=== PATIENT | female | born 1985 | race Caucasian/White ===

== ENCOUNTER 2016-07-11 19:18 | Emergency (ER) | payer MEDICAID ==
[2016-07-11 19:27] VITALS: RESP 16
[2016-07-11] MEDS ORDERED: KETAMINE 500 MG/10 ML VIAL IM ONE (19:53)
--- NOTE | 2016-07-11 20:30 | EDPHY ---
H & P Stated Complaint: infection L wrist Time Seen by Provider: 07/11/16 19:23 HPI/ROS: CHIEF COMPLAINT: Left wrist abscess HISTORY OF PRESENT ILLNESS: The patient presents the emergency department with an abscess to her left wrist. The patient reportedly has a history of IV drug use. Patient also has a history of being deaf. She is able to communicate via writing. The patient denies additional abscesses or skin lesions. The patient denies fever. She has severe pain in the area of the abscess which is quite swollen. The patient denies any numbness in her hand. Patient does have a prior history of multiple dental infections. Patient denies antibiotic allergies. REVIEW OF SYSTEMS: A comprehensive 10 point review of systems is otherwise negative aside from elements mentioned in the history of present illness. Source: Patient Exam Limitations: No limitations - Personal History Tetanus Vaccine Date: < 10 years - Medical/Surgical History Hx Asthma: No Hx Chronic Respiratory Disease: No Hx Diabetes: No Hx Cardiac Disease: No Hx Renal Disease: No Hx Cirrhosis: No Hx Alcoholism: No Hx HIV/AIDS: No Hx Splenectomy or Spleen Trauma: No Other PMH: DEAF - Social History Smoking Status: Current every day smoker - Physical Exam Exam: General Appearance: Disheveled female, no acute distress Eyes: Pupils equal and round no pallor or injection ENT, Mouth: Chronically deaf Respiratory: There are no retractions, lungs are clear to auscultation Cardiovascular: Regular rate and rhythm Gastrointestinal: Abdomen is soft and nontender, no masses, bowel sounds normal Skin: Large abscess noted on the dorsum of the left hand over the wrist crease Musculoskeletal: Described above Constitutional: Initial Vital Signs Temperature (C) 36.3 C 07/11/16 19:21 Heart Rate 115 H 07/11/16 19:21 Respiratory Rate 16 07/11/16 19:21 Blood Pressure 120/67 07/11/16 19:21 O2 Sat (%) 93 07/11/16 19:21 Allergies/Adverse Reactions: chicken derived Allergy (Mild, Verified 05/22/15 19:51) oranges Allergy (Uncoded 05/22/15 19:51) Home Medications: Medication Instructions Recorded Amoxicillin Trihydrate [Amoxil] 500 mg PO TID 7 Days 05/22/15 Hydrocodone/APAP 5/325 [Birney 1 tab PO Q4 #10 tab 06/30/15 5/325] Penicillin V Potassium [Pen Vk] 500 mg PO Q6H 7 Days 06/30/15 Hydrocodone/APAP 5/325 [Birney 1 - 2 tab PO Q4H PRN #7 tab 07/27/15 5/325] Penicillin V Potassium [Pen Vk] 500 mg PO Q6H 10 Days 07/27/15 Penicillin V Potassium 500 mg PO TID #30 tablet 02/25/16 oxyCODONE/APAP 5/325 [Percocet 1 - 2 tab PO Q4-6PRN PRN #15 tab 02/25/16 5/325] Hydrocodone/APAP 5/325 [Birney 1 - 2 each PO Q6 PRN #20 tab 07/11/16 5/325] Sulfamethox/Tmp 800/160 mg 1 tab PO BID #20 tab 07/11/16 [Bactrim DS] Medical Decision Making Procedures: Procedure: Abscess drainage. The patient's abscess was located on the left wrist. Risks, benefits, alternatives discussed with the patient and consent obtained. The abscess was incised with a #11 blade and purulent drainage was expressed. The abscess cavity was copiously irrigated The procedure was performed by myself. ED Course/Re-evaluation: The patient presents to the ED with a shooter's abscess on her wrist. It was incised and drained in the ED by myself. It was copiously irrigated. There is no evidence of significant surrounding cellulitis. The patient will be started on a short course of Bactrim. She is advised to return to the emergency department for increasing pain, redness, swelling, fever or other concerns. Differential Diagnosis: Differential diagnosis considered includes abscess, cellulitis, necrotizing fasciitis - Data Points Medications Given: Discontinued Medications Ketamine HCl (Ketamine) 200 mg IM EDNOW ONE Stop: 07/11/16 19:54 Last Admin: 07/11/16 20:20 Dose: Not Given Departure - Departure Disposition: Home, Routine, Self-Care Clinical Impression: Abscess of arm, left Condition: Good Instructions: Abscess Follow-up (ED) Additional Instructions: 1. Take antibiotics as directed for next 7 days. 2. Return to the ED for recurrent pain, swelling, fever, increasing pain, increasing redness other concerns. 3. Please follow up with your regular physician as needed
[2016-07-11] MEDS ORDERED: HYDROCODONE/APAP 5/325 TAB PO ONE (20:32)
[2016-07-11] MEDS ORDERED: HYDROCODONE/APAP 5/325 TAB ONE (20:33)
[2016-07-11] MEDS ORDERED: SULFAMETHOX/TMP 800/160 MG 1 TAB PO ONE (20:33)
[2016-07-11] MEDS ORDERED: HYDROCOD/APAP 5/325 PREPACK#6 BTL TAKEHOME ONE (21:14)
[2016-07-11 21:25] VITALS: BP 93/67; PULSE 95; TEMP 98.2; O2SAT 98
== END 2016-07-11 21:25 | disposition home or self-care (01) ==
PROC: 0H9EXZZ Drainage of Left Lower Arm Skin, External Approach (ICD-10-PCS; principal; 2016-07-11)
DX: L02.414 Cutaneous abscess of left upper limb (principal); F17.200 Nicotine dependence, unspecified, uncomplicated

== ENCOUNTER 2016-10-06 09:30 | Emergency (ER) | payer MEDICAID ==
[2016-10-06 09:39] VITALS: TEMP 98.1
[2016-10-06] MEDS ORDERED: KETOROLAC 30 MG/1 ML SDV IVP ONE (11:58)
[2016-10-06 12:05] VITALS: O2SAT 96
[2016-10-06 12:09] LABS: % IMMATURE GRANULYOCYTES 0.8 % (0.0-1.1); ABSOLUTE IMMATURE GRANULOCYTES 0.14 10^3/uL (0.00-0.10); ADD DIFF? NO; ADD MORPH? NO; ADD SCAN? NO; ATYPICAL LYMPHOCYTE FLAG 0 (0-99); FRAGMENT RBC FLAG 0 (0-99); HEMATOCRIT 34.1 % (38.0-47.0); HEMOGLOBIN 11.7 g/dL (12.6-16.3); LEFT SHIFT FLG 10 (0-99); LIPEMIA HEMOLYSIS FLAG 90 (0-99); MEAN CELL HEMOGLOBIN 29.4 pg (27.9-34.1); MEAN CELL HEMOGLOBIN CONCENTR. 34.3 g/dL (32.4-36.7); MEAN CELL VOLUME 85.7 fL (81.5-99.8); MEAN PLATELET VOLUME 9.6 fL (8.7-11.7); PLATELET CLUMPS FLAG 0 (0-99); PLATELET COUNT 304 10^3/uL (150-400); RED BLOOD CELL COUNT 3.98 10^6/uL (4.18-5.33); RED CELL DISTRIBUTION WIDTH 12.7 % (11.5-15.2)
[2016-10-06 12:23] LABS: ANION GAP 8 mEq/L (8-16); CALCIUM 6.5 mg/dL (8.5-10.4); CARBON DIOXIDE 20 mEq/l (22-31); CHLORIDE 112 mEq/L (97-110); CREATININE 0.4 mg/dL (0.6-1.0); GLOMERULAR FILTRATION RATE > 60; GLUCOSE 71 mg/dL (70-100); POTASSIUM 2.8 mEq/L (3.5-5.2); SODIUM 140 mEq/L (134-144)
[2016-10-06] MEDS ORDERED: POTASSIUM CL 20 MEQ/15 ML UDCUP PO ONE (12:33)
[2016-10-06] MEDS ORDERED: MAGNESIUM SULF 1 GM/DEXTROSE 100 ML IV ONE (13:45)
--- NOTE | 2016-10-06 14:39 | EDPHY ---
H & P Stated Complaint: pain r leeg/inner thigh Time Seen by Provider: 10/06/16 09:47 HPI/ROS: Please note patient is deaf, academic adviser is used to communicate with patient Chief complaint: Right leg pain History of present illness: This is a 31-year-old female who presents to the emergency department with complaint of right leg pain. Patient reports the onset of right leg pain today. She reports pain to the inner thigh and outer aspect of the thigh. She states the pain is severe. It hurts to even touch. She states yesterday she had pain throughout her left leg although it is resolved. She is also reporting pain in her left hand after she took off a ring. She denies any specific precipitating factors. She denies alleviating factors. She denies other associated signs or symptoms including no fevers or trauma. Review of systems: A 10 point review of systems was obtained and other than described above was negative - Personal History LMP (Females 10-55): Over 28 Days Ago Current Tetanus/Diphtheria Vaccine: Yes Tetanus Vaccine Date: < 10 years - Medical/Surgical History Hx Asthma: No Hx Chronic Respiratory Disease: No Hx Diabetes: No Hx Cardiac Disease: No Hx Renal Disease: No Hx Cirrhosis: No Hx Alcoholism: No Hx HIV/AIDS: No Hx Splenectomy or Spleen Trauma: No Other PMH: DEAF - Social History Smoking Status: Current every day smoker - Physical Exam Exam: General Appearance: Alert, appears uncomfortable. Eyes: Pupils equal and round no pallor or injection. ENT, Mouth: Mucous membranes moist. Respiratory: There are no retractions, lungs are clear to auscultation. Cardiovascular: Tachycardic with regular rhythm. Gastrointestinal: Abdomen is soft and nontender, no masses, bowel sounds normal. Neurological: Alert. Strength and sensation intact and symmetrical. Skin: Warm and dry, no rashes. No skin lesions noted. Musculoskeletal: Head is normocephalic, atraumatic. Spine is nontender to palpation. Chest wall intact palpation. Discomfort diffusely on palpation of the left hand. Discomfort along the inner and outer aspect of the right thigh. No deformities noted. Patient is moving all extremities without difficulty. She is ambulating on her own. Psychiatric: Patient does appear agitated Constitutional: Initial Vital Signs Temperature (C) 36.7 C 10/06/16 09:35 Heart Rate 126 H 10/06/16 09:35 Respiratory Rate 20 10/06/16 09:35 Blood Pressure 99/79 L 10/06/16 09:35 O2 Sat (%) 95 10/06/16 09:35 O2 Delivery Mode Room Air Allergies/Adverse Reactions: chicken derived Allergy (Mild, Verified 10/06/16 09:34) oranges Allergy (Uncoded 05/22/15 19:51) Home Medications: Medication Instructions Recorded NK [No Known Home Meds] 10/06/16 Medical Decision Making - Diagnostics Imaging Results: Imaging Impressions Extremity Venous Study 10/06/16 11:34 Impression: No evidence of deep vein thrombosis in the right leg. Findings and recommendations discussed with CRISTINA Hemphill at 1241 hour, 2016. Final report concurs with initial preliminary interpretation. Obstetrics Ultrasound 10/06/16 13:41 Impression: 1. Normal transabdominal ultrasound appearance of the uterus and right ovary. 2. Could not complete the study to evaluate the left ovary today. 3. Based on the low positive quantitative hCG level, it is possible that the state is very early. If that is of clinical relevance, follow-up ultrasound/quantitative hCG is then suggested. Findings and recommendations discussed with CRISTINA Hemphill, at 1530 hours, on October 06, 2016. Final report concurs with initial preliminary interpretation. ED Course/Re-evaluation: Patient is discussed with my secondary supervising physician Dr. Shahriar Sanchez. Patient presents to the emergency department complaining of leg pain and secondarily hand pain. She is nontoxic. She is neurovascularly intact. Ultrasound of the right leg is negative for DVT, blood studies are concerning for decreased potassium and magnesium. Due to miscommunication with nursing staff I was told that patient had a negative test and Toradol was ordered. However it turned out that she did not have a test performed. After performing it it turned out that she has a positive test. Patient is informed of the positive test. I have moved on to evaluate complications as a source of discomfort an an ultrasound is ordered, it was not completed as patient refused transvaginal although what was performed was unremarkable. I ordered replenishment with magnesium IV but she refused. She did take oral potassium. I was working on correcting patient's electrolyte disturbances. Evaluating extremity pain and new diagnosis of . Further I had discussed the case with case management to began arranging follow-up care. Patient all of a sudden declined further treatment and asked to be discharged. A museum exhibit designer had been used for a period of time in the emergency department, we also communicated with patient via writing, I believe she clearly understood what was going on in terms of evaluation and treatment. Do believe she is competent to decide to leave on her own. She was informed she can return at any time. She was given referral information for outpatient follow-up. Patient left AMA. Differential Diagnosis: Included but not limited to musculoskeletal pain such as sprain or strain or fracture, thromboembolic disease, arthropathies, electrolyte disturbances - Data Points Laboratory Results: Laboratory Results 10/06/16 11:57 10/06/16 11:57 10/06/16 10/06/16 10/06/16 Unknown 13:00 13:00 WBC RBC Hgb Hct MCV MCH MCHC RDW Plt Count MPV Neut % (Auto) Lymph % (Auto) Orange % (Auto) Eos % (Auto) Baso % (Auto) Nucleat RBC Rel Count Absolute Neuts (auto) Absolute Lymphs (auto) Absolute Monos (auto) Absolute Eos (auto) Absolute Basos (auto) Absolute Nucleated RBC Immature Gran % Immature Gran # Sodium Potassium Chloride Carbon Dioxide Anion Gap BUN Creatinine Estimated GFR Glucose Calcium Magnesium Beta HCG, Qual POSITIVE Beta HCG, Quant 110.83 mIU/mL H mIU/mL (0-4.83) Patient ABO/Rh A POSITIVE 10/06/16 10/06/16 10/06/16 11:57 11:57 11:57 WBC 18.48 10^3/uL H 10^3/uL (3.80-9.50) RBC 3.98 10^6/uL L 10^6/uL (4.18-5.33) Hgb 11.7 g/dL L g/dL (12.6-16.3) Hct 34.1 % L % (38.0-47.0) MCV 85.7 fL fL (81.5-99.8) MCH 29.4 pg pg (27.9-34.1) MCHC 34.3 g/dL g/dL (32.4-36.7) RDW 12.7 % % (11.5-15.2) Plt Count 304 10^3/uL 10^3/uL (150-400) MPV 9.6 fL fL (8.7-11.7) Neut % (Auto) 76.3 % H % (39.3-74.2) Lymph % (Auto) 10.9 % L % (15.0-45.0) Orange % (Auto) 11.7 % % (4.5-13.0) Eos % (Auto) 0.0 % L % (0.6-7.6) Baso % (Auto) 0.3 % % (0.3-1.7) Nucleat RBC Rel Count 0.0 % % (0.0-0.2) Absolute Neuts (auto) 14.11 10^3/uL H 10^3/uL (1.70-6.50) Absolute Lymphs (auto) 2.02 10^3/uL 10^3/uL (1.00-3.00) Absolute Monos (auto) 2.16 10^3/uL H 10^3/uL (0.30-0.80) Absolute Eos (auto) 0.00 10^3/uL L 10^3/uL (0.03-0.40) Absolute Basos (auto) 0.05 10^3/uL 10^3/uL (0.02-0.10) Absolute Nucleated RBC 0.00 10^3/uL 10^3/uL (0-0.01) Immature Gran % 0.8 % % (0.0-1.1) Immature Gran # 0.14 10^3/uL H 10^3/uL (0.00-0.10) Sodium 140 mEq/L mEq/L (134-144) Potassium 2.8 mEq/L L mEq/L (3.5-5.2) Chloride 112 mEq/L H mEq/L (97-110) Carbon Dioxide 20 mEq/l L mEq/l (22-31) Anion Gap 8 mEq/L mEq/L (8-16) BUN 9 mg/dL mg/dL (7-23) Creatinine 0.4 mg/dL L mg/dL (0.6-1.0) Estimated GFR > 60 Glucose 71 mg/dL mg/dL (70-100) Calcium 6.5 mg/dL L mg/dL (8.5-10.4) Magnesium 1.4 mg/dL L mg/dL (1.6-2.3) Beta HCG, Qual Beta HCG, Quant Patient ABO/Rh Medications Given: Discontinued Medications Magnesium Sulfate/Dextrose (Magnesium Sulf 1 Gm (Premix)) 100 mls @ 100 mls/hr IV EDNOW ONE Stop: 10/06/16 14:44 Last Admin: 10/06/16 14:39 Dose: Not Given Ketorolac Tromethamine (Toradol) 30 mg IVP EDNOW ONE Stop: 10/06/16 11:59 Last Admin: 10/06/16 12:03 Dose: 30 mg Potassium Chloride (Potassium Chloride Oral Liquid) 20 meq PO EDNOW ONE Stop: 10/06/16 12:34 Last Admin: 10/06/16 12:40 Dose: 20 meq Departure - Departure Disposition: Against Medical Advice Clinical Impression: Leg pain, Condition: Good Instructions: (ED), Leg Pain (ED) Additional Instructions: You have been offered further evaluation and care in the emergency room including imaging studies, further medications and treatment and even possible admission to the hospital, you have declined, this is against medical advice, could have a life-threatening condition, if any time you want further evaluation please return to the emergency room. If your symptoms worsen return to the emergency room. Referrals: NONE *PRIMARY CARE P,. [Primary Care Provider] - As per Instructions [facility],. [Clinic] - As per Instructions
[2016-10-06 14:43] VITALS: BP 119/80; PULSE 110; RESP 18
[2016-10-07] MEDS ORDERED: THROMBIN (BOVINE) 20,000 UNIT VIAL TP ONE (21:25)
== END 2016-10-06 14:44 | disposition left against medical advice (07) ==
DX: O99.89 Other specified diseases and conditions complicating pregnancy, childbirth and the puerperium (principal); M79.604 Pain in right leg; F17.200 Nicotine dependence, unspecified, uncomplicated; Z3A.00 Weeks of gestation of pregnancy not specified
CPT/HCPCS: 96374; J1885; J3475

== ENCOUNTER 2016-10-07 05:59 | Inpatient (IN) | payer MEDICAID ==
--- NOTE | 2016-10-07 06:21 | EDPHY ---
H & P Source: Patient Exam Limitations: Language barrier - Personal History Tetanus Vaccine Date: < 10 years - Medical/Surgical History Hx Asthma: No Hx Chronic Respiratory Disease: No Hx Diabetes: No Hx Cardiac Disease: No Hx Renal Disease: No Hx Cirrhosis: No Hx Alcoholism: No Hx HIV/AIDS: No Hx Splenectomy or Spleen Trauma: No Other PMH: DEAF - Social History Smoking Status: Current every day smoker Time Seen by Provider: 10/07/16 06:01 HPI/ROS: History is limited as we are currently awaiting the communications designer to arrive. HPI The patient presents with continued right leg pain. She was seen in the emergency room yesterday and has been having pain for the last 2 days. When she got home from the ER, she went to bed, and awoke about an hour ago with very severe pain, yelling and screaming and pointing toward her right leg. The patient was in the emergency room yesterday for right leg pain. She had a DVT study which was unremarkable. Her HCG returned at 110. She had an abdominal OB ultrasound that revealed no obvious IUP. Labs were checked and her potassium was low at 2.8 , magnesium was also low. During her visit she refused any additional treatment and left against medical advice. REVIEW OF SYSTEMS Constitutional: No fever, no chills. Eyes: No discharge. ENT: No sore throat. Cardiovascular: No chest pain, no palpitations. Respiratory: No cough, no shortness of breath. Gastrointestinal: No abdominal pain, no vomiting. Genitourinary: No hematuria. Musculoskeletal: No back pain. Skin: No rashes. Neurological: No headache. PMHx: Currently Soc Hx: IV drug user PHYSICAL General Appearance: Alert, crying, pointing to her right inner thigh Eyes: Pupils equal and round no pallor or injection ENT, Mouth: Mucous membranes dry Respiratory: There are no retractions, lungs are clear to auscultation Cardiovascular: Tachycardic rate and regular rhythm Gastrointestinal: Abdomen is soft and non-tender, no masses, bowel sounds normal Neurological: A&O, moves all extremities Skin: Warm and dry, no rashes Musculoskeletal: Neck is supple non tender Extremities: symmetrical, tenderness to palpation of R medial thigh with no overlying skin changes, limited range of R hip because of pain Psychiatric: Patient is oriented X 3, there is no agitation (Riguzzi,Darling) Constitutional: Initial Vital Signs Temperature (C) 36.4 C 10/07/16 06:00 Heart Rate 120 H 10/07/16 06:00 Respiratory Rate 22 H 10/07/16 06:00 Blood Pressure 102/58 L 10/07/16 06:00 O2 Sat (%) 96 10/07/16 06:00 O2 Delivery Mode Room Air Allergies/Adverse Reactions: chicken derived Allergy (Mild, Verified 10/07/16 06:18) oranges Allergy (Uncoded 10/07/16 06:18) Home Medications: Medication Instructions Recorded NK [No Known Home Meds] 10/06/16 Medical Decision Making - Diagnostics Imaging Results: Imaging Impressions Lower Extremity MRI 10/07/16 07:35 Impression: Extensive myositis and fasciitis medial, posterior, and lateral to the right hip and extending caudally in the proximal thigh posteriorly and laterally, as above. Results discussed with Dr. Randal Bermudez. Results discussed with Dr. Sanjeev Wolf. Lumbar Spine MRI 10/07/16 07:36 Impression: Normal. No source for right leg pain identified. No evidence for epidural abscess or diskitis. Results to the ED at 3:46 PM. Chest x-ray personally interpreted as normal, 708. (Randal Bermudez) Differential Diagnosis: This is a 31-year-old female with history of IV drug use, ED visit yesterday for leg pain with normal DVT study though found to be hypokalemic, hypomagnesemic and with early . She left AMA. She now returns with continued leg pain for the last hour. On exam, she has no signs of trauma, she has full range of motion, she has no signs of infection. Differential diagnosis includes muscle cramps from electrolyte disturbance, neuropathic pain , opiate withdrawal. I plan to establish IV access, check basic labs including repeat electrolytes. We have called for the film flat inspector as well. (Darling Adair) Critical Care Time: Critical care time spent by me, Dr. Bermudez, exclusively with the care of this patient was 30 minutes, exclusive of PA or TOP INVENTORY CONTROL EXECUTIVE time and exclusive of separate procedures. The organ system at risk was musculoskeletal or infectious and I ordered multiple diagnostic studies, IV antibiotics, consultation with surgeon and hospitalist and Infectious Disease physician, IV fluids; to stabilize the patient and prevent worsening of the patient's condition. (Randal Bermudez) Other Provider: Care assumed 700; WBC noted 28k, awaiting communications designer. Initial hR 120 also noted. History and physical obtained with the communications designer who is present in person at 7:20; performed with the patient's nurse and the draw frame runner in the room. She describes IV drug use, last 2 days ago. Right hip and leg pain for at least the last 2-3 days, today cannot walk. Mild at rest, severe with any movement or weight-bearing. She points to her right medial thigh as the area of discomfort. It is tender to palpation. She denies any back pain or weakness or numbness in extremities. No recent injury fall or trauma to the area. No urinary respiratory or vaginal symptoms. Social history: IV drug use 2 days ago Past medical history: , otherwise no surgeries or other overnight hospital stays On examination: the patient has difficulty moving in the bed because of pain with any motion of her right hip or femur. She declined additional pain medication because of . Abdomen soft and nontender without any rebound or guarding. No hernia appreciated. Her lips look dry and she clinically appears dehydrated. She has some mild swelling on the right medial thigh in the area of pain but no visible redness and no crepitus or eschar and no lymphangitis. Normal range of motion of the knee and ankle. Compartments of the thigh are soft to palpation. She does have severe pain with any rotation of the right hip or any movement of the right femur. Plan for MRI to evaluate for possibility of septic joint in the right hip or deep space my situs or fasciitis or even epidural abscess causing radicular symptoms. She is high risk with history of IV drug abuse and noted leukocytosis. Plan for surgical consultation, discussed with Allison Delatorre 745, aware and will consult on patient. Discussed in detail with infectious disease computer systems consultant Dr. Rosenberg at 749am, give IV Vancomycin 1g empirically now, testing with MRI as discussed, will consult. [facility] Wolf admit stepdown, 808. MRI per Gray at 3:40 p.m. shows fasciitis in the hip and thigh, discussed again with Dr. Delatorre at 3:41 p.m. who will consult for surgery. (Randal Bermudez) - Data Points Laboratory Results: Laboratory Results 10/07/16 06:10 10/07/16 06:10 10/07/16 06:30 Beta HCG, Quant 94.48 mIU/mL H mIU/mL (0-4.83) Medications Given: Discontinued Medications Sodium Chloride (Ns) 1,000 mls @ 0 mls/hr IV ONCE ONE PRN Reason: Wide Open Stop: 10/07/16 06:25 Last Admin: 10/07/16 06:20 Dose: 1,000 mls Sodium Chloride (Ns) 1,000 mls @ 0 mls/hr IV ONCE ONE PRN Reason: Wide Open Stop: 10/07/16 07:40 Last Admin: 10/07/16 08:05 Dose: 1,000 mls Sodium Chloride (Ns) 1,000 mls @ 0 mls/hr IV ONCE ONE PRN Reason: Wide Open Stop: 10/07/16 07:40 Last Admin: 10/07/16 08:20 Dose: 1,000 mls Vancomycin/Sodium Chloride (Vancomycin 1 Gm (Premix)) 250 mls @ 250 mls/hr IV EDNOW ONE PRN Reason: Protocol Stop: 10/07/16 08:49 Last Admin: 10/07/16 08:46 Dose: 250 mls Sodium Chloride (Ns) 1,000 mls @ 3,000 mls/hr IV ONCE ONE Stop: 10/07/16 13:36 Last Admin: 10/07/16 13:39 Dose: 1,000 mls Sodium Chloride (Ns) 1,000 mls @ 3,000 mls/hr IV ONCE ONE Stop: 10/07/16 16:45 Last Admin: 10/07/16 16:42 Dose: 1,000 mls Lorazepam (Ativan Injection) 1 mg IVP ONCE ONE Stop: 10/07/16 13:18 Last Admin: 10/07/16 13:37 Dose: 1 mg Morphine Sulfate (Morphine) 6 mg IVP EDNOW ONE Stop: 10/07/16 06:45 Last Admin: 10/07/16 07:21 Dose: 6 mg Morphine Sulfate (Morphine) 5 mg IV ONCE ONE Stop: 10/07/16 13:01 Last Admin: 10/07/16 12:54 Dose: 5 mg Departure - Departure Disposition: [facility] Clinical Impression: Right thigh pain Leukocytosis Qualifiers: Leukocytosis type: unspecified Qualified Code(s): D72.829 - Elevated white blood cell count, unspecified Condition: Fair
[2016-10-07] MEDS ORDERED: NS 1,000 ML IV ONE ×5 (06:24→16:26)
[2016-10-07 06:26] LABS: ADD DIFF? YES; ADD MORPH? NO; ADD SCAN? NO; ATYPICAL LYMPHOCYTE FLAG 0 (0-99); FRAGMENT RBC FLAG 0 (0-99); HEMATOCRIT 36.1 % (38.0-47.0); HEMOGLOBIN 12.4 g/dL (12.6-16.3); LEFT SHIFT FLG 50 (0-99); LIPEMIA HEMOLYSIS FLAG 90 (0-99); MEAN CELL HEMOGLOBIN 29.7 pg (27.9-34.1); MEAN CELL HEMOGLOBIN CONCENTR. 34.3 g/dL (32.4-36.7); MEAN CELL VOLUME 86.4 fL (81.5-99.8); MEAN PLATELET VOLUME 9.7 fL (8.7-11.7); PLATELET CLUMPS FLAG 10 (0-99); PLATELET COUNT 391 10^3/uL (150-400); RED BLOOD CELL COUNT 4.18 10^6/uL (4.18-5.33); RED CELL DISTRIBUTION WIDTH 12.6 % (11.5-15.2)
[2016-10-07 06:39] LABS: ALANINE AMINOTRANSFERASE 53 IU/L (9-52); ALBUMIN 3.2 g/dL (3.5-5.0); ALKALINE PHOSPHATASE 121 IU/L (38-126); ANION GAP 10 mEq/L (8-16); ASPARTATE AMINOTRANSFERASE 43 IU/L (14-46); BILIRUBIN,TOTAL 0.6 mg/dL (0.1-1.4); CARBON DIOXIDE 25 mEq/l (22-31); CHLORIDE 102 mEq/L (97-110); CREATININE 0.5 mg/dL (0.6-1.0); GLOMERULAR FILTRATION RATE > 60; GLUCOSE 94 mg/dL (70-100); MAGNESIUM 1.9 mg/dL (1.6-2.3); SODIUM 137 mEq/L (134-144); TOTAL PROTEIN 6.6 g/dL (6.3-8.2)
[2016-10-07 07:11] LABS: PLATELET ESTIMATE ADEQUATE (ADEQ); TOXIC GRANULATION PRESENT; TOXIC VACUOLIZATION PRESENT
[2016-10-07 07:44] LABS: HEMATOCRIT 36.1 % (38.0-47.0)
[2016-10-07] MEDS ORDERED: VANCOMYCIN HCL/NORMAL SALINE 250 ML IV ONE (07:50)
[2016-10-07 08:30] LABS: CK-MB INTERPRETATION NEGATIVE (NEGATIVE)
[2016-10-07 08:31] LABS: CREATINE KINASE-MB FRACTION 3.33 ng/mL (0-3.19)
--- NOTE | 2016-10-07 11:55 | PDGENHP ---
History and Physical History and Physical: HISTORY AND PHYSICAL CC: Right leg pain HISTORY: This patient is deaf and does only sign language so we have an high school learning support teacher here with her who is providing all the communication with us. This patient has proximal right leg pain, primarily in the inner aspect of the thigh but fairly diffuse in that region. She was seen here yesterday presenting with 2 days of pain at that time. She had ultrasound of the leg and an incomplete pelvic ultrasound without transvaginal views done. These images showed no specific cause for this pain. She did not have fever. She left the hospital against medical advice from the emergency room at that time. She comes back in today with ongoing pain in the same area. She denies any trauma to the area. At this time the patient is fairly agitated and angry, and is declining to answer any other questions through the high school learning support teacher. I am unable to get any other acute history or review of systems history from her at this time and there is no one else at this point to provide it. ROS: A comprehensive 10 system review is attempted and revealed no other significant findings, however the information may be incomplete due to the patient's unwillingness to participate in this discussion thoroughly. PAST MEDICAL HISTORY: IV drug use with methamphetamine, most recently 3 days ago per her report Hand abscess related to above Multiple dental infections Deafness both ears section FAMILY MEDICAL HISTORY: She is unfamiliar with her family medical history and not in contact with her family SOCIAL HISTORY: IV drug abuser: She tells me she uses occasional methamphetamine last injected by her friend 3 days ago. She says she has her own needles that she uses and never shares. She would not answer for me if she has had HIV testing. She says that she smokes, does not use any alcohol, does use marijuana. She apparently lives in an apartment with a roommate. She has boyfriend. I am unable to get any more details about her social history at this point including whether she still has her child. She says she has no family in the area MEDICATIONS: The patients list has been reconciled by our clinical pharmacist in the EMR. I have reviewed the list and ordered appropriate medicines. PHYSICAL EXAMINATION: Vital Signs: Initially tachycardic and tachypneic, better after initial resuscitation in the ER. 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 She seems to be oriented and I do not at this point detect any confusion but her neurologic exam is difficult due to the language barrier as well as her unwillingness to participate Skin: warm, dry, good color, no rash or other lesions HEENT: normal Resps: tachypneic Lungs: clear breath sounds Heart: regular, no murmur Abdomen: soft, nondistended, nontender, +BS, no mass Upper Extremities: normal Lower Extremities: She will not really allow me to adequately examine her right leg. No Bleeding or bruising Neurologic: normal speech/language, normal calender operator helper, no focal weakness IV site: looks normal LABORATORY DATA: White blood cells 28,000, minimal anemia CRP elevated 255 Lactic acid 1.2 CPK mildly elevated 188 with normal troponin RADIOLOGY STUDIES: Chest x-ray single view is done in the ER today, my personal review and interpretation of the image: Normal chest x-ray MRI of the leg and pelvis has been ordered but is not done yet ASSESSMENT: 1- right leg pain highly suspicious for deep soft tissue infection but etiology uncertain 2- systemic immune response syndrome with possible early sepsis 3- elevated beta HCG suggesting but no currently visible on ultrasound so likely early 4- IV drug use with methadone most recently 3 days ago per her report At this point I am highly suspicious for an abscess in her leg, however we need further imaging to getting better look anatomically. PLANS: -we have now finally got the question is filled out and proceeding with getting MRI of her leg -she was given a dose of vancomycin in the ER after blood cultures were drawn. I will consider her antibiotic strategy after we see what her MRI looks like -if indeed she has an abscess she will need surgical consultation for incision and drainage or else an IR procedure, will be determined after MRI -NPO for now pending further decisions I have reviewed the patient's case in detail with Dr. Randal Mccollum, Enoch Stark, Sean Rahman I have reviewed the patient's past medical records as part of this assessment, including previous ER visit records
[2016-10-07] MEDS ORDERED: ONDANSETRON DISINTEGRATING 4 MG TAB PO PRN (13:17)
[2016-10-07] MEDS ORDERED: LORazepam 2 MG/ML INJ IVP ONE (13:17)
[2016-10-07] MEDS: CLINDAMYCIN 900 MG/DEXTROSE 50 ML IV SCH ×2 (16:01→23:51)
[2016-10-07] MEDS: PIPERACILLIN/TAZO 4.5 GM/DEX 100 ML IV SCH ×2 (16:01→23:17)
--- NOTE | 2016-10-07 16:34 | HOSPPROG ---
Hospitalist Progress Note Assessment/Plan: Since my last note earlier today, she has continued to be very tachycardic and tachypneic. She required doses of morphine and ativan to be given to get mri done; currently she remains quite agitated, stating repeatedly just let me sleep. She however is still somewhat sedated from those medicines. She appears somewhat disoriented but this is hard to evaluate at present. She has started having some vaginal bleeding. At 1 point she did mention some abdominal discomfort to the nurses. Again she had yesterday a beta HCG of 110, transabdominal ultrasound with no intrauterine nothing in the right adnexal which appeared normal left adnexa not visible. She did not allow vaginal ultrasound yesterday. I have repeated a beta HCG today and is down somewhat at 98. I have reviewed her case with Dr. Flores of obstetrics who will see the patient. I think she is possibly having a spontaneous , less likely a ectopic . There is no current sign of significant hemorrhage per se but we may need to reassess her abdomen with ultrasound. At this point either way I think that she most likely has a that is not likely to survive and she has enough other medical issues that we need to press on with that we cannot delay those other treatments. It would be ideal to have a transvaginal ultrasound but I am not sure if we will be able to get to doing this this moment. She has finally been able to get through her MRI scan and the findings include dramatic changes with necrotizing fasciitis and myositis and subcutaneous fat involvement. The skin is still intact over this area. I reviewed her case with Dr. Castellano, Dr. Stark, and Dr. Ezra Delatorre is also aware and we are getting prepared to get her to the operating room. She currently remains with good blood pressure but again tachycardic with pulse in the 130s and tachypneic and she has some fever. We have added clindamycin and Zosyn to her antibiotic regimen. I am ordering another lactate level at this point and giving her some more IV fluid resuscitation will watch her hemodynamics very closely. > 45 MINS BEDSIDE CRITCAL CARE TIME IN ADDITION TO PREVIOUS VISITS TODAY Objective: Vital Signs Temp Pulse Resp BP Pulse Ox 39.3 C H 132 H 28 H 122/58 H 98 10/07/16 15:45 10/07/16 15:45 10/07/16 15:45 10/07/16 15:45 10/07/16 15:45 10/06/16 10/07/16 10/08/16 06:59 06:59 06:59 Intake Total 3250 Balance 3250 ICD10 Worksheet Patient Problems: Problems Problem Status Onset Leukocytosis Acute Right thigh pain Acute
[2016-10-07 17:52] LABS: ANION GAP 6 mEq/L (8-16); CALCIUM 7.6 mg/dL (8.5-10.4); CARBON DIOXIDE 21 mEq/l (22-31); CHLORIDE 106 mEq/L (97-110); CREATININE 0.5 mg/dL (0.6-1.0); GLOMERULAR FILTRATION RATE > 60; GLUCOSE 104 mg/dL (70-100); POTASSIUM 3.5 mEq/L (3.5-5.2); SODIUM 133 mEq/L (134-144)
--- NOTE | 2016-10-07 17:57 | SOAPPROG ---
SOAP Progress Note Assessment/Plan: Consult requested, consult advice given to Dr Wolf regarding this patient via telephone. Assessment: Pt is a 31 y/o w/ now new DX of necrotizing fasciitis, found yesterday to have a +QN HCG during her work up. She just started to have vaginal bleeding today. Her main complaint has been right thigh pain, but her evaluation has been supposedly difficult due to her leaving AMA and not wanting to be very cooperative with exams. It appears that her QN HCG is falling over the last 24 hrs. This drop in QN HCG along with her light bleeding and no mass or free fluid on pelvic US suggests to me that this is likely an early failed IUP or chemical . I highly doubt any risk of ectopic with a stable HCT, stable BPs, falling QN HCG and no evidence of free fluid on her pelvic US. I recommended that if possible, it would be ideal to get a endovaginal pelvic US to assure her left ovary appears normal. If this does not occur, I would recommend continuing to follow her QN HCG's q48-72 hrs at a minimum or sooner if her clinical status changes. Plan: - Recommend serial QN HCG's q48-72 hours to assure continued downward trend, and if this continues for a week, then once weekly until negative. It's fine to check it q24 hrs if she remains an inpatient to assure a continued trend. - Recommend endopelvic US, if possible, to assure good visualization of her left ovary. - I'm happy to see the patient any time (or my service in my absence) if her clinical status changes with worsening abdominal pain or heavy bleeding > pad/ hour. At this time, it seems more apparent that her main clinical issue of concern is her necrotizing fasciitis. Please reconsult anytime if needed. Thanks. 10/07/16 18:07 Subjective: Per hospitalist, pt having right thigh pain, noted to have a +QN HG of 110 mIU/ mL during work up. Now, having vaginal bleeding that is not heavy. Objective: Vital Signs Temp Pulse Resp BP Pulse Ox 39.3 C H 132 H 28 H 122/58 H 98 10/07/16 15:45 10/07/16 15:45 10/07/16 15:45 10/07/16 15:45 10/07/16 15:45 10/06/16 10/07/16 10/08/16 05:59 05:59 05:59 Intake Total 4900 Output Total 200 Balance 4700 QN HCG's: 110 mIU/mL (10/06 @ 1300) --> 94 mIU/mL (10/07 0630) Pelvic US: Uterus and right ovary appear normal, EMS 8mm, no GS seen. Left ovary not visualized, no free fluid or masses seen. Pt refused endovaginal ultrasound. ICD10 Worksheet Patient Problems: Problems Problem Status Onset Leukocytosis Acute Right thigh pain Acute Threatened in early Acute - ICD10 Problem Qualifiers (1) Threatened in early
--- NOTE | 2016-10-07 18:21 | GCON ---
[f rep st] CONSULTATION INFECTIOUS DISEASE CONSULTATION. REFERRING PHYSICIAN: Sanjeev Wolf MD REASON FOR REFERRAL: Right upper leg soft tissue infection, question fasciitis. HISTORY OF PRESENT ILLNESS: Patient is a 31-year-old female who presented to the emergency room at [facility] this morning. She was complaining of severe right hip and thigh pain. Ini tial workup revealed a marked loose leukocytosis of 29,000. Patient also had MRI imaging of the low er extremities secondary to a positive test which showed extensive myositis and fasciitis in the medial, posterior and lateral upper right leg and right hip. General Surgery is consulted. Patient is prepping for surgery. PAST MEDICAL HISTORY: 1. IV methamphetamine use. 2. History of subcutaneous abscesses. 3. Dental infections. 4. Deafness. PAST SURGICAL HISTORY: Status post section. ANTIBIOTICS: 1. Vancomycin. 2. Clindamycin. ALLERGIES: Patient has no known drug allergies. SOCIAL HISTORY: Patient is an active IV drug user. She admits to methamphetamine use 3 days ago. Patient admits tobacco use, denies alcohol use. Admits to marijuana use. FAMILY HISTORY: Reviewed, noncontributory. REVIEW OF SYSTEMS: Other than that detailed above in history of present illness, a comprehensive 10 -system review is negative. PHYSICAL EXAMINATION: VITAL SIGNS: Temperature maximum is 39.3, temperature current is 39.3, heart rate is 132, respiratory rate is 28, blood pressure is 122/58. GENERAL: Patient is a thin young fe male, in moderate to severe distress secondary to pain. She is deaf. She is alert and oriented x3. HEENT: Normocephalic for age. Atraumatic. No scleral icterus. No oral lesion or drainage from the nares. Eyes: Lids and conjunctivae are within normal limits. Pupils are equal and round bilat erally. NECK: Supple, without meningismus. LUNGS: Clear to auscultation. Tachypneic, short shal low breaths. HEART: Tachycardic but regular. No significant peripheral edema. SKIN: Warm and dr y to the touch. Rash of erythema over the upper right leg. Patient is exquisitely tender in that a sugey. MUSCULOSKELETAL: No other muscle belly tenderness is noted. No joint line effusion or arthri tis seen. NEURO: Cranial nerves 2-12 seem to be intact, peripheral sensation seems to be intact in extremities. LABORATORY DATA: Patient has a CBC dated 10/07/2016, shows a white blood cell count of 28.8, hemogl obin 12.4, hematocrit 36.1, platelet count of 391. Differential shows left shifting. Serum chemist steroids irais on 10/07/2016 are all within normal limits. Creatinine 0.5, AST is 43, ALT is 53. Creatine ki nase is elevated at 182. C-reactive protein is elevated at 255. Beta HCG quant is high at 94.5. U rinalysis is pending. Microbiologic data, patient has blood cultures dated 10/07/2016, which are pending. ASSESSMENT: Severe cellulitis, probably myositis and fasciitis, in the upper right leg. This is se condary to intravenous drug use. We will cover with the current vancomycin and clindamycin, but als o add Zosyn to give beta-lactam coverage to what is possibly strep or staph, but this will also cove r the gram-negative, which can be in the area secondary to injection. Clearly the primary interest of the patient is to get ready for surgery and debridement in order to try to get in front of the ra pid progressing soft tissue infection. PLAN: 1. Vancomycin, 1 g IV q.12 hours. 2. Clindamycin 900 mg IV q.8 hours. 3. Zosyn 4.5 g IV q.6 hours. 4. General Surgery to take to OR. 5. We will follow clinical course. /[id number]/MODL
[2016-10-07] MEDS: VANCOMYCIN 1.25 GM in D5W 250 ML IV SCH (18:26)
--- NOTE | 2016-10-07 19:29 | SOAPPROG ---
SOAP Progress Note Assessment/Plan: Assessment: completely uncooperative 31 female with nec fasciitis/ wbc 29k/ temp 39+ very tender rt thigh needs debridement soon but unable to obtain consent and no apparent family or guardian this is a rapidly devastating situation that needs surgery quickly to prevent and limb loss/ even with surgery we may not save her Plan:to or as an emergency for debridement of nec fasciitis 10/07/16 19:24 Objective: Vital Signs Temp Pulse Resp BP Pulse Ox 39.3 C H 132 H 28 H 122/58 H 98 10/07/16 15:45 10/07/16 15:45 10/07/16 15:45 10/07/16 15:45 10/07/16 15:45 Laboratory Results 10/07/16 17:15 10/06/16 10/07/16 10/08/16 05:59 05:59 05:59 Intake Total 4900 Output Total 200 Balance 4700 ICD10 Worksheet Patient Problems: Problems Problem Status Onset Leukocytosis Acute Right thigh pain Acute Threatened in early Acute
[2016-10-07] MEDS ORDERED: BUPIVACAINE 0.5% 30 ML SDV ONE (20:09)
[2016-10-07] MEDS ORDERED: POLYMYXIN B SULFATE 500,000 UNIT/10 ML SYR IRR ONE (20:09)
[2016-10-07] MEDS ORDERED: PROPOFOL 200 MG/20 ML VIAL ONE (20:35)
[2016-10-07] MEDS ORDERED: PHENYLEPHRINE HCL 100 MCG/ML SYR ONE (21:20)
[2016-10-07] MEDS ORDERED: ROCURONIUM 50 MG/5 ML VIAL ONE (21:20)
[2016-10-07] MEDS ORDERED: fentaNYL 100 MCG/2 ML INJ ONE (21:22)
[2016-10-07] MEDS ORDERED: THROMBIN (BOVINE) 20,000 UNIT SPRAY TP ONE (21:24)
[2016-10-07] MEDS ORDERED: HYDROmorphONE/DILAUDID 2 MG/ML INJ ONE (21:33)
[2016-10-07] MEDS ORDERED: ONDANSETRON 4 MG/2 ML VIAL ONE (22:10)
--- NOTE | 2016-10-07 22:20 | POSTOPPROG ---
Post Op Note Date of Operation: 10/07/16 Surgeon: Ezra Delatorre Anesthesiologist: PIO Anesthesia: GET(General Endotracheal) Pre-op Diagnosis: RT THIGH NECROTIZING FASCIITIS Post-op Diagnosis: SAME Indication: SEPSIS Procedure: I&D AND DEBRIDEMENT OF MEDIAL AND LATERAL COMPARTMENTS WITH WOUND VAC Findings: THIN SEROUS FLUID THRUOUT ALL COMPARTMENTS BUT GOOS VIABLE MUSCLE, FASCIA A Inf/Abcess present in the surg proc area at time of surgery?: Yes Depth: Deep Incisional (Fascial) EBL: 50-100 Complications: 0 Drains: Wound Vac Specimen(s): TISSUE BIOPSY AND CULTURE
--- NOTE | 2016-10-07 22:26 | SOAPPROG ---
SOAP Progress Note Assessment/Plan: Assessment: completely uncooperative 31 female with nec fasciitis/ wbc 29k/ temp 39+ very tender rt thigh needs debridement soon but unable to obtain consent and no apparent family or guardian this is a rapidly devastating situation that needs surgery quickly to prevent and limb loss/ even with surgery we may not save her Plan:to or as an emergency for debridement of nec fasciitis 10/07/16 19:24 10/07/16 22:25 POSTOP STABLE/ SURGICAL FINDINGS VERY UNDERWHELMING COMPARED TO CLINICAL COURSE AND MRI Objective: Vital Signs Temp Pulse Resp BP Pulse Ox 39.3 C H 124 H 18 124/66 H 98 10/07/16 15:45 10/07/16 20:40 10/07/16 20:40 10/07/16 20:40 10/07/16 20:40 Laboratory Results 10/07/16 17:15 10/06/16 10/07/16 10/08/16 05:59 05:59 05:59 Intake Total 5900 Output Total 200 Balance 5700 ICD10 Worksheet Patient Problems: Problems Problem Status Onset Leukocytosis Acute Right thigh pain Acute Threatened in early Acute
[2016-10-07] MEDS: NS 1,000 ML IV SCH (22:31)
[2016-10-08] MEDS: PIPERACILLIN/TAZO 4.5 GM/DEX 100 ML IV SCH ×4 (04:49→22:28)
[2016-10-08 05:15] LABS: ADD DIFF? YES; ADD MORPH? NO; ATYPICAL LYMPHOCYTE FLAG 0 (0-99); FRAGMENT RBC FLAG 0 (0-99); HEMATOCRIT 28.1 % (38.0-47.0); HEMOGLOBIN 9.4 g/dL (12.6-16.3); LIPEMIA HEMOLYSIS FLAG 80 (0-99); MEAN CELL HEMOGLOBIN 29.7 pg (27.9-34.1); MEAN CELL HEMOGLOBIN CONCENTR. 33.5 g/dL (32.4-36.7); MEAN CELL VOLUME 88.6 fL (81.5-99.8); MEAN PLATELET VOLUME 9.8 fL (8.7-11.7); PLATELET CLUMPS FLAG 10 (0-99); PLATELET COUNT 354 10^3/uL (150-400); RED BLOOD CELL COUNT 3.17 10^6/uL (4.18-5.33)
[2016-10-08] MEDS: VANCOMYCIN 1.25 GM in D5W 250 ML IV SCH ×2 (05:25→19:15)
[2016-10-08 05:29] LABS: ALANINE AMINOTRANSFERASE 37 IU/L (9-52); ALBUMIN 1.9 g/dL (3.5-5.0); ALKALINE PHOSPHATASE 83 IU/L (38-126); ANION GAP 5 mEq/L (8-16); ASPARTATE AMINOTRANSFERASE 24 IU/L (14-46); BILIRUBIN,TOTAL 0.8 mg/dL (0.1-1.4); CALCIUM 7.2 mg/dL (8.5-10.4); CARBON DIOXIDE 24 mEq/l (22-31); CHLORIDE 107 mEq/L (97-110); CREATININE 0.5 mg/dL (0.6-1.0); GLOMERULAR FILTRATION RATE > 60; GLUCOSE 102 mg/dL (70-100); POTASSIUM 3.8 mEq/L (3.5-5.2); SODIUM 136 mEq/L (134-144); TOTAL PROTEIN 4.2 g/dL (6.3-8.2)
[2016-10-08 05:29] LABS: COLOR YELLOW; LEUKOCYTE ESTERASE,URINE NEGATIVE (NEGATIVE); NITRITE,URINE NEGATIVE (NEGATIVE)
[2016-10-08 05:30] LABS: ADD SCAN? NO; LEFT SHIFT FLG 180 (0-99)
[2016-10-08 05:59] LABS: LARGE PLATELETS PRESENT; PLATELET ESTIMATE ADEQUATE (ADEQ); TOXIC GRANULATION PRESENT
[2016-10-08] MEDS: NICOTINE 21 MG/24 HR PATCH TD SCH (08:36)
[2016-10-08] MEDS: NS 1,000 ML IV SCH (08:36)
[2016-10-08] MEDS: CLINDAMYCIN 900 MG/DEXTROSE 50 ML IV SCH ×2 (08:37→16:08)
[2016-10-08] MEDS ORDERED: NS 1,000 ML IV ONE (10:34)
--- NOTE | 2016-10-08 10:56 | HOSPPROG ---
Hospitalist Progress Note Assessment/Plan: DIAGNOSES: -NECROTIZING FASCITIS OF R UPPER LEG, S/P EXPLORATION AND DRAINAGE 10/07 -ACUTE SEPSIS WITH ONGOING HYPOTENSION/SIRS, some metabolic acidosis last night seems resolved -CREPITUS CHEST WALL -, EARLY WITH VAGINAL BLEEDING; with falling bHCG unlikely that she has a viable -METHAMPHETAMINE USE -DEAFNESS, CONGENITAL I did discuss with the patient through the interpreters is that she has a serious bacterial infection that could be life or limb threatening and it is crucial that we continue very careful wound care and continue IV antibiotics. She did acknowledge and seemed to understand this. Seen on multidisc rounds as well today Reviewed in detail with Dr Rahman and Dr Acosta PLANS: -further fluid resuscitation acutely now and follow progress, other measures as indicated -continue current abx -wound care / wound vacc -stat portable CXR to assess chest wall creptius, rule out pneumothorax -she will need extensive counseling regarding meth and other drug use if she will engage; so far is not willing to engage in much interaction here SUBJECTIVE: Visited again with interpreters present She still has good bit of pain in her leg. She is very hungry. 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, 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 tachycardia Exam: alert, oriented as best I can tell but her engagement is still limited making assessment difficult wound VAC in place on both the medial and lateral aspect of her right thigh appears to be functioning normally skin warm dry color ok, distal capillary refill seems good resps not labored lungs clear BSs heart regular abd soft nondistended nontender, bowel sounds present limbs warm, no edema iv site ok Laboratory data: White blood cell count remains very high Did have some metabolic acidosis last night that appears resolved at this time now fairly anemic hemoglobin 9, albumin is down 1.9 Culture data: All cultures so far remain negative Objective: Vital Signs Temp Pulse Resp BP Pulse Ox 37.2 C 111 H 20 87/48 L 100 10/08/16 05:00 10/08/16 09:00 10/08/16 09:00 10/08/16 09:00 10/08/16 09:00 Microbiology 10/07/16 21:33 Gram Stain - Final Leg - Eswab 10/07/16 21:33 Gram Stain - Final Leg - Tissue Laboratory Results 10/08/16 04:55 10/08/16 04:55 10/07/16 10/08/16 10/09/16 06:59 06:59 06:59 Intake Total 8309 Output Total 1150 Balance 7159 ICD10 Worksheet Patient Problems: Problems Problem Status Onset Leukocytosis Acute Right thigh pain Acute Threatened in early Acute
--- NOTE | 2016-10-08 11:46 | PCMIDPN ---
Assessment/Plan: Assessment/Plan: * Right thigh necrotizing fasciitis status post debridement and wound VAC placement: Operative findings noted with serous fluid present with viable fashion muscle noted. Gram stain shows no organism with culture pending. Blood cultures are also no growth. Continue empiric vancomycin, Zosyn and clindamycin pending further culture data. Will review with Dr. Delatorre timing of wound VAC change. 10/08/16 11:43 Subjective: Patient seen with sign language interpreters. Patient complains of right thigh pain. Objective: Vital Signs Temp Pulse Resp BP Pulse Ox 37.2 C 111 H 20 87/48 L 100 10/08/16 05:00 10/08/16 09:00 10/08/16 09:00 10/08/16 09:00 10/08/16 09:00 Microbiology 10/07/16 21:33 Gram Stain - Final Leg - Eswab 10/07/16 21:33 Gram Stain - Final Leg - Tissue Laboratory Results 10/08/16 04:55 10/08/16 04:55 10/07/16 10/08/16 10/09/16 05:59 05:59 05:59 Intake Total 8309 Output Total 1150 Balance 7159 ESR 27 MM/HR (0-20) H 10/07/16 06:10 C-Reactive Protein 255.0 mg/L (<10.0) H 10/07/16 06:10 Vancomycin # 1 Zosyn # 1 Clindamycin # 1 Blood cultures x2 no growth Operative cultures with white blood cells present but no organism seen - Physical Exam General Appearance: alert, non-toxic EENT: No conjunctival petechiae Respiratory: lungs clear, No respiratory distress Cardiac/Chest: tachycardia, No systolic murmur Extremities: inflammation (Right thigh with wound VAC in place; no surrounding erythema but remains tender throughout thigh into inguinal region) Abdomen: non-tender, No distended Skin: No embolic lesions ICD10 Worksheet Patient Problems: Problems Problem Status Onset Leukocytosis Acute Right thigh pain Acute Threatened in early Acute
--- NOTE | 2016-10-08 13:33 | GCON ---
[f rep st] CONSULTATION PULMONARY CRITICAL CARE CONSULTATION DATE OF CONSULTATION: 10/08/2016 REASON FOR CONSULTATION: Intensive care unit evaluation and management of infectious fasciitis. HISTORY: The patient is a 31-year-old IV drug user who was admitted yesterday with right hip and th igh pain. She was tachycardic, as well as tachypneic, with a white blood cell count of almost 30,00 0. MRI showed evidence of myositis and fasciitis related to the upper right leg and hip. She was s een by Dr. Delatorre and taken to the operating room for fasciotomy. He found some abnormal fluid, but no evidence of muscle involvement. Wound vacs were placed postoperatively. She was returned to the intensive care unit in stable condition. She has had some emotional difficulties postoperatively, has been acting out, but has been clinically stable. PAST MEDICAL HISTORY: Remarkable for homelessness, IV drug use, including methamphetamine, heroin, etc. She has a history of previous subcutaneous abscesses, dental infections. She is congenitally deaf and is communicated with by signing. She came into the hospital with an intrauterine but has spontaneously aborted. PAST SURGICAL HISTORY: section. SOCIAL HISTORY: The patient is a smoker, IV drug user. She denies alcohol. She does smoke marijua na. She is apparently homeless. FAMILY HISTORY: Noncontributory. REVIEW OF SYSTEMS: Difficult to obtain: On review of chart, negative, except as mentioned above. PHYSICAL EXAMINATION: GENERAL: Reveals a woman whose eyes are closed but will occasionally open th em and respond appropriately to commands. Otherwise, she is withdrawn. She is moaning occasionally . Communication is via a signing miner assistant, whom she looks at only sometimes. VITAL SIGNS: Bloo d pressure is 118/72, heart rate 115, with sinus tachycardia on the monitor. On room air, saturatio ns are 99%. Respiratory rate is 24. HEENT: Unremarkable for lymphadenopathy or thyromegaly. She has some dried blood related to her right lip area. CHEST: Clear bilaterally. With deep breaths, excursions seemed normal. There are no abnormal sounds or crepitus related to the upper left chest. HEART: Tachycardic. A systolic murmur is present. There are no gallops. ABDOMEN: Soft, nonten michael. Bowel sounds are present. The legs and perineal area were not examined at this time. A wound VAC is in place. There is no Blackmon catheter. EXTREMITIES: Unremarkable for edema, cords, or tend erness. Pulses are intact. NEUROLOGIC: Nonfocal. DATABASE: Radiologic studies are as noted above. Chest x-ray shows clear lung thornton. The right h emidiaphragm is higher than the left. LABORATORY DATA: White blood cell count 30,000, hematocrit of 28, down from 36 on admission. Plate lets are normal. There is a shift to the left with 11% bands. Lactates have been normal, the last yesterday evening at 1.1. Basic metabolic panel shows a sodium of 136, potassium 3.8, CO2 24, BUN 4 , with a creatinine of 0.5. Glucose is 100, calcium 7.2. Bilirubin and liver function studies are normal. Albumin is 1.9. Urinalysis on admission was unremarkable. ASSESSMENT: 1. Fasciitis. This was related to the right thigh. Some necrotizing changes were found at surgery , by findings were less impressive than suggested by the MRI. Muscles and fatty tissue do not appea r to be significantly affected. Appropriate antibiotics, including vancomycin, clindamycin, and Zos yn are being given. Wound VAC is in place. Infectious Disease and Surgery are both following. 2. History of intravenous drug abuse. At some risk for withdrawal from narcotics. She is receivin g IV morphine at this time on an as-needed basis. She is also on some Ativan. 3. Acute blood loss anemia. There is no evidence of significant ongoing active bleeding. Some ooz ing is present related to her surgical incisions as expected. Hematocrit will be followed. 4. History of tobacco abuse. She is on a nicotine patch. She has no pulmonary congestion, evidenc e of chronic obstructive pulmonary disease or asthma. Pulmonary status will be followed. 5. Metabolic: No issues identified at this time. Chemistries will be followed. 6. Deep vein thrombosis prophylaxis: SCDs. Subcutaneous Lovenox will be considered. I will discu ss this with surgery. 7. Psychosocial issues. These are numerous, including her IV drug abuse, homelessness, deafness, e tc. Issues will need to be addressed throughout her hospital course. PLAN AND RECOMMENDATIONS: The patient will be kept in the intensive care unit, on IV antibiotics. Wound VAC changes will be arranged per Surgery. Infectious Disease will continue to follow her. La boratory will be monitored. Appropriate pain medications, including narcotics, will be given. Ativ an will be given for anxiety. Further plans and recommendations will be made based on her progress over the next 12-24 hours. /[id number]/MODL
[2016-10-08] MEDS: VANCOMYCIN 1.5 GM in D5W 250 ML IV SCH (19:56)
[2016-10-08] MEDS: ACETAMINOPHEN 325 MG TAB PO PRN (20:53)
--- NOTE | 2016-10-08 21:40 | SOAPPROG ---
SOAP Progress Note Assessment/Plan: Assessment: completely uncooperative 31 female with nec fasciitis/ wbc 29k/ temp 39+ very tender rt thigh needs debridement soon but unable to obtain consent and no apparent family or guardian this is a rapidly devastating situation that needs surgery quickly to prevent and limb loss/ even with surgery we may not save her Plan:to or as an emergency for debridement of nec fasciitis 10/07/16 19:24 10/07/16 22:25 POSTOP STABLE/ SURGICAL FINDINGS VERY UNDERWHELMING COMPARED TO CLINICAL COURSE AND MRI 10/08/16 21:39 overall better vital signs in urine output / still difficult to evaluate / wound VAC change Tuesday unless needed sooner by clinical indicators Objective: Vital Signs Temp Pulse Resp BP Pulse Ox 37.1 C 115 H 24 H 90/43 L 94 10/08/16 20:00 10/08/16 21:00 10/08/16 21:00 10/08/16 21:00 10/08/16 21:00 Microbiology 10/07/16 21:33 Gram Stain - Final Leg - Eswab 10/07/16 21:33 Gram Stain - Final Leg - Tissue Laboratory Results 10/08/16 04:55 10/08/16 04:55 10/07/16 10/08/16 10/09/16 05:59 05:59 05:59 Intake Total 8309 3681 Output Total 1150 1350 Balance 7170 4432 ICD10 Worksheet Patient Problems: Problems Problem Status Onset Leukocytosis Acute Right thigh pain Acute Threatened in early Acute
[2016-10-09] MEDS: CLINDAMYCIN 900 MG/DEXTROSE 50 ML IV SCH ×4 (00:04→23:45)
[2016-10-09] MEDS: NS 1,000 ML IV SCH ×2 (03:59→23:45)
[2016-10-09] MEDS: PIPERACILLIN/TAZO 4.5 GM/DEX 100 ML IV SCH ×4 (04:02→22:41)
[2016-10-09] MEDS: VANCOMYCIN 1.5 GM in D5W 250 ML IV SCH ×2 (06:02→19:37)
[2016-10-09] MEDS: ACETAMINOPHEN 325 MG TAB PO PRN ×2 (06:31→19:36)
[2016-10-09] MEDS ORDERED: NALOXONE HCL 0.4 MG/ML INJ IVP PRN ×2 (09:22→09:34)
[2016-10-09] MEDS ORDERED: morphINE PCA 30 MG/30 ML PCA IV PRN (09:34)
[2016-10-09] MEDS: NICOTINE 21 MG/24 HR PATCH TD SCH (09:56)
--- NOTE | 2016-10-09 10:05 | HOSPPROG ---
Hospitalist Progress Note Assessment/Plan: DIAGNOSES: -NECROTIZING FASCITIS OF R UPPER LEG, S/P EXPLORATION AND DRAINAGE 10/07 -ACUTE SEPSIS WITH ONGOING HYPOTENSION/SIRS -, EARLY WITH VAGINAL BLEEDING; with falling bHCG unlikely that she has a viable -METHAMPHETAMINE USE -DEAFNESS, CONGENITAL She is having less pain and looking more relaxed. She is now better oriented and cooperating well with nursing staff for her care. It appears she is stabilizing with resolution of sepsis, but remains tachycardica. Seen on multidisc rounds as well today Reviewed in detail with Milton Manzo and PLANS: -continue current abx -wound care / wound vacc -anticipate first wound vacc change in 2 days, assess potential need for furhter cleanout at that time. -she will need extensive counseling regarding meth and other drug use if she will engage; so far is not willing to engage in much interaction here SUBJECTIVE: Visited again with interpreters present pain is less today but still using a lot of narcotic and having great deal of difficulty moving leg; is able to smile today however very hungry, eating well OBJECTIVE Vitals reviewed: remains fairly tachycardic and still hypotensive at times though overall BPs sligtly better, T-max 37.9degrees Speed Belt Sander Tender, 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 tachycardia Exam: alert, oriented as best I can tell but her engagement is still limited making assessment difficult wound VAC in place on both the medial and lateral aspect of her right thigh appears to be functioning normally skin warm dry color ok, distal capillary refill seems good resps not labored lungs clear BSs heart regular abd soft nondistended nontender, bowel sounds present limbs warm, no edema iv site ok Laboratory data: White blood cell count remains very high but better bHCG down to 12 Culture data: All cultures so far remain negative Objective: Vital Signs Temp Pulse Resp BP Pulse Ox 37.1 C 93 17 92/46 L 99 10/08/16 20:00 10/09/16 08:00 10/09/16 08:00 10/09/16 08:00 10/09/16 08:00 Microbiology 10/07/16 21:33 Gram Stain - Final Leg - Eswab 10/07/16 21:33 Gram Stain - Final Leg - Tissue Laboratory Results 10/08/16 04:55 10/08/16 04:55 10/08/16 10/09/16 10/10/16 06:59 06:59 06:59 Intake Total 8309 6731 Output Total 6940 3100 Balance 7139 6251 - Time Spent With Patient Time Spent with Patient: greater than 35 minutes Time Spent with Patient: Greater than 35 minutes spent on this patients care, greater than 50% of time spent counseling, educating, and coordinating care regarding the above mentioned plan. ICD10 Worksheet Patient Problems: Problems Problem Status Onset Leukocytosis Acute Right thigh pain Acute Threatened in early Acute
[2016-10-09 10:26] LABS: ADD DIFF? YES; ADD MORPH? NO; ATYPICAL LYMPHOCYTE FLAG 0 (0-99); FRAGMENT RBC FLAG 0 (0-99); HEMATOCRIT 24.8 % (38.0-47.0); HEMOGLOBIN 8.2 g/dL (12.6-16.3); LIPEMIA HEMOLYSIS FLAG 80 (0-99); MEAN CELL HEMOGLOBIN 29.3 pg (27.9-34.1); MEAN CELL HEMOGLOBIN CONCENTR. 33.1 g/dL (32.4-36.7); MEAN CELL VOLUME 88.6 fL (81.5-99.8); MEAN PLATELET VOLUME 9.1 fL (8.7-11.7); PLATELET CLUMPS FLAG 20 (0-99); PLATELET COUNT 355 10^3/uL (150-400); RED CELL DISTRIBUTION WIDTH 13.1 % (11.5-15.2)
[2016-10-09 10:27] LABS: LEFT SHIFT FLG 130 (0-99)
[2016-10-09 10:38] LABS: ANION GAP 5 mEq/L (8-16); CALCIUM 7.3 mg/dL (8.5-10.4); CARBON DIOXIDE 27 mEq/l (22-31); CHLORIDE 107 mEq/L (97-110); CREATININE 0.6 mg/dL (0.6-1.0); GLOMERULAR FILTRATION RATE > 60; GLUCOSE 99 mg/dL (70-100); POTASSIUM 2.9 mEq/L (3.5-5.2); SODIUM 139 mEq/L (134-144)
--- NOTE | 2016-10-09 11:12 | PCMIDPN ---
Assessment/Plan: Assessment/Plan: * Right thigh necrotizing fasciitis status post debridement and wound VAC placement: Operative findings noted with serous fluid present with viable fashion muscle noted. Operative and blood cultures both remain no growth to date. Clinical exam is improved. Plans for wound VAC change likely with sedation on Tuesday to reassess soft tissues. Follow labial exam over time - suspect this is likely secondary edema rather than being associated with skin and soft tissue infection. Continue empiric vancomycin, Zosyn, and clindamycin. 10/09/16 11:08 10/09/16 11:13 Subjective: Patient with less right thigh pain. Feels like labial pain also less. Patient seen with sign language interpreters. Objective: Vital Signs Temp Pulse Resp BP Pulse Ox 37.1 C 102 H 18 92/46 L 95 10/08/16 20:00 10/09/16 10:00 10/09/16 10:00 10/09/16 10:00 10/09/16 10:00 Microbiology 10/07/16 21:33 Gram Stain - Final Leg - Eswab 10/07/16 21:33 Gram Stain - Final Leg - Tissue Laboratory Results 10/09/16 10:14 10/09/16 10:14 10/08/16 10/09/16 10/10/16 05:59 05:59 05:59 Intake Total 8309 6731 Output Total 1150 3100 Balance 7159 3631 ESR 27 MM/HR (0-20) H 10/07/16 06:10 C-Reactive Protein 255.0 mg/L (<10.0) H 10/07/16 06:10 Vancomycin # 2 Zosyn # 2 Clindamycin # 2 Blood cultures x2 no growth Operative cultures no growth to date Laboratory Tests 10/08/16 17:10 Vancomycin Trough 7.1 - Physical Exam General Appearance: alert, no apparent distress EENT: No scleral icterus Cardiac/Chest: regular rate, rhythm, No systolic murmur Extremities: inflammation (Right thigh with wound VAC in place; less tender to palpation without erythema present; labial edema present with some hyperemia) Abdomen: non-tender, No distended ICD10 Worksheet Patient Problems: Problems Problem Status Onset Leukocytosis Acute Right thigh pain Acute Threatened in early Acute
[2016-10-09 11:23] LABS: PLATELET ESTIMATE ADEQUATE (ADEQ); POLYCHROMASIA 1+
[2016-10-09] MEDS: KETOROLAC 15 MG/1 ML SDV IVP SCH ×3 (11:32→23:46)
[2016-10-09] MEDS: HYDROCODONE/APAP 5/325 TAB PO PRN ×3 (11:33→21:05)
[2016-10-09] MEDS: ENOXAPARIN 40 MG/0.4 ML SYR SC SCH (11:38)
--- NOTE | 2016-10-09 13:10 | SOAPPROG ---
SOAP Progress Note Assessment/Plan: Assessment: 31yo F s/p R thigh fasciotomy for necrotizing fasciitis Pain control - transition from IV to PO, add toradol (max 3 days) Wound vac to suction - will change tuesday Cutures NGTD Thigh soft and relatively nontender Continue IV antibiotics Appreciative of sign language interpreters Lovenox Seen c Dr. Rose and Dr. Acosta S: less pain in thigh. also less pain in right labia. light gives her headaches O: laying in bed, comfortable, NAD, design architect is present Clear to auscultation bilaterally anteriorly, no increased work of breathing Regular rate and rhythm Bowel sounds present, soft nondistended nontender R labia edema R thigh min tender to palpation, softer Wound vac to suction. no surrounding erythema Objective: Vital Signs Temp Pulse Resp BP Pulse Ox 37.1 C 93 15 96/54 L 97 10/08/16 20:00 10/09/16 12:00 10/09/16 12:00 10/09/16 12:00 10/09/16 12:00 Microbiology 10/07/16 21:33 Gram Stain - Final Leg - Eswab 10/07/16 21:33 Gram Stain - Final Leg - Tissue Laboratory Results 10/09/16 10:14 10/09/16 10:14 10/08/16 10/09/16 10/10/16 05:59 05:59 05:59 Intake Total 8309 6731 Output Total 2759 4305 Balance 8227 9472 ICD10 Worksheet Patient Problems: Problems Problem Status Onset Leukocytosis Acute Right thigh pain Acute Threatened in early Acute
--- NOTE | 2016-10-09 13:53 | PDINTPN ---
Senior Data Integration Developer Progress Note Assessment/Plan: Assessment: Necrotizing fasciitis RLU 10/07. Status post debridement with wound VAC placement. History IV drug abuse, substance abuse Anemia: Chronic plus acute Hypokalemia: On replacement protocols Spontaneous : Beta HCG levels significantly dropping. Ectopic seems less likely. Per mine safety manager History of tobacco use: No evidence of pulmonary problems Nutrition: Eating DVT prophylaxis: On enoxaparin Plan: Continue care in the ICU. Continue antibiotics, ID following. Continue adequate pain control. Follow laboratory, CBC. Possible ambulation today. Back to the OR Tuesday by report for wound VAC change in further debridement if needed. Subjective: Has pain related to her incisions Objective: Vital Signs Temp Pulse Resp BP Pulse Ox 37.1 C 93 15 96/54 L 97 10/08/16 20:00 10/09/16 12:00 10/09/16 12:00 10/09/16 12:00 10/09/16 12:00 Microbiology 10/07/16 21:33 Gram Stain - Final Leg - Eswab 10/07/16 21:33 Gram Stain - Final Leg - Tissue Laboratory Results 10/09/16 10:14 10/09/16 10:14 10/08/16 10/09/16 10/10/16 05:59 05:59 05:59 Intake Total 8309 6731 Output Total 1150 3100 Balance 7159 3631 Physical Exam - Physical Exam General Appearance: alert, thin, other (Withdrawn at times) EENT: other Neck: normal inspection Respiratory: lungs clear Cardiac/Chest: regular rate, rhythm Abdomen: non-tender, soft, No normal bowel sounds (Present, somewhat diminished) Pelvic Exam: other (Blackmon catheter in place: Input greater than output last 2 days) Skin: warm/dry, pallor Extremities: other (Wound VAC in place. Examination per surgery) Neuro/Psych: no motor/sensory deficits, speech abnormalities (Deaf - signs), No normal mood/affect, No cognition abnormalities (Seems to be at baseline) ICD10 Worksheet Patient Problems: Problems Problem Status Onset Right thigh pain Acute Leukocytosis Acute Threatened in early Acute
[2016-10-09] MEDS ORDERED: PROTOCOL POTASSIUM 1 DOSE MISC PRN (20:33)
[2016-10-09] MEDS: ONDANSETRON 4 MG/2 ML VIAL IVP PRN (21:10)
[2016-10-09] MEDS: LORazepam 2 MG/ML INJ IVP PRN (21:10)
[2016-10-09] MEDS: POTASSIUM Cl (KCl) 50 ML IV SCH ×2 (21:42→22:42)
[2016-10-10] MEDS: LORazepam 2 MG/ML INJ IVP PRN ×2 (03:31→18:12)
[2016-10-10 03:43] LABS: % IMMATURE GRANULYOCYTES 1.5 % (0.0-1.1); ABSOLUTE IMMATURE GRANULOCYTES 0.26 10^3/uL (0.00-0.10); ADD DIFF? NO; ADD MORPH? NO; ADD SCAN? NO; ATYPICAL LYMPHOCYTE FLAG 0 (0-99); FRAGMENT RBC FLAG 0 (0-99); HEMATOCRIT 23.8 % (38.0-47.0); HEMOGLOBIN 7.7 g/dL (12.6-16.3); LEFT SHIFT FLG 50 (0-99); LIPEMIA HEMOLYSIS FLAG 80 (0-99); MEAN CELL HEMOGLOBIN 29.2 pg (27.9-34.1); MEAN CELL HEMOGLOBIN CONCENTR. 32.4 g/dL (32.4-36.7); MEAN CELL VOLUME 90.2 fL (81.5-99.8); MEAN PLATELET VOLUME 9.3 fL (8.7-11.7); PLATELET CLUMPS FLAG 10 (0-99); PLATELET COUNT 370 10^3/uL (150-400); RED BLOOD CELL COUNT 2.64 10^6/uL (4.18-5.33); RED CELL DISTRIBUTION WIDTH 13.2 % (11.5-15.2)
[2016-10-10] MEDS: PIPERACILLIN/TAZO 4.5 GM/DEX 100 ML IV SCH ×4 (04:06→23:13)
[2016-10-10 04:16] LABS: ANION GAP 4 mEq/L (8-16); CARBON DIOXIDE 25 mEq/l (22-31); CHLORIDE 109 mEq/L (97-110); CREATININE 0.9 mg/dL (0.6-1.0); GLOMERULAR FILTRATION RATE > 60; GLUCOSE 76 mg/dL (70-100); POTASSIUM 3.3 mEq/L (3.5-5.2); SODIUM 138 mEq/L (134-144)
[2016-10-10 04:17] LABS: CALCIUM 7.4 mg/dL (8.5-10.4)
[2016-10-10] MEDS: POTASSIUM Cl (KCl) 50 ML IV SCH ×3 (04:41→05:59)
[2016-10-10] MEDS: KETOROLAC 15 MG/1 ML SDV IVP SCH ×3 (05:03→17:16)
[2016-10-10] MEDS: VANCOMYCIN 1.5 GM in D5W 250 ML IV SCH ×2 (06:32→18:14)
[2016-10-10] MEDS: CLINDAMYCIN 900 MG/DEXTROSE 50 ML IV SCH ×2 (08:37→15:15)
[2016-10-10] MEDS: ENOXAPARIN 40 MG/0.4 ML SYR SC SCH (09:23)
[2016-10-10] MEDS: NICOTINE 21 MG/24 HR PATCH TD SCH (09:23)
--- NOTE | 2016-10-10 10:18 | HOSPPROG ---
Hospitalist Progress Note Assessment/Plan: DIAGNOSES: -NECROTIZING FASCITIS OF R UPPER LEG, S/P EXPLORATION AND DRAINAGE 10/07 -ACUTE SEPSIS WITH ONGOING HYPOTENSION/SIRS -, EARLY WITH VAGINAL BLEEDING; with falling bHCG unlikely that she has a viable , I suspect she has aborted spontaneously -METHAMPHETAMINE USE -DEAFNESS, CONGENITAL -HYPOKALEMIA -ANEMIA LIKELY DUE TO HER ACUTE INFECTION AND SOME EXPECTED SURGICAL BLOOD LOSS overall she appears stable. Cultures remain negative so will continue empiric bacterial coverage with antibiotics I examined the patient together today with doctors Josiah and Seen on multidisc rounds as well today Reviewed in detail with Dr Rahman, Dr. Acosta, Katlyn Goldstein PLANS: -continue current abx -wound care / wound vacc -anticipate first wound vacc change tomorrow, assess potential need for further cleanout at that time. due to her levels of pain and her emotional issues this will likely need to be done with sedation we have discussed this with surgery team -she will need extensive counseling regarding meth and other drug use if she will engage; so far is not willing to engage in much interaction here SUBJECTIVE: has been sleeping all morning but is easily aroused, and participates in our interview and examination eating well no sob states pain is better today than yesterday, no chills old OBJECTIVE Vitals reviewed: pulse finally slowed to low 90s, BPs remains low (? if her baseline is somewhat low); fevers resolved Business Intelligence Consultant, 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 Exam: alert oriented, not as willing to engage in interactions today wound VAC in place on both the medial and lateral aspect of her right thigh appears to be functioning normally, no visible cellulitis, drainage of fluid, or necrosis and no palpable fluctuance skin warm dry color ok, distal capillary refill seems good resps not labored lungs clear BSs heart regular abd soft nondistended nontender, bowel sounds present limbs warm, no edema small amount of vaginal bleeding is again noted on examination; there is some anemia of the labia but there is no evidence of cellulitis of the genital structures iv site ok Laboratory data: White blood cell count remains very high but better Culture data: All cultures so far remain negative Objective: Vital Signs Temp Pulse Resp BP Pulse Ox 36.7 C 90 16 95/61 L 94 10/10/16 08:00 10/10/16 10:10/10/16 10:10/10/16 10:10/10/16 10:00 Microbiology 10/07/16 21:33 Gram Stain - Final Leg - Eswab 10/07/16 21:33 Gram Stain - Final Leg - Tissue Laboratory Results 10/10/16 03:35 10/10/16 03:35 10/09/16 10/10/16 10/11/16 06:59 06:59 06:59 Intake Total 8679 4681 Output Total 3107 1999 Balance 7130 998 ICD10 Worksheet Patient Problems: Problems Problem Status Onset Leukocytosis Acute Right thigh pain Acute Threatened in early Acute
--- NOTE | 2016-10-10 12:25 | SOAPPROG ---
SOAP Progress Note Assessment/Plan: Assessment: 31yo F s/p R thigh fasciotomy for necrotizing fasciitis Pain control -PO, toradol (day 2/3) Wound vac to suction - will change tuesday in OR with sedation in case needs further debridement. NPO after midnight Cutures NGTD Thigh soft and relatively nontender Continue IV antibiotics Appreciative of sign language interpreters Lovenox Discussed c Dr. Acosta and Dr. Wolf S: pain controlled in thigh - able to move better than yesterday with less pain. also less pain in right labia. she would like to sleep in and not be bothered in the morning. O: laying in bed, comfortable, NAD, web design intern is present no increased work of breathing R labia edema - stable. min vaginal bleeding on sheets R thigh nontender to palpation, soft Wound vac to suction. no surrounding erythema Objective: Vital Signs Temp Pulse Resp BP Pulse Ox 36.7 C 90 16 95/61 L 94 10/10/16 08:00 10/10/16 10:00 10/10/16 10:00 10/10/16 10:00 10/10/16 10:00 Microbiology 10/07/16 21:33 Gram Stain - Final Leg - Eswab 10/07/16 21:33 Gram Stain - Final Leg - Tissue Laboratory Results 10/10/16 03:35 10/10/16 03:35 10/09/16 10/10/16 10/11/16 05:59 05:59 05:59 Intake Total 0331 6863 Output Total 1859 1999 Balance 1668 837 ICD10 Worksheet Patient Problems: Problems Problem Status Onset Leukocytosis Acute Right thigh pain Acute Threatened in early Acute
--- NOTE | 2016-10-10 14:10 | PCMIDPN ---
Assessment/Plan: Assessment/Plan: * Right thigh necrotizing fasciitis status post debridement and wound VAC placement: Operative findings noted with serous fluid present with viable fashion muscle noted. Operative and blood cultures both remain no growth to date. Somewhat unusual that cultures are all negative in this setting. Continued clinical improvement post debridement. Continue vancomycin, Zosyn and clindamycin with possible narrowing of antibiotic therapy tomorrow after wound VAC change and repeat assessment of wound bed. 10/10/16 14:08 Subjective: Patient seen with ICU team and sign language interpreters on rounds. Objective: Vital Signs Temp Pulse Resp BP Pulse Ox 36.6 C 93 23 H 98/66 L 95 10/10/16 12:00 10/10/16 12:00 10/10/16 12:00 10/10/16 12:00 10/10/16 12:00 Microbiology 10/07/16 21:33 Gram Stain - Final Leg - Eswab 10/07/16 21:33 Gram Stain - Final Leg - Tissue Laboratory Results 10/10/16 03:35 10/10/16 03:35 10/09/16 10/10/16 10/11/16 05:59 05:59 05:59 Intake Total 6731 2797 Output Total 3100 2000 Balance 3631 797 ESR 27 MM/HR (0-20) H 10/07/16 06:10 C-Reactive Protein 255.0 mg/L (<10.0) H 10/07/16 06:10 Vancomycin # 3 Clindamycin # 3 Zosyn # 3 Blood cultures x2 no growth Operative cultures no growth - Physical Exam General Appearance: alert, no apparent distress, non-toxic EENT: No scleral icterus Extremities: inflammation (Wound VAC without surrounding erythema or induration ; tenderness significantly decreased) Abdomen: non-tender, No distended Skin: other (Right labia remains edematous but no erythema or necrosis present) ICD10 Worksheet Patient Problems: Problems Problem Status Onset Leukocytosis Acute Right thigh pain Acute Threatened in early Acute
--- NOTE | 2016-10-10 14:38 | PDINTPN ---
Business Consultant Progress Note Assessment/Plan: Assessment: Necrotizing fasciitis RLU 10/07. Status post debridement with wound VAC placement. For re-evaluation tomorrow in the operating room. History IV drug abuse, substance abuse Anemia: Chronic plus acute Hypokalemia: On replacement protocols Spontaneous : Beta HCG levels significantly dropping. Ectopic seems less likely. Per press washer History of tobacco use: No evidence of pulmonary problems Nutrition: Eating DVT prophylaxis: On enoxaparin Plan: Continue care in the ICU. Continue antibiotics, ID following. Continue adequate pain control. Follow laboratory, CBC. Stand, ambulate of possible today. Back to the OR tomorrow for wound VAC change in further debridement if needed. Subjective: Overall feels somewhat better. Not as withdrawn. Still has pain related to her fasciitis but less than yesterday. Eating. Denies shortness of breath Objective: Vital Signs Temp Pulse Resp BP Pulse Ox 36.6 C 93 23 H 98/66 L 95 10/10/16 12:00 10/10/16 12:00 10/10/16 12:00 10/10/16 12:00 10/10/16 12:00 Microbiology 10/07/16 21:33 Gram Stain - Final Leg - Eswab 10/07/16 21:33 Gram Stain - Final Leg - Tissue Laboratory Results 10/10/16 03:35 10/10/16 03:35 10/09/16 10/10/16 10/11/16 05:59 05:59 05:59 Intake Total 6731 2797 Output Total 3100 2000 Balance 3631 797 Laboratory Tests 10/10/16 03:35 Calcium 7.4 L Phosphorus 3.4 Magnesium 2.0 Creatine Kinase < 20 Physical Exam - Physical Exam General Appearance: alert, mild distress, thin EENT: other (On room air) Neck: normal inspection Respiratory: lungs clear, normal breath sounds Cardiac/Chest: regular rate, rhythm Abdomen: normal bowel sounds, non-tender, soft Pelvic Exam: other (Wound VAC in place. Examined patient with Dr. Acosta. Please see his notes regarding labia etc. Thigh reportedly softer.) Skin: warm/dry, pallor Extremities: No pedal edema Neuro/Psych: no motor/sensory deficits, No cognition abnormalities (deaf/signs) ICD10 Worksheet Patient Problems: Problems Problem Status Onset Right thigh pain Acute Leukocytosis Acute Threatened in early Acute
[2016-10-10] MEDS: HYDROCODONE/APAP 5/325 TAB PO PRN ×2 (15:22→21:16)
[2016-10-10] MEDS: ONDANSETRON 4 MG/2 ML VIAL IVP PRN (15:27)
[2016-10-10 17:48] LABS: POTASSIUM 3.4 mEq/L (3.5-5.2)
[2016-10-10] MEDS: ZOLPIDEM TARTRATE 5 MG TAB PO PRN (21:16)
[2016-10-10] MEDS: NS 1,000 ML IV SCH (21:45)
[2016-10-11] MEDS: CLINDAMYCIN 900 MG/DEXTROSE 50 ML IV SCH ×3 (00:13→18:12)
[2016-10-11] MEDS: POTASSIUM Cl (KCl) 50 ML IV SCH ×3 (00:22→03:48)
[2016-10-11] MEDS: KETOROLAC 15 MG/1 ML SDV IVP SCH ×5 (00:22→22:59)
[2016-10-11 05:24] LABS: ADD DIFF? YES; ADD MORPH? NO; ADD SCAN? NO; ATYPICAL LYMPHOCYTE FLAG 40 (0-99); FRAGMENT RBC FLAG 0 (0-99); HEMATOCRIT 27.5 % (38.0-47.0); HEMOGLOBIN 8.9 g/dL (12.6-16.3); LEFT SHIFT FLG 60 (0-99); LIPEMIA HEMOLYSIS FLAG 80 (0-99); MEAN CELL HEMOGLOBIN 29.4 pg (27.9-34.1); MEAN CELL HEMOGLOBIN CONCENTR. 32.4 g/dL (32.4-36.7); MEAN CELL VOLUME 90.8 fL (81.5-99.8); MEAN PLATELET VOLUME 9.2 fL (8.7-11.7); PLATELET CLUMPS FLAG 10 (0-99); PLATELET COUNT 465 10^3/uL (150-400); RED BLOOD CELL COUNT 3.03 10^6/uL (4.18-5.33); RED CELL DISTRIBUTION WIDTH 13.3 % (11.5-15.2)
[2016-10-11 05:42] LABS: POTASSIUM 4.1 mEq/L (3.5-5.2)
[2016-10-11 05:49] LABS: PLATELET ESTIMATE ADEQUATE (ADEQ)
[2016-10-11 05:53] LABS: % SATURATION 9 % (20-55); TOTAL IRON BINDING CAPACITY 185 ug/dL (260-490)
[2016-10-11] MEDS: PIPERACILLIN/TAZO 4.5 GM/DEX 100 ML IV SCH ×4 (06:19→22:59)
[2016-10-11] MEDS: VANCOMYCIN 1.5 GM in D5W 250 ML IV SCH ×2 (08:05→18:39)
[2016-10-11] MEDS: NICOTINE 21 MG/24 HR PATCH TD SCH (08:28)
[2016-10-11] MEDS: ENOXAPARIN 40 MG/0.4 ML SYR SC SCH (08:28)
[2016-10-11] MEDS: NS 1,000 ML IV SCH ×2 (10:04→21:57)
--- NOTE | 2016-10-11 12:37 | HOSPPROG ---
Hospitalist Progress Note Assessment/Plan: DIAGNOSES: -NECROTIZING FASCITIS OF R UPPER LEG, S/P EXPLORATION AND DRAINAGE 10/07 -ACUTE SEPSIS WITH ONGOING HYPOTENSION/SIRS -, EARLY WITH VAGINAL BLEEDING; with falling bHCG unlikely that she has a viable , I suspect she has aborted spontaneously -METHAMPHETAMINE USE -DEAFNESS, CONGENITAL -HYPOKALEMIA -ANEMIA LIKELY DUE TO HER ACUTE INFECTION AND SOME EXPECTED SURGICAL BLOOD LOSS Overall she appears stable without any signs of visible necrosis or abscess formation Her I believe is spontaneously aborting, no sign of complication Seen on multidisc rounds as well today Reviewed in detail with Dr Martines PLANS: -continue current abx -she will go back to the OR today for reexploration of her wounds and change of her wound vacc -she will need extensive counseling regarding meth and other drug use if she will engage; so far is not willing to engage in much interaction here SUBJECTIVE: has been sleeping all morning but is easily aroused, and participates (still very reluctantly in our interview and examination) eating well no sob states pain is mostly resolved OBJECTIVE Vitals reviewed: pulse finally slowed to low 90s, BPs remains low (? 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 Exam: alert oriented, not very willing to engage in interactions today wound VAC in place appears to be functioning normally/no visible cellulitis, drainage of fluid, or necrosis and no palpable fluctuance skin warm dry color ok, distal capillary refill seems good resps not labored lungs clear BSs heart regular won't allow further exam now iv site ok Laboratory data: White blood cell count higher today Bhcg is now down to 5 Culture data: All cultures so far remain negative Objective: Vital Signs Temp Pulse Resp BP Pulse Ox 37.0 C 88 30 H 101/65 92 10/11/16 08:00 10/11/16 10:00 10/11/16 10:00 10/11/16 10:00 10/11/16 10:00 Microbiology 10/07/16 21:33 Gram Stain - Final Leg - Eswab 10/07/16 21:33 Gram Stain - Final Leg - Tissue Laboratory Results 10/11/16 05:00 10/11/16 05:00 10/10/16 10/11/16 10/12/16 06:59 06:59 06:59 Intake Total 5713 4192 Output Total 19990 Balance 797 2557 - Time Spent With Patient Time Spent with Patient: greater than 35 minutes Time Spent with Patient: Greater than 35 minutes spent on this patients care, greater than 50% of time spent counseling, educating, and coordinating care regarding the above mentioned plan. ICD10 Worksheet Patient Problems: Problems Problem Status Onset Leukocytosis Acute Right thigh pain Acute Threatened in early Acute
--- NOTE | 2016-10-11 14:54 | PCMIDPN ---
Assessment/Plan: Assessment: R thigh necrotizing fasciitis -- no growth from operative cultures yet. However 1 of 2 sets of blood cultures turned positive today for MRSA. Certainly reasonable as a pathogen in this circumstance with IVDU as a risk factor. A bit odd to have it grow so late in incubation and not to see it (yet ) from the wound itself, but at this point we must regard it as at least a part of the etiology for this patient. So we will continue the IV Vancomycin ( putatively sensitive) and clindamycin (may be sensitive) - and also will continue the Zosyn as there may still be a polymicrobial aspect to this case. She is a challenging patient to communicate with - this is beyond the ASL interpretation barriers - her behaviors to standard follow up visits and questions remains petulant and uncooperative. Plan: 1. Continue all the antibiotics in the current regimen. 2. Continue to follow the initial blood cultures, the MRSA sensitivity panel and the operative cultures. 3. Follow wound appearance as best we can with patient's cooperation. Subjective: Patient is awaiting surgery this afternoon - standard return to OR in the situation of fasciitis findings. She is beyond angry that she is NPO for general anaesthesia risks and is uncooperative with questions or examination. Flails her arms angrily and throws (small, harmless) things such as moistening sponges in frustration. Communication is allowed by the presence of two ASL translators - standard team format. She refuses any questions or examination and will only be satisfied with being allowed oral consumption of liquids or immediate OR procedure. Objective: Vancomycin #4 Clindamycin #4 Zosyn #4 Vital Signs Temp Pulse Resp BP Pulse Ox 37.0 C 96 20 110/65 99 10/11/16 08:00 10/11/16 14:00 10/11/16 14:00 10/11/16 14:00 10/11/16 14:00 Microbiology 10/07/16 21:33 Gram Stain - Final Leg - Eswab 10/07/16 21:33 Gram Stain - Final Leg - Tissue Laboratory Results 10/11/16 05:00 10/11/16 05:00 10/10/16 10/11/16 10/12/16 05:59 05:59 05:59 Intake Total 0769 4197 Output Total 1999 1660 Balance 797 2537 ESR 27 MM/HR (0-20) H 10/07/16 06:10 C-Reactive Protein 255.0 mg/L (<10.0) H 10/07/16 06:10 - Physical Exam General Appearance: WD/WN, alert, no apparent distress, non-toxic, other (angry , frustrated) Neuro/Psych: alert, oriented x 3, No normal mood/affect ICD10 Worksheet Patient Problems: Problems Problem Status Onset Leukocytosis Acute Right thigh pain Acute Threatened in early Acute
[2016-10-11] MEDS ORDERED: BUPIVACAINE/EPI 0.5% 30 ML SDV ONE (14:55)
[2016-10-11] MEDS ORDERED: BUPIVACAINE 0.5% 30 ML SDV ONE (15:03)
[2016-10-11] MEDS ORDERED: fentaNYL 100 MCG/2 ML INJ ONE (15:20)
[2016-10-11] MEDS ORDERED: PROPOFOL/EMULSION 500 MG/50 ML BOTTLE IV ONE (15:21)
[2016-10-11] MEDS ORDERED: ONDANSETRON 4 MG/2 ML VIAL ONE (15:21)
[2016-10-11] MEDS ORDERED: DEXAMETHASONE 4 MG/ML VIAL ONE (15:21)
[2016-10-11] MEDS ORDERED: LIDOCAINE 2% JELLY 5 ML TUBE ONE (15:22)
[2016-10-11] MEDS ORDERED: LIDOCAINE 2% 100 MG/5 ML SYR ONE (15:22)
--- NOTE | 2016-10-11 16:37 | POSTOPPROG ---
Post Op Note Date of Operation: 10/11/16 Surgeon: Barrett Matthew Matrix Bath Attendant: Lisa Soto Anesthesiologist: Dangelo Shaw Anesthesia: GET(General Endotracheal) Pre-op Diagnosis: necrotizing fasciitis Post-op Diagnosis: same, open medial and lateral R leg wounds Procedure: partial wound closure and wound vac placement x 2 Findings: healthy muscle and fat tissue, no necrosis or gross infection, +edema Inf/Abcess present in the surg proc area at time of surgery?: Yes Depth: Deep Incisional (Fascial) EBL: Minimal Complications: none Drains: Wound Vac
--- NOTE | 2016-10-11 18:03 | GOP ---
[f rep st] OPERATIVE REPORT DATE OF OPERATION: 10/11/2016 SURGEON: Barrett Matthew MD LEADING FIREFIGHTER: Lisa Soto, LIBRA ANESTHESIA: General endotracheal per Dr. Shaw. PREOPERATIVE DIAGNOSIS: Necrotizing fasciitis of the right lower leg. POSTOPERATIVE DIAGNOSIS: Necrotizing fasciitis of the right lower leg. PROCEDURE PERFORMED: Washout with partial closure and wound VAC placement x2. Initial wound measuring 15 cm. Second wound measuring 25 cm. FINDINGS: The muscle looked healthy. I identified no purulent tissue or necrosis. Wound edges were partially reapproximated, both superiorly and inferiorly, for both wounds VAC was placed to both. DESCRIPTION OF PROCEDURE: The patient was greeted in the ICU with the assistance of an bearing inspector. Consent was signed. She was then brought back to the operative suite and placed on the OR table in the supine position. After all anesthesia machines were on and functioning, [employer] time-out was performed. Antibiotics were given on-call to the operating room. After successful induction, the wound VAC was removed, and the patient's right leg was prepped and draped in typical sterile fashion. I turned my attention first toward the lateral site, which measured approximately 15 cm in greatest dimension and extended down to the muscle. The muscle appeared viable. There was minimal fat debrided. I irrigated the area with approximately 1500 cc of sterile saline with bacitracin. After this was done, I dried the area and achieved hemostasis. I then closed the superior and inferior edges somewhat, leaving approximately 8 cm open in the midline, through which I packed 1 small black sponge. After this was done, I turned my attention toward the medial thigh. Again, saw no necrotic muscle; minimal necrotic fat which was debrided sharply. After this was done, I irrigated with the remainder of a 3 L bag of the bacitracin saline solution. After this was done, hemostasis was achieved with gentle pressure, and again I reapproximated the superior and inferior skin edges with interrupted nylon sutures. In the same fashion, a black sponge was trimmed appropriately and placed in the wound bed. The wounds were then tracked together with all the skin appropriately protected and attached to a wound VAC at 125 mm suction, which was well tolerated without any apparent leaks. The patient was then extubated in the operative suite and taken to the PACU in satisfactory condition. COUNTS: All counts were reported as correct x2. /[id number]/MODL MTDD
[2016-10-11] MEDS ORDERED: BENZONATATE 100 MG CAP PO PRN (22:39)
[2016-10-12] MEDS: CLINDAMYCIN 900 MG/DEXTROSE 50 ML IV SCH ×4 (00:25→23:46)
[2016-10-12] MEDS: HYDROCODONE/APAP 5/325 TAB PO PRN ×4 (00:29→22:20)
[2016-10-12] MEDS: LORazepam 2 MG/ML INJ IVP PRN ×6 (01:26→22:20)
[2016-10-12] MEDS ORDERED: oxyCODONE IR 5 MG TAB PO ONE (01:34)
[2016-10-12 06:11] LABS: ADD DIFF? YES; ADD MORPH? NO; ADD SCAN? NO; ATYPICAL LYMPHOCYTE FLAG 30 (0-99); FRAGMENT RBC FLAG 0 (0-99); HEMATOCRIT 26.2 % (38.0-47.0); HEMOGLOBIN 8.5 g/dL (12.6-16.3); LEFT SHIFT FLG 50 (0-99); LIPEMIA HEMOLYSIS FLAG 80 (0-99); MEAN CELL HEMOGLOBIN 29.1 pg (27.9-34.1); MEAN CELL HEMOGLOBIN CONCENTR. 32.4 g/dL (32.4-36.7); MEAN CELL VOLUME 89.7 fL (81.5-99.8); MEAN PLATELET VOLUME 9.1 fL (8.7-11.7); PLATELET CLUMPS FLAG 10 (0-99); PLATELET COUNT 431 10^3/uL (150-400); RED BLOOD CELL COUNT 2.92 10^6/uL (4.18-5.33); RED CELL DISTRIBUTION WIDTH 13.3 % (11.5-15.2)
[2016-10-12] MEDS: PIPERACILLIN/TAZO 4.5 GM/DEX 100 ML IV SCH (06:11)
[2016-10-12] MEDS: KETOROLAC 15 MG/1 ML SDV IVP SCH (06:11)
[2016-10-12] MEDS: VANCOMYCIN 1.5 GM in D5W 250 ML IV SCH (06:11)
[2016-10-12 06:38] LABS: ANION GAP 4 mEq/L (8-16); CALCIUM 7.1 mg/dL (8.5-10.4); CARBON DIOXIDE 23 mEq/l (22-31); CHLORIDE 110 mEq/L (97-110); CREATININE 1.6 mg/dL (0.6-1.0); GLOMERULAR FILTRATION RATE 38; GLUCOSE 117 mg/dL (70-100); SODIUM 137 mEq/L (134-144)
[2016-10-12 06:39] LABS: HYPOCHROMIA 1+; PLATELET ESTIMATE ADEQUATE (ADEQ)
[2016-10-12 06:40] LABS: POLYCHROMASIA 1+
[2016-10-12] MEDS: NICOTINE 21 MG/24 HR PATCH TD SCH (09:48)
[2016-10-12] MEDS: ENOXAPARIN 40 MG/0.4 ML SYR SC SCH (09:48)
--- NOTE | 2016-10-12 09:54 | PCMIDPN ---
Assessment/Plan: Assessment/Plan: 1. RLE necrotizing fascitis: - s/p I & D x 2. spoke with surgery today regarding findings. -Blood cx now with one bottle postiive for MRSa. Will place in contact isolation -Leg cx now showing Staph lugdenesiss. -Creatinine up today to 1.6. Will dose reduce zosyn. Change vanco to daily tentatively. She already received dose this Am. no further vanco for today. Discussed and coordinated care with pharmacy and Rn. Will check random level in Am. -recheck labs in Am. -I have ordered f/u blood cx for today. -For wound vac change tomorrow. -Continue vanco, zosyn, clinda for now while waiting for cx to further mature. Then will consider some tailoring of antibiotics -LIkely d/c of clinda tomorrow as it will be D#6 -care coordinated with Rn, surgery, pharmacy team. Meds clinda 10/07/16 vanco zosyn. Subjective: Remains in SDU. agitated when woken up. Speaking to patient with help of sign language translators. She c/o of pain. doens't want to be bothered at present. RN present, and surgery as well. Objective: Vital Signs Temp Pulse Resp BP Pulse Ox 36.8 C 92 18 103/81 H 100 10/12/16 08:00 10/12/16 08:00 10/12/16 08:00 10/12/16 08:00 10/12/16 08:00 Microbiology 10/07/16 21:33 Gram Stain - Final Leg - Eswab 10/07/16 21:33 Gram Stain - Final Leg - Tissue Laboratory Results 10/12/16 06:00 10/12/16 06:00 10/11/16 10/12/16 10/13/16 05:59 05:59 05:59 Intake Total 4197 4381 Output Total 1660 1675 Balance 2537 2706 ESR 27 MM/HR (0-20) H 10/07/16 06:10 C-Reactive Protein 255.0 mg/L (<10.0) H 10/07/16 06:10 - Physical Exam General Appearance: other (agitated) Respiratory: lungs clear Cardiac/Chest: regular rate, rhythm Extremities: other (refused exam) Abdomen: non-tender, soft Skin: other (refused exam) ICD10 Worksheet Patient Problems: Problems Problem Status Onset Leukocytosis Acute Right thigh pain Acute Threatened in early Acute
--- NOTE | 2016-10-12 10:03 | SOAPPROG ---
SOAP Progress Note Assessment/Plan: Assessment/Plan: 31 Y deaf, mute F hx IV drug use, s/p I&D of R medial and lateral thigh necrotizing fasciitis, s/p partial wound closure and wound vac replacement. Seen and examined with Dr. Donahue, nursing, behavior health nurse and interpreters. Plan for wound vac change tomorrow, OR vs. bedside. Patient initially saying she wants to do a bedside change but she will not communicate long enough to understand what that entails. Will try to return later in the day to discuss plans. S: Patient not cooperative this morning. Wants to be left alone and finds us to be disrespectful. Very agitated. Closes eyes and refuses to communicate. O: alert, sleepy, irritated. Refusing remainder of exam. Urine in [place] clear and light yellow, vac canister contents serosanguinous. Wounds viewed directly in surgery yesterday--wounds grossly clean and tissue viable. muscle, tendon, subcutaneous fat all exposed. +edema. No necrosis. Wounds irrigated and partially closed proximally and distally and wound vac replaced. 10/12/16 09:56 Objective: Vital Signs Temp Pulse Resp BP Pulse Ox 36.8 C 92 18 103/81 H 100 10/12/16 08:00 10/12/16 08:00 10/12/16 08:00 10/12/16 08:00 10/12/16 08:00 Microbiology 10/07/16 21:33 Gram Stain - Final Leg - Eswab 10/07/16 21:33 Gram Stain - Final Leg - Tissue Laboratory Results 10/12/16 06:00 10/12/16 06:00 10/11/16 10/12/16 10/13/16 05:59 05:59 05:59 Intake Total 9828 9355 Output Total 2630 8795 Balance 6316 0580 ICD10 Worksheet Patient Problems: Problems Problem Status Onset Leukocytosis Acute Right thigh pain Acute Threatened in early Acute
--- NOTE | 2016-10-12 11:01 | HOSPPROG ---
Hospitalist Progress Note Assessment/Plan: DIAGNOSES: -NECROTIZING FASCITIS OF R UPPER LEG, S/P EXPLORATION AND DRAINAGE 10/07, REEXPLORATION 10/11; MRSA IN BLOOD CULTURE -ACUTE SEPSIS WITH ONGOING HYPOTENSION/SIRS -ACUTE RENAL FAILURE (suspect infection and meds <toradol, vanco, zosyn> as causes. BPs have been good) -, EARLY WITH VAGINAL BLEEDING; with falling bHCG unlikely that she has a viable , I suspect she has aborted spontaneously -IV METHAMPHETAMINE USE -DEAFNESS, CONGENITAL; MUTE -HYPOKALEMIA -ANEMIA LIKELY DUE TO HER ACUTE INFECTION AND SOME EXPECTED SURGICAL BLOOD LOSS Again wounds look very good today and her thigh is less edematous Her I believe is spontaneously aborting, no sign of complication Seen on multidisc rounds as well today Reviewed in detail with Dr Martines PLANS: -continue current abx; stop all NSAID use; recheck vanco level; IV fluid bolus; follow renal fxn closely and reset antbiotic doses -wound recheck tomorrow -she will need extensive counseling regarding meth and other drug use if she will engage; so far is not willing to engage in much interaction here SUBJECTIVE: says pain is still an issue since OR yest no other symptoms OBJECTIVE Vitals reviewed: pulse normal, BPs better; 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, 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 Exam: alert oriented, not very willing to engage in interactions or examination today wound VAC in place appears to be functioning normally/no visible cellulitis, drainage of fluid, or necrosis and no palpable fluctuance skin warm dry color ok, distal capillary refill seems good resps not labored lungs clear BSs heart regular wound vacc in place, wounds look good iv site ok Laboratory data: White blood cell count still very high Creat has now jumped to 1.6 Bhcg is now down to 5 Culture data: Blood cultures now w MRSA Objective: Vital Signs Temp Pulse Resp BP Pulse Ox 36.8 C 92 18 103/81 H 100 10/12/16 08:00 10/12/16 08:00 10/12/16 08:00 10/12/16 08:00 10/12/16 08:00 Microbiology 10/07/16 21:33 Gram Stain - Final Leg - Eswab 10/07/16 21:33 Gram Stain - Final Leg - Tissue Laboratory Results 10/12/16 06:00 10/12/16 06:00 10/11/16 10/12/16 10/13/16 06:59 06:59 06:59 Intake Total 4193 4381 Output Total 9164 9205 Balance 2530 5961 - Time Spent With Patient Time Spent with Patient: greater than 35 minutes Time Spent with Patient: Greater than 35 minutes spent on this patients care, greater than 50% of time spent counseling, educating, and coordinating care regarding the above mentioned plan. ICD10 Worksheet Patient Problems: Problems Problem Status Onset Leukocytosis Acute Right thigh pain Acute Threatened in early Acute
[2016-10-12] MEDS ORDERED: NS 1,000 ML IV ONE (11:05)
[2016-10-12] MEDS ORDERED: PIPERACILLIN/TAZO 3.375 GM/DEX 50 ML IV SCH (12:00)
[2016-10-12] MEDS: PIPERACILLIN/TAZO 3.375 GM/DEX 50 ML IV SCH ×2 (14:15→22:17)
[2016-10-12] MEDS: ZOLPIDEM TARTRATE 5 MG TAB PO PRN (22:20)
[2016-10-13] MEDS: HYDROCODONE/APAP 5/325 TAB PO PRN ×2 (03:16→19:24)
[2016-10-13] MEDS: PIPERACILLIN/TAZO 3.375 GM/DEX 50 ML IV SCH (06:11)
[2016-10-13 06:25] LABS: ADD DIFF? YES; ADD MORPH? NO; ADD SCAN? NO; ATYPICAL LYMPHOCYTE FLAG 30 (0-99); FRAGMENT RBC FLAG 0 (0-99); HEMATOCRIT 22.8 % (38.0-47.0); HEMOGLOBIN 7.2 g/dL (12.6-16.3); LEFT SHIFT FLG 50 (0-99); LIPEMIA HEMOLYSIS FLAG 80 (0-99); MEAN CELL HEMOGLOBIN CONCENTR. 31.6 g/dL (32.4-36.7); MEAN CELL VOLUME 91.9 fL (81.5-99.8); MEAN PLATELET VOLUME 9.2 fL (8.7-11.7); PLATELET CLUMPS FLAG 0 (0-99); PLATELET COUNT 424 10^3/uL (150-400); RED BLOOD CELL COUNT 2.48 10^6/uL (4.18-5.33); RED CELL DISTRIBUTION WIDTH 13.6 % (11.5-15.2)
[2016-10-13 06:54] LABS: ALANINE AMINOTRANSFERASE 28 IU/L (9-52); ALBUMIN 1.9 g/dL (3.5-5.0); ALKALINE PHOSPHATASE 62 IU/L (38-126); ANION GAP 6 mEq/L (8-16); ASPARTATE AMINOTRANSFERASE 13 IU/L (14-46); BILIRUBIN,TOTAL 0.2 mg/dL (0.1-1.4); CALCIUM 7.6 mg/dL (8.5-10.4); CARBON DIOXIDE 23 mEq/l (22-31); CHLORIDE 112 mEq/L (97-110); CREATININE 1.7 mg/dL (0.6-1.0); GLOMERULAR FILTRATION RATE 36; GLUCOSE 63 mg/dL (70-100); POTASSIUM 3.6 mEq/L (3.5-5.2); SODIUM 141 mEq/L (134-144); TOTAL PROTEIN 4.3 g/dL (6.3-8.2)
[2016-10-13 06:59] LABS: VANCOMYCIN RANDOM LEVEL 33.4 mcg/mL (0.0-40.0)
[2016-10-13 07:31] LABS: PLATELET ESTIMATE INCREASED (ADEQ); POLYCHROMASIA 1+
[2016-10-13] MEDS ORDERED: POTASSIUM CL 10 MEQ TAB PO ONE (08:52)
[2016-10-13] MEDS: CLINDAMYCIN 900 MG/DEXTROSE 50 ML IV SCH (09:03)
[2016-10-13] MEDS: ENOXAPARIN 40 MG/0.4 ML SYR SC SCH (09:05)
[2016-10-13] MEDS: NICOTINE 21 MG/24 HR PATCH TD SCH (09:10)
[2016-10-13] MEDS ORDERED: LIDOCAINE HCL 4% TOPICAL SOLN 50ML MM ONE (09:12)
[2016-10-13] MEDS ORDERED: HYDROmorphONE/DILAUDID 1 MG/ML SYR IVP ONE (09:12)
[2016-10-13] MEDS ORDERED: VANCOMYCIN 1.5 GM in D5W 250 ML IV SCH (10:00)
[2016-10-13] MEDS: LORazepam 2 MG/ML INJ IVP PRN ×3 (10:32→19:25)
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
--- NOTE | 2016-10-13 15:56 | PCMIDPN ---
Assessment/Plan: Assessment/Plan: * Right thigh necrotizing fasciitis status post debridement and wound VAC placement: Operative cultures now with growth of Staphylococcus lugdunensis. Blood culture x1 also with late growth of MRSA. Both of these pathogens likely contributing to presentation. No other organisms have grown today therefore will streamline antibiotic therapy targeting these 2 organisms. See below discussion regarding acute renal failure. Will discontinue Zosyn and clindamycin. Patient will undergo wound VAC change in operating room tomorrow with sedation as she could not tolerate at bedside today. * Acute renal failure: Likely multifactorial with medications primary consideration including vancomycin, Zosyn, and Toradol. Creatinine stable today. Vancomycin now has been held given random level of 33 this a.m.. Repeat random level in a.m.. Follow creatinine over time. If creatinine continues to increase, will need to modify therapy to daptomycin. Clinical findings including blood culture findings and acute renal insufficiency and treatment plan were discussed with the patient via sign language translation today. 10/13/16 15:53 10/13/16 15:56 Subjective: Seen in conjunction with hospitalist and surgical services with sign language translation provided. Patient could not tolerate wound VAC change at bedside. Objective: Vital Signs Temp Pulse Resp BP Pulse Ox 36.9 C 92 16 129/88 H 98 10/13/16 08:00 10/13/16 08:00 10/13/16 08:00 10/13/16 08:00 10/13/16 08:00 Microbiology 10/07/16 21:33 Gram Stain - Final Leg - Eswab 10/07/16 21:33 Gram Stain - Final Leg - Tissue Laboratory Results 10/13/16 06:05 10/13/16 06:05 10/12/16 10/13/16 10/14/16 05:59 05:59 05:59 Intake Total 4381 1425 Output Total 1675 2275 Balance 2706 -850 ESR 27 MM/HR (0-20) H 10/07/16 06:10 C-Reactive Protein 255.0 mg/L (<10.0) H 10/07/16 06:10 Vancomycin # 6 Clindamycin # 6 Zosyn # 6 Blood culture 1/2 sets MRSA Operative culture 1/2 specimens with Staphylococcus lugdunensis Laboratory Tests 10/13/16 06:05 Random Vancomycin 33.4 - Physical Exam General Appearance: alert, non-toxic EENT: No scleral icterus Neck: other (IJ triple-lumen catheter without erythema) Extremities: inflammation (Right thigh wound VAC in place with no surrounding erythema; tenderness overall has decreased; induration significantly decreased; right-sided labial edema still present without interval change) ICD10 Worksheet Patient Problems: Problems Problem Status Onset Leukocytosis Acute MRSA (methicillin resistant Staphylococcus aureus) Acute ~10/07/16 Right thigh pain Acute Threatened in early Acute
--- NOTE | 2016-10-13 16:34 | HOSPPROG ---
Hospitalist Progress Note Assessment/Plan: * Necrotizing fascitis of right upper leg s/p I&D -wound vac -can't tolerate bedside wound vac change -to OR for vac change 2 x week * MRSA severe sepsis -IV Vanco * ARF - due to sepsis/toradol/abx * - spontaneous miscarriage -follow bhcg weekly until negative -needs eventual transvaginal US to confirm complete evacuation -needs control offered * IVDA -needs eventual HIV testing * Deaf/mute - 2 interpreters required for communication Subjective: Pain with dressing change, premedicated with IV dilaudid which made her feel good. Objective: Vital Signs Temp Pulse Resp BP Pulse Ox 36.9 C 92 16 129/88 H 98 10/13/16 08:00 10/13/16 08:00 10/13/16 08:00 10/13/16 08:00 10/13/16 08:00 Microbiology 10/07/16 21:33 Gram Stain - Final Leg - Eswab 10/07/16 21:33 Gram Stain - Final Leg - Tissue Laboratory Results 10/13/16 06:05 10/13/16 06:05 10/12/16 10/13/16 10/14/16 05:59 05:59 05:59 Intake Total 4381 1425 Output Total 3779 9814 Balance 2706 -279 - Time Spent With Patient Time Spent with Patient: greater than 35 minutes (very prolonged coordination of care with surgery and ID and wound care, prolonged visit in room communicating with 2 interpreters required for sign language in illiterate patient) Time Spent with Patient: Greater than 35 minutes spent on this patients care, greater than 50% of time spent counseling, educating, and coordinating care regarding the above mentioned plan. - Physical Exam Constitutional: no apparent distress, appears nourished, uncomfortable, other ( severe pain during initial attempts to remove wound vac dressing and procedure aborted) Cardiovascular: No edema Respiratory: no respiratory distress Skin: other (wound viewed, large medial and lateral right thigh, wound vac in place, labial edema) Neurologic: other (awake, alert, signing to material clerk appropriately) Psychiatric: interacting appropriately, flat affect, agitated (easily) ICD10 Worksheet Patient Problems: Problems Problem Status Onset Leukocytosis Acute MRSA (methicillin resistant Staphylococcus aureus) Acute ~10/07/16 Right thigh pain Acute Threatened in early Acute
--- NOTE | 2016-10-13 20:31 | HOSPPROG ---
Hospitalist Progress Note Assessment/Plan: Called to bedside by RN, because patient stated she wanted to kill self. I spoke with patient with deaf/mute interpreters. Anthony is very frustrated and doesn't feel that people understanding what she is going through. She gets very upset when her boyfriend is gone for long periods of time. She is scared that he will leave her though this has never happened in the past. She currently states that she is "fine" and does not want to hurt herself, just wants her boyfriend to stay with her tonight. A&P: 1. Suicidal ideation: denies wanting to hurt self now or a plan. She says she is just very frustrated. Don't feel M1 is warranted at this time. Would readdress her mental state again in the morning. Objective: Vital Signs Temp Pulse Resp BP Pulse Ox 36.6 C 111 H 20 130/80 H 97 10/13/16 16:00 10/13/16 16:00 10/13/16 16:00 10/13/16 16:00 10/13/16 16:00 Microbiology 10/07/16 21:33 Gram Stain - Final Leg - Eswab 10/07/16 21:33 Gram Stain - Final Leg - Tissue Laboratory Results 10/13/16 06:05 10/13/16 06:05 10/12/16 10/13/16 10/14/16 05:59 05:59 05:59 Intake Total 4381 1425 850 Output Total 4156 6985 1650 Balance 2624 -850 -800 - Physical Exam Constitutional: other (agitated, moaning) ICD10 Worksheet Patient Problems: Problems Problem Status Onset Leukocytosis Acute MRSA (methicillin resistant Staphylococcus aureus) Acute ~10/07/16 Right thigh pain Acute Threatened in early Acute
[2016-10-13] MEDS: ZOLPIDEM TARTRATE 5 MG TAB PO PRN (23:22)
[2016-10-14] MEDS: HYDROCODONE/APAP 5/325 TAB PO PRN ×4 (00:22→19:39)
[2016-10-14] MEDS: LORazepam 2 MG/ML INJ IVP PRN ×4 (00:22→20:20)
[2016-10-14 05:30] LABS: ANION GAP 7 mEq/L (8-16); CALCIUM 7.7 mg/dL (8.5-10.4); CARBON DIOXIDE 24 mEq/l (22-31); CHLORIDE 110 mEq/L (97-110); CREATININE 1.5 mg/dL (0.6-1.0); GLOMERULAR FILTRATION RATE 41; GLUCOSE 81 mg/dL (70-100); SODIUM 141 mEq/L (134-144)
[2016-10-14 05:37] LABS: ABSOLUTE NRBC COUNT 0.02 10^3/uL (0-0.01); ADD DIFF? YES; ADD MORPH? NO; ADD SCAN? NO; ATYPICAL LYMPHOCYTE FLAG 0 (0-99); FRAGMENT RBC FLAG 0 (0-99); HEMATOCRIT 21.8 % (38.0-47.0); HEMOGLOBIN 7.2 g/dL (12.6-16.3); LEFT SHIFT FLG 60 (0-99); LIPEMIA HEMOLYSIS FLAG 80 (0-99); MEAN CELL HEMOGLOBIN 29.8 pg (27.9-34.1); MEAN CELL VOLUME 90.1 fL (81.5-99.8); MEAN PLATELET VOLUME 9.2 fL (8.7-11.7); NRBC-AUTO% 0.1 % (0.0-0.2); PLATELET CLUMPS FLAG 0 (0-99); PLATELET COUNT 447 10^3/uL (150-400); RED BLOOD CELL COUNT 2.42 10^6/uL (4.18-5.33); RED CELL DISTRIBUTION WIDTH 13.8 % (11.5-15.2)
[2016-10-14] MEDS ORDERED: BUPIVACAINE 0.5% 30 ML SDV ONE (06:39)
[2016-10-14 07:26] LABS: PLATELET ESTIMATE ADEQUATE (ADEQ)
[2016-10-14 07:28] LABS: HYPOCHROMIA 1+; POLYCHROMASIA 1+
[2016-10-14] MEDS ORDERED: MIDAZOLAM 2 MG/2 ML VIAL ONE (11:30)
[2016-10-14] MEDS ORDERED: fentaNYL 100 MCG/2 ML INJ ONE ×2 (11:38→12:42)
[2016-10-14] MEDS ORDERED: PROPOFOL 200 MG/20 ML VIAL ONE (11:40)
[2016-10-14] MEDS ORDERED: LIDOCAINE 2% JELLY 5 ML TUBE ONE (11:42)
[2016-10-14] MEDS ORDERED: ONDANSETRON 4 MG/2 ML VIAL ONE (11:42)
[2016-10-14] MEDS: NICOTINE 21 MG/24 HR PATCH TD SCH (12:24)
--- NOTE | 2016-10-14 13:05 | POSTOPPROG ---
Post Op Note Date of Operation: 10/14/16 Surgeon: Barrett Matthew Anesthesiologist: Tatyana Anesthesia: GET(General Endotracheal) Pre-op Diagnosis: Nec fasc RLE Post-op Diagnosis: same Procedure: Washout, VAC change Findings: no necrosis, viable tissue Inf/Abcess present in the surg proc area at time of surgery?: No EBL: Minimal Drains: Wound Vac
--- NOTE | 2016-10-14 14:54 | HOSPPROG ---
Hospitalist Progress Note Assessment/Plan: * Necrotizing fascitis of right upper leg s/p I&D -can't tolerate bedside wound vac change -to OR for vac change 2 x week * MRSA severe sepsis - Staph lugdunensis from wound -IV Vanco -consider change alternative agent due to ARF * ARF - due to sepsis/toradol/abx * - spontaneous miscarriage -follow bhcg weekly until negative -needs eventual transvaginal US to confirm complete evacuation -needs control offered * IVDA -needs eventual HIV testing * Deaf/mute - 2 interpreters required for communication Subjective: Seen in PACU post anesthesia, smiling, thumbs up Objective: Vital Signs Temp Pulse Resp BP Pulse Ox 36.4 C 84 18 131/80 H 94 10/14/16 14:30 10/14/16 14:30 10/14/16 14:30 10/14/16 14:30 10/14/16 14:30 Microbiology 10/07/16 21:33 Gram Stain - Final Leg - Eswab Anaerobic Culture - Final Staphylococcus Lugdunensis 10/07/16 21:33 Gram Stain - Final Leg - Tissue Anaerobic Culture - Final Laboratory Results 10/14/16 05:05 10/14/16 05:05 10/13/16 10/14/16 10/15/16 05:59 05:59 05:59 Intake Total 1425 1225 780 Output Total 2275 3100 1205 Balance -632 -1005 -665 - Physical Exam Constitutional: no apparent distress, appears nourished, not in pain Cardiovascular: regular rate and rhythym, no murmur, rub, or gallop Respiratory: no respiratory distress, no rales or rhonchi, clear to auscultation Gastrointestinal: normoactive bowel sounds, soft, non-tender abdomen, no palpable masses Skin: warm, No rash Psychiatric: interacting appropriately, No encephalopathic, No anxious, No flat affect, No agitated ICD10 Worksheet Patient Problems: Problems Problem Status Onset Leukocytosis Acute MRSA (methicillin resistant Staphylococcus aureus) Acute ~10/07/16 Right thigh pain Acute Threatened in early Acute
--- NOTE | 2016-10-14 14:56 | GOP ---
[f rep st] OPERATIVE REPORT DATE OF OPERATION: 10/14/2016 SURGEON: Barrett Matthew MD CIRCUIT BOARD ASSEMBLER: None. ANESTHESIA: General endotracheal ANESTHESIOLOGIST: Dr. Joe. PREOPERATIVE DIAGNOSIS: Necrotizing fasciitis of the right lower extremity. POSTOPERATIVE DIAGNOSIS: Necrotizing fasciitis of the right lower extremity. PROCEDURE PERFORMED: Washout of right lower extremity wounds with VAC placement. FINDINGS: Good viable muscle. No purulence or necrosis identified. VAC subsequently placed. SPECIMENS: None. ESTIMATED BLOOD LOSS: 5 cc. DESCRIPTION OF PROCEDURE: The patient was greeted in the preoperative suite. Risks, benefits, and alternatives discussed. Consent was signed. She was then brought back to the operative suite, plac ed on the OR table in the supine position. After all anesthesia machines, including SCDs, were on a nd functioning, World Health Organization time-out was performed. General endotracheal anesthesia w as then induced without incident. The patient's right leg was then prepped and draped in typical st erile fashion, after removing the VAC. The area was first interrogated and noted to have no necrosi s or purulence in either the medial or lateral wounds. I did not as though closing the wounds at th is point in time would be appropriate, as there was still a fair amount of drainage into the wound V AC canister. I then irrigated each wound with 2 L warm normal saline, noting clear effluent in the suction canister. After this was done, I turned my attention toward replacing the wound VAC into th e medial site. I placed 3 pieces of black sponge into the lateral site. There was 1 piece of black sponge. These were tracked appropriately and connected to wound VAC suction at 125 mmHg, which was well tolerated by the patient. She was then extubated in the operative suite and taken to the PACU in satisfactory condition. COUNTS: All counts were reported as correct x2. /[id number]/MODL
--- NOTE | 2016-10-14 16:58 | PCMIDPN ---
Assessment/Plan: Assessment: R thigh necrotizing fasciitis -- status post debridement. Latest OR visit shows good healthy tissue with no further necrosis. Patient has MRSA from a a blood culture. Also has Staph lugdunensis from operative cultures. Patient is feeling much better today clinically. Pain is much better controlled. She is continuing to have her vancomycin dose held secondary to high Vanco troughs. Undoubtedly with a Vanco trough of 17.8 she will be able to take a dose of vancomycin tomorrow. The decline of her creatinine the even in the face of supratherapeutic vanc levels with indicate that vancomycin alone was not the sole cause of the acute renal failure. She could likely continue to use vancomycin as monotherapy for this condition with close monitoring. Plan: 1. Continue to hold her vancomycin. 2. Re-dose vancomycin 1 g x1 in the a.m.. 3. Follow creatinine prior to vancomycin dosing to ensure there is no acute change for the worse. 10/14/16 18:25 10/14/16 18:25 Subjective: Patient is resting in her hospital bed. She states her pain level is improved. Does request more pain medication and sleep medication. Objective: Vancomycin (by levels) # 7 Vital Signs Temp Pulse Resp BP Pulse Ox 36.8 C 99 16 123/79 H 97 10/14/16 15:30 10/14/16 15:30 10/14/16 15:30 10/14/16 15:30 10/14/16 15:30 Microbiology 10/07/16 21:33 Gram Stain - Final Leg - Eswab Anaerobic Culture - Final Staphylococcus Lugdunensis 10/07/16 21:33 Gram Stain - Final Leg - Tissue Anaerobic Culture - Final Laboratory Results 10/14/16 05:05 10/14/16 05:05 10/13/16 10/14/16 10/15/16 05:59 05:59 05:59 Intake Total 1425 1225 780 Output Total 2275 3100 1205 Balance -850 -1875 -425 ESR 27 MM/HR (0-20) H 10/07/16 06:10 C-Reactive Protein 255.0 mg/L (<10.0) H 10/07/16 06:10 - Physical Exam General Appearance: WD/WN, alert, no apparent distress, thin, non-toxic Respiratory: lungs clear, normal breath sounds, No respiratory distress Cardiac/Chest: regular rate, rhythm, No tachycardia Skin: normal color, warm/dry, other (Right thigh and hip wound dressed with VAC dressing.), No rash Neuro/Psych: alert, normal mood/affect, oriented x 3 ICD10 Worksheet Patient Problems: Problems Problem Status Onset Leukocytosis Acute MRSA (methicillin resistant Staphylococcus aureus) Acute ~10/07/16 Right thigh pain Acute Threatened in early Acute
[2016-10-14] MEDS: ZOLPIDEM TARTRATE 5 MG TAB PO PRN (20:20)
[2016-10-15] MEDS: HYDROCODONE/APAP 5/325 TAB PO PRN ×6 (01:07→20:50)
[2016-10-15] MEDS: LORazepam 2 MG/ML INJ IVP PRN ×2 (01:08→05:05)
[2016-10-15 05:40] LABS: ADD DIFF? YES; ADD MORPH? NO; ADD SCAN? NO; ATYPICAL LYMPHOCYTE FLAG 10 (0-99); FRAGMENT RBC FLAG 0 (0-99); HEMOGLOBIN 7.3 g/dL (12.6-16.3); LEFT SHIFT FLG 30 (0-99); LIPEMIA HEMOLYSIS FLAG 80 (0-99); MEAN CELL HEMOGLOBIN 29.9 pg (27.9-34.1); MEAN CELL HEMOGLOBIN CONCENTR. 33.2 g/dL (32.4-36.7); MEAN CELL VOLUME 90.2 fL (81.5-99.8); MEAN PLATELET VOLUME 9.6 fL (8.7-11.7); PLATELET CLUMPS FLAG 0 (0-99); PLATELET COUNT 508 10^3/uL (150-400); RED BLOOD CELL COUNT 2.44 10^6/uL (4.18-5.33); RED CELL DISTRIBUTION WIDTH 13.9 % (11.5-15.2)
[2016-10-15 06:00] LABS: ANION GAP 6 mEq/L (8-16); CALCIUM 7.8 mg/dL (8.5-10.4); CARBON DIOXIDE 27 mEq/l (22-31); CHLORIDE 107 mEq/L (97-110); CREATININE 1.4 mg/dL (0.6-1.0); GLOMERULAR FILTRATION RATE 44; GLUCOSE 84 mg/dL (70-100); POTASSIUM 4.7 mEq/L (3.5-5.2); SODIUM 140 mEq/L (134-144)
[2016-10-15 06:38] LABS: PLATELET ESTIMATE INCREASED (ADEQ); POLYCHROMASIA 1+; TOXIC GRANULATION PRESENT
--- NOTE | 2016-10-15 07:50 | SOAPPROG ---
SOAP Progress Note Assessment/Plan: Assessment/Plan: - went back for VAC change yesterday. didnt see any purulent material or necrosis, VAC changed completely. No events overnight, WBC remains elevated at 20k, unclear as to why given how good the leg looks. Will plan to keep on over the weekend, next change Tuesday. 10/15/16 07:48 Subjective: Actually seems in good spirits today Objective: Vital Signs Temp Pulse Resp BP Pulse Ox 36.9 C 106 H 18 133/78 H 94 10/15/16 04:00 10/15/16 04:00 10/15/16 04:00 10/15/16 04:00 10/15/16 04:00 Microbiology 10/07/16 21:33 Gram Stain - Final Leg - Eswab Anaerobic Culture - Final Staphylococcus Lugdunensis 10/07/16 21:33 Gram Stain - Final Leg - Tissue Anaerobic Culture - Final Laboratory Results 10/15/16 05:06 10/15/16 05:06 10/14/16 10/15/16 10/16/16 05:59 05:59 05:59 Intake Total 1225 780 Output Total 5760 3553 Balance -5187 -9127 ICD10 Worksheet Patient Problems: Problems Problem Status Onset Leukocytosis Acute MRSA (methicillin resistant Staphylococcus aureus) Acute ~10/07/16 Right thigh pain Acute Threatened in early Acute
--- NOTE | 2016-10-15 08:53 | PCMIDPN ---
Assessment/Plan: #Right thigh necrotizing fasciitis status post debridement and wound VAC placement: Operative cultures show Staphylococcus lugdunensis. last trip to OR showed healthy tissue without residual necrosis. curious that the OR cultures and blood cultures are different but patient with high risk for MRSA. -- resume vancomycin today, 1.25 g IV q.day ; will likely need to be dosed up as renal function improves -- will cautiously monitor vancomycin levels, ordered level before tomorrow's dose #MRSA bacteremia -- vancomycin IV as above #IVDU: Screen for HIV, hepatitis-C, hepatitis-B # ARF likely related to ATN from co-administration of vancomycin and Zosyn. Cr is improving today at 1.4 # leukocytosis: Review of past cultures from 2012 show elevated white count at that time microbiology 10/07 blood culture 06/07 MRSA 10/12 blood culture 1 set no growth today 10/07 surgical cultures Staphylococcus lugdunensis 10/13 C diff negative exam assisted with 2 sign language interpreters Subjective: patient with obvious diarrhea at bedside Objective: Vital Signs Temp Pulse Resp BP Pulse Ox 36.9 C 106 H 18 133/78 H 94 10/15/16 04:00 10/15/16 04:00 10/15/16 04:00 10/15/16 04:00 10/15/16 04:00 Microbiology 10/07/16 21:33 Gram Stain - Final Leg - Eswab Anaerobic Culture - Final Staphylococcus Lugdunensis 10/07/16 21:33 Gram Stain - Final Leg - Tissue Anaerobic Culture - Final Laboratory Results 10/15/16 05:06 10/15/16 05:06 10/14/16 10/15/16 10/16/16 05:59 05:59 05:59 Intake Total 1225 780 Output Total 3100 3555 Balance -1875 -2775 ESR 27 MM/HR (0-20) H 10/07/16 06:10 C-Reactive Protein 255.0 mg/L (<10.0) H 10/07/16 06:10 - Physical Exam General Appearance: alert, other ( agitated due to desire for IV benzos) EENT: poor dentition, No thrush Respiratory: No accessory muscle use Cardiac/Chest: regular rate, rhythm, systolic murmur Extremities: other ( right leg with wound VAC in place no erythema, mild tenderness to palpation, mild swelling) Abdomen: normal bowel sounds, non-tender, soft, other ( obvious liquid stool in the bed) Neuro/Psych: alert, other ( deaf) - Line/s other Lines: other (R IJ TLC), No drainage, No erythema ICD10 Worksheet Patient Problems: Problems Problem Status Onset Leukocytosis Acute MRSA (methicillin resistant Staphylococcus aureus) Acute ~10/07/16 Right thigh pain Acute Threatened in early Acute
[2016-10-15] MEDS: NICOTINE 21 MG/24 HR PATCH TD SCH (08:55)
[2016-10-15] MEDS: LORazepam 0.5 MG TAB PO PRN ×4 (08:55→20:51)
[2016-10-15] MEDS: ENOXAPARIN 40 MG/0.4 ML SYR SC SCH (08:55)
[2016-10-15] MEDS: VANCOMYCIN 1.25 GM in D5W 250 ML IV SCH (10:05)
[2016-10-15] MEDS: LOPERAMIDE HCL 2 MG CAP PO PRN (14:30)
--- NOTE | 2016-10-15 16:14 | HOSPPROG ---
Hospitalist Progress Note Assessment/Plan: * Necrotizing fascitis of right upper leg s/p I&D -next wound vac change Tuesday -wound looks good - unclear significance of leukocytosis * MRSA severe sepsis + Staph lugdunensis from wound -IV Vanco -watch renal function closely * ARF - due to sepsis/toradol/abx * - spontaneous miscarriage - beta HCG now negative -needs eventual transvaginal US to confirm complete evacuation -needs control offered * IVDA -HIV negative * Hep C * Deaf/mute - 2 interpreters required for communication Subjective: No complaints. Pain well controlled Objective: Vital Signs Temp Pulse Resp BP Pulse Ox 36.8 C 114 H 16 124/93 H 89 L 10/15/16 12:00 10/15/16 12:00 10/15/16 12:00 10/15/16 12:00 10/15/16 12:00 Microbiology 10/07/16 21:33 Gram Stain - Final Leg - Eswab Anaerobic Culture - Final Staphylococcus Lugdunensis 10/07/16 21:33 Gram Stain - Final Leg - Tissue Anaerobic Culture - Final Laboratory Results 10/15/16 05:06 10/15/16 05:06 10/14/16 10/15/16 10/16/16 05:59 05:59 05:59 Intake Total 1225 780 240 Output Total 3100 4375 1200 [facility] -7315 -2775 -960 - Physical Exam Constitutional: no apparent distress, appears nourished, not in pain Cardiovascular: regular rate and rhythym, no murmur, rub, or gallop Respiratory: no respiratory distress, no rales or rhonchi, clear to auscultation Gastrointestinal: normoactive bowel sounds, soft, non-tender abdomen, no palpable masses Skin: no rashes or abrasions, no fluctuance (wound vac looks good), no induration, other Neurologic: AAOx3, sensation intact bilaterally Psychiatric: interacting appropriately, not encephalopathic, thought process linear, anxious (easily gets upset), other (appropriate with 2 sign language interpreters present) ICD10 Worksheet Patient Problems: Problems Problem Status Onset Leukocytosis Acute MRSA (methicillin resistant Staphylococcus aureus) Acute ~10/07/16 Right thigh pain Acute Threatened in early Acute
[2016-10-15] MEDS: ZOLPIDEM TARTRATE 5 MG TAB PO PRN (20:49)
[2016-10-16] MEDS: HYDROCODONE/APAP 5/325 TAB PO PRN ×4 (03:03→20:40)
[2016-10-16] MEDS: LORazepam 0.5 MG TAB PO PRN ×4 (03:10→22:29)
[2016-10-16] MEDS: LOPERAMIDE HCL 2 MG CAP PO PRN ×4 (05:57→20:12)
[2016-10-16 05:58] LABS: ANION GAP 6 mEq/L (8-16); CALCIUM 8.1 mg/dL (8.5-10.4); CARBON DIOXIDE 28 mEq/l (22-31); CHLORIDE 105 mEq/L (97-110); CREATININE 1.3 mg/dL (0.6-1.0); GLOMERULAR FILTRATION RATE 48; GLUCOSE 86 mg/dL (70-100); POTASSIUM 4.5 mEq/L (3.5-5.2); SODIUM 139 mEq/L (134-144)
[2016-10-16 06:00] LABS: ADD DIFF? YES; ADD MORPH? NO; ADD SCAN? NO; ATYPICAL LYMPHOCYTE FLAG 0 (0-99); FRAGMENT RBC FLAG 0 (0-99); HEMATOCRIT 21.3 % (38.0-47.0); LEFT SHIFT FLG 30 (0-99); LIPEMIA HEMOLYSIS FLAG 80 (0-99); MEAN CELL HEMOGLOBIN CONCENTR. 32.9 g/dL (32.4-36.7); MEAN CELL VOLUME 88.4 fL (81.5-99.8); MEAN PLATELET VOLUME 9.2 fL (8.7-11.7); PLATELET CLUMPS FLAG 0 (0-99); PLATELET COUNT 560 10^3/uL (150-400); RED BLOOD CELL COUNT 2.41 10^6/uL (4.18-5.33); RED CELL DISTRIBUTION WIDTH 13.8 % (11.5-15.2)
[2016-10-16 06:24] LABS: POLYCHROMASIA 1+; TOXIC GRANULATION PRESENT
[2016-10-16 06:26] LABS: PLATELET ESTIMATE INCREASED (ADEQ)
[2016-10-16] MEDS: NICOTINE 21 MG/24 HR PATCH TD SCH (09:27)
[2016-10-16] MEDS: ENOXAPARIN 40 MG/0.4 ML SYR SC SCH (09:27)
--- NOTE | 2016-10-16 11:01 | SOAPPROG ---
SOAP Progress Note Assessment/Plan: Assessment: completely uncooperative 31 female with nec fasciitis/ wbc 29k/ temp 39+ very tender rt thigh needs debridement soon but unable to obtain consent and no apparent family or guardian this is a rapidly devastating situation that needs surgery quickly to prevent and limb loss/ even with surgery we may not save her Plan:to or as an emergency for debridement of nec fasciitis 10/07/16 19:24 10/07/16 22:25 POSTOP STABLE/ SURGICAL FINDINGS VERY UNDERWHELMING COMPARED TO CLINICAL COURSE AND MRI 10/08/16 21:39 overall better vital signs in urine output / still difficult to evaluate / wound VAC change Tuesday unless needed sooner by clinical indicators 10/16/16 11:00 WOUNDS STABLE/ AFEBRILE/ NO NEW PROBLEMS/ VAC CHANGE TUESDAY Objective: Vital Signs Temp Pulse Resp BP Pulse Ox 36.9 C 108 H 18 140/88 H 96 10/16/16 08:00 10/16/16 08:00 10/16/16 08:00 10/16/16 08:00 10/16/16 08:00 Laboratory Results 10/16/16 05:20 10/16/16 05:20 10/15/16 10/16/16 10/17/16 05:59 05:59 05:59 Intake Total 780 640 Output Total 3553 2759 475 Balance -2775 -2110 -475 ICD10 Worksheet Patient Problems: Problems Problem Status Onset Leukocytosis Acute MRSA (methicillin resistant Staphylococcus aureus) Acute ~10/07/16 Right thigh pain Acute Threatened in early Acute
[2016-10-16] MEDS: VANCOMYCIN 1.25 GM in D5W 250 ML IV SCH (11:35)
--- NOTE | 2016-10-16 13:25 | HOSPPROG ---
Hospitalist Progress Note Assessment/Plan: 31-year-old with a history of IV drug use is admitted with necrotizing fasciitis status post I and D in followed today by Dr. Delatorre. She has a wound VAC in place this was complicated by MR bacteremia # necrotizing fasciitis in the right upper leg, status post I and D on October 07. Complicated by MRSA severe sepsis and Staph Lugdunessis from wound * IV Vanco * wound care * appreciate ID and surgery follow-up * wound VAC change on Tuesday will reassess at that time regarding antibiotics and ongoing wound care # acute renal failure due to sepsis and Toradol and antibiotics, improving, continue to follow # spontaneous miscarriage, beta HCG now negative. Will eventually need a transvaginal ultrasound to confirm complete evacuation # IV drug use * HIV negative * hep C positive # anemia: Low iron levels. Patient with minimal symptoms at this time will follow and add iron. # deaf mute from , at 2 interpreters required Subjective: patient new to me and chart reviewed. Pain is not too bad, no new complaints today. Objective: Vital Signs Temp Pulse Resp BP Pulse Ox 37 C 109 H 18 136/92 H 96 10/16/16 11:58 10/16/16 11:58 10/16/16 11:58 10/16/16 11:58 10/16/16 11:58 Laboratory Results 10/16/16 05:20 10/16/16 05:20 10/15/16 10/16/16 10/17/16 05:59 05:59 05:59 Intake Total 780 640 Output Total 1998 3891 959 Balance -7353 -1889 -357 - Physical Exam Constitutional: no apparent distress, chronically ill appearing, unkempt Eyes: PERRL, anicteric sclera, EOMI Ears, Nose, Mouth, Throat: moist mucous membranes Cardiovascular: regular rate and rhythym, no murmur, rub, or gallop, systolic murmur Respiratory: no respiratory distress, no rales or rhonchi, clear to auscultation Gastrointestinal: normoactive bowel sounds, soft, non-tender abdomen, no palpable masses, No ascites Genitourinary: de santiago in urethra Skin: warm, other ( Wound VAC right inner thigh) Musculoskeletal: no joint effusions, No muscular tenderness Neurologic: AAOx3 Psychiatric: interacting appropriately ICD10 Worksheet Patient Problems: Problems Problem Status Onset MRSA (methicillin resistant Staphylococcus aureus) Acute ~10/07/16 Right thigh pain Acute Leukocytosis Acute Threatened in early Acute
[2016-10-16 15:04] LABS: HEPATITIS Bs Ab QUANT 172 mIU/mL
[2016-10-16] MEDS: FERROUS SULFATE 140 MG TAB.ER PO SCH (15:07)
--- NOTE | 2016-10-16 15:42 | PCMIDPN ---
Assessment/Plan: Assessment/Plan: 1. RLE necrotizing fascitis: -Blood cx postiive for MRSa. f/u blood cx ngtd -Leg cx now showing Staph lugdenesis. -Creatinine at 1.3. -patient much more comfortable today -vanco trough today at 14.2 - monitor labs closely 2. HCV Ab positive. - check HCV RNA Meds vanco 1.25gm qd-10/15/16 (restartedO Subjective: Afebrile. Pleasant. Smiling. Feels good. Denies pain in her thigh. wound vac in place. denies sob, abd pain, diarrhea. Objective: Vital Signs Temp Pulse Resp BP Pulse Ox 37.1 C 108 H 18 142/93 H 92 10/16/16 15:17 10/16/16 15:17 10/16/16 15:17 10/16/16 15:17 10/16/16 15:17 Laboratory Results 10/16/16 05:20 10/16/16 05:20 10/15/16 10/16/16 10/17/16 05:59 05:59 05:59 Intake Total 780 640 Output Total 3555 6080 475 Balance -2775 -2110 -475 ESR 27 MM/HR (0-20) H 10/07/16 06:10 C-Reactive Protein 255.0 mg/L (<10.0) H 10/07/16 06:10 - Physical Exam General Appearance: alert, no apparent distress Respiratory: lungs clear Cardiac/Chest: regular rate, rhythm Extremities: other (wound vac to right thigh. ) Abdomen: normal bowel sounds, non-tender, soft, No distended ICD10 Worksheet Patient Problems: Problems Problem Status Onset Leukocytosis Acute MRSA (methicillin resistant Staphylococcus aureus) Acute ~10/07/16 Right thigh pain Acute Threatened in early Acute
[2016-10-16 16:58] LABS: PHENCYCLIDINE URINE BCH < 6 ng/ml (NEGATIVE); PHENCYCLIDINE URINE BCH NEGATIVE (NEGATIVE); TETRAHYDROCANNABINOL URINE < 5 ng/mL (NEGATIVE); TETRAHYDROCANNABINOL URINE NEGATIVE (NEGATIVE)
[2016-10-16 17:50] LABS: PHENCYCLIDINE URINE BCH < 6 ng/ml (NEGATIVE); PHENCYCLIDINE URINE BCH NEGATIVE (NEGATIVE); TETRAHYDROCANNABINOL URINE < 5 ng/mL (NEGATIVE); TETRAHYDROCANNABINOL URINE NEGATIVE (NEGATIVE)
[2016-10-16] MEDS: SIMETHICONE 80 MG TAB CHEW PO SCH (20:12)
[2016-10-16] MEDS: ZOLPIDEM TARTRATE 5 MG TAB PO PRN (22:29)
[2016-10-17] MEDS: ZOLPIDEM TARTRATE 5 MG TAB PO PRN (01:47)
[2016-10-17] MEDS: LORazepam 0.5 MG TAB PO PRN ×5 (04:11→20:57)
[2016-10-17 06:46] LABS: ADD DIFF? YES; ADD MORPH? YES; ADD SCAN? NO; ATYPICAL LYMPHOCYTE FLAG 10 (0-99); FRAGMENT RBC FLAG 0 (0-99); HEMATOCRIT 20.9 % (38.0-47.0); LEFT SHIFT FLG 10 (0-99); LIPEMIA HEMOLYSIS FLAG 80 (0-99); MEAN CELL HEMOGLOBIN 29.5 pg (27.9-34.1); MEAN CELL VOLUME 89.3 fL (81.5-99.8); MEAN PLATELET VOLUME 9.3 fL (8.7-11.7); PLATELET CLUMPS FLAG 10 (0-99); PLATELET COUNT 644 10^3/uL (150-400); RED BLOOD CELL COUNT 2.34 10^6/uL (4.18-5.33); RED CELL DISTRIBUTION WIDTH 13.6 % (11.5-15.2)
[2016-10-17 06:51] LABS: HEMOGLOBIN 6.9 g/dL (12.6-16.3)
[2016-10-17 07:38] LABS: POLYCHROMASIA 1+
[2016-10-17 07:39] LABS: PLATELET ESTIMATE INCREASED (ADEQ)
--- NOTE | 2016-10-17 08:49 | SOAPPROG ---
SOAP Progress Note Assessment/Plan: Assessment: completely uncooperative 31 female with nec fasciitis/ wbc 29k/ temp 39+ very tender rt thigh needs debridement soon but unable to obtain consent and no apparent family or guardian this is a rapidly devastating situation that needs surgery quickly to prevent and limb loss/ even with surgery we may not save her Plan:to or as an emergency for debridement of nec fasciitis 10/07/16 19:24 10/07/16 22:25 POSTOP STABLE/ SURGICAL FINDINGS VERY UNDERWHELMING COMPARED TO CLINICAL COURSE AND MRI 10/08/16 21:39 overall better vital signs in urine output / still difficult to evaluate / wound VAC change Tuesday unless needed sooner by clinical indicators 10/16/16 11:00 WOUNDS STABLE/ AFEBRILE/ NO NEW PROBLEMS/ VAC CHANGE Tuesday10/17/16 08:45 wounds stable/ vac change in am/ wbc still 21k/ hct 21/ Objective: Vital Signs Temp Pulse Resp BP Pulse Ox 36.4 C 116 H 16 120/73 96 10/17/16 03:58 10/17/16 03:58 10/16/16 23:36 10/17/16 03:58 10/16/16 23:36 Laboratory Results 10/17/16 06:40 10/16/16 05:20 10/16/16 10/17/16 10/18/16 05:59 05:59 05:59 Intake Total 640 265 Output Total 0043 0476 Balance -2110 -1214 ICD10 Worksheet Patient Problems: Problems Problem Status Onset Leukocytosis Acute MRSA (methicillin resistant Staphylococcus aureus) Acute ~10/07/16 Right thigh pain Acute Threatened in early Acute
[2016-10-17] MEDS: FERROUS SULFATE 140 MG TAB.ER PO SCH (09:35)
[2016-10-17] MEDS: SIMETHICONE 80 MG TAB CHEW PO SCH ×4 (09:36→20:55)
[2016-10-17] MEDS: ENOXAPARIN 40 MG/0.4 ML SYR SC SCH (10:45)
[2016-10-17] MEDS: NICOTINE 21 MG/24 HR PATCH TD SCH (10:46)
[2016-10-17] MEDS: VANCOMYCIN 1.25 GM in D5W 250 ML IV SCH (12:20)
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
--- NOTE | 2016-10-17 16:21 | PCMIDPN ---
Assessment/Plan: Assessment/Plan: 1. RLE necrotizing fascitis: -Blood cx postiive for MRSa. f/u blood cx ngtd -Leg cx now showing Staph lugdenesis. -Creatinine at 1.3. -patient much more comfortable today -vanco trough at 14.2 - monitor labs closely 2. HCV Ab positive. - check HCV RNA Meds vanco 1.25gm qd-10/15/16 (restartedO Subjective: low grade temp today. Patient very anxious as her boyfriend hasn't come yet to see her. She wants to go out and smoke. Denies pain involving her right thigh, sob, abd pain or diarrhea. communicated via sign language interpreters. Objective: Vital Signs Temp Pulse Resp BP Pulse Ox 36.6 C 109 H 16 129/86 H 91 L 10/17/16 12:00 10/17/16 12:00 10/17/16 12:00 10/17/16 12:00 10/17/16 12:00 Laboratory Results 10/17/16 06:40 10/16/16 05:20 10/16/16 10/17/16 10/18/16 05:59 05:59 05:59 Intake Total 640 265 Output Total 2750 1475 Balance -2110 -1210 ESR 27 MM/HR (0-20) H 10/07/16 06:10 C-Reactive Protein 255.0 mg/L (<10.0) H 10/07/16 06:10 - Physical Exam General Appearance: alert, no apparent distress Respiratory: lungs clear Cardiac/Chest: regular rate, rhythm Extremities: No swelling Abdomen: normal bowel sounds, non-tender, soft, No distended Skin: other (right thigh wound vac, nontender to -palpate around site. ) ICD10 Worksheet Patient Problems: Problems Problem Status Onset Leukocytosis Acute MRSA (methicillin resistant Staphylococcus aureus) Acute ~10/07/16 Right thigh pain Acute Threatened in early Acute
[2016-10-18] MEDS: LORazepam 0.5 MG TAB PO PRN ×4 (00:32→19:46)
[2016-10-18] MEDS ORDERED: BUPIVACAINE 0.5% 30 ML SDV ONE (07:10)
[2016-10-18] MEDS ORDERED: BACITRACIN 50,000 UNITS/10 ML SYR IRR ONE (07:10)
[2016-10-18] MEDS ORDERED: THROMBIN (BOVINE) 20,000 UNIT SPRAY TP ONE (07:10)
[2016-10-18] MEDS ORDERED: MIDAZOLAM 2 MG/2 ML VIAL ONE (07:11)
[2016-10-18] MEDS ORDERED: fentaNYL 100 MCG/2 ML INJ ONE ×2 (07:22→08:34)
[2016-10-18] MEDS ORDERED: PROPOFOL/EMULSION 500 MG/50 ML BOTTLE IV ONE (07:25)
[2016-10-18] MEDS ORDERED: POLYMYXIN B SULFATE 500,000 UNIT/10 ML SYR IRR ONE (08:00)
--- NOTE | 2016-10-18 08:28 | POSTOPPROG ---
Post Op Note Date of Operation: 10/18/16 Surgeon: Ezra Delatorre Construction Grip: Lisa Gage Anesthesiologist: Malika Anesthesia: GET(General Endotracheal) Pre-op Diagnosis: open R leg wounds, nec fasc Post-op Diagnosis: same Procedure: wound irrigation with delayed closure x 2 Findings: healthy muscle and subq tissue Inf/Abcess present in the surg proc area at time of surgery?: No EBL: Minimal Complications: none Drains: Mikie Cooper (x2)
[2016-10-18 09:35] LABS: % IMMATURE GRANULYOCYTES 1.7 % (0.0-1.1); ABSOLUTE IMMATURE GRANULOCYTES 0.29 10^3/uL (0.00-0.10); ADD DIFF? NO; ADD MORPH? YES; ADD SCAN? NO; ATYPICAL LYMPHOCYTE FLAG 10 (0-99); FRAGMENT RBC FLAG 0 (0-99); HEMATOCRIT 20.7 % (38.0-47.0); LEFT SHIFT FLG 10 (0-99); LIPEMIA HEMOLYSIS FLAG 80 (0-99); MEAN CELL HEMOGLOBIN 29.1 pg (27.9-34.1); MEAN CELL HEMOGLOBIN CONCENTR. 32.4 g/dL (32.4-36.7); MEAN PLATELET VOLUME 9.8 fL (8.7-11.7); PLATELET CLUMPS FLAG 20 (0-99); PLATELET COUNT 727 10^3/uL (150-400); RED CELL DISTRIBUTION WIDTH 13.5 % (11.5-15.2)
[2016-10-18 09:36] LABS: HEMOGLOBIN 6.7 g/dL (12.6-16.3)
[2016-10-18 09:56] LABS: PLATELET ESTIMATE INCREASED (ADEQ)
[2016-10-18 09:59] LABS: POLYCHROMASIA 1+; TOXIC GRANULATION PRESENT
--- NOTE | 2016-10-18 10:18 | GOP ---
[f rep st] OPERATIVE REPORT DATE OF OPERATION: 10/18/2016 SURGEON: Ezra Delatorre MD PREOPERATIVE DIAGNOSIS: History of necrotizing fasciitis with open inner and outer thigh wounds. POSTOPERATIVE DIAGNOSIS: History of necrotizing fasciitis with open inner and outer thigh wounds. PROCEDURE PERFORMED: Wound debridement and advancement flap closure. FINDINGS: Patient was found to have good granulation and good tissue in both of her medial and late ral wounds. There was no evidence of any persistent necrosis. The wounds were debrided and flushed with pulse lavage. Bilaterally, 15 mm LIGIA drains were brought out through separate stab incisions a nd placed in the cavity. The wounds were then closed with a single-layer with 2-0 nylon interrupted sutures. This was after advancing the flaps laterally and medially on both wounds. Inner thigh wo und was 15 cm and the outer thigh wound was 10 cm. She tolerated the procedure well. The wounds we re infiltrated with 0.5% Marcaine. Blood loss was negligible. Taken to the recovery room in good c ondition. There were no complications. The drains were secured at the exit site with nylon sutures . DESCRIPTION OF PROCEDURE: /[id number]/MODL
[2016-10-18] MEDS: SIMETHICONE 80 MG TAB CHEW PO SCH ×4 (10:50→19:47)
[2016-10-18] MEDS: FERROUS SULFATE 140 MG TAB.ER PO SCH (10:50)
[2016-10-18] MEDS: VANCOMYCIN 1.25 GM in D5W 250 ML IV SCH (10:51)
[2016-10-18] MEDS: ENOXAPARIN 40 MG/0.4 ML SYR SC SCH (10:52)
--- NOTE | 2016-10-18 11:08 | PCMIDPN ---
Assessment/Plan: Assessment: R thigh necrotizing fasciitis -- status post debridement. Latest OR visit shows good healthy tissue with no further necrosis. Patient has MRSA from a a blood culture. Also has Staph lugdunensis from operative cultures. Patient continues to improve clinically. Wanting to know when she can go home. Plan: 1. Continue 0.25 g IV Q 24. 2. Follow her clinical improvement. Will confer with surgery about appropriate discharge timing and placement. Subjective: Patient is resting comfortably in her hospital bed. She states she feels well. No new complaints. Tolerating vancomycin without issue. Objective: Vancomycin # 11 Vital Signs Temp Pulse Resp BP Pulse Ox 36.9 C 107 H 18 124/79 H 99 10/18/16 10:38 10/18/16 10:38 10/18/16 10:38 10/18/16 10:38 10/18/16 10:38 Microbiology 10/12/16 16:30 Blood Culture - Final Blood Laboratory Results 10/18/16 09:30 10/16/16 05:20 10/17/16 10/18/16 10/19/16 05:59 05:59 05:59 Intake Total 265 285 960 Output Total 1475 1000 10 Balance -1210 -715 950 ESR 27 MM/HR (0-20) H 10/07/16 06:10 C-Reactive Protein 255.0 mg/L (<10.0) H 10/07/16 06:10 - Physical Exam General Appearance: WD/WN, alert, no apparent distress, thin, other ( Congenitally deaf) Respiratory: lungs clear, normal breath sounds, No respiratory distress Cardiac/Chest: regular rate, rhythm, No tachycardia Extremities: non-tender, No normal inspection (Right hip and upper lower extremity with surgical dressings. No surrounding erythema or tenderness.) Skin: normal color, warm/dry, No rash Neuro/Psych: alert, normal mood/affect, oriented x 3 ICD10 Worksheet Patient Problems: Problems Problem Status Onset Leukocytosis Acute MRSA (methicillin resistant Staphylococcus aureus) Acute ~10/07/16 Right thigh pain Acute Threatened in early Acute
[2016-10-18] MEDS: NICOTINE 21 MG/24 HR PATCH TD SCH (11:11)
--- NOTE | 2016-10-18 14:09 | HOSPPROG ---
Hospitalist Progress Note Assessment/Plan: 31-year-old with a history of IV drug use is admitted with necrotizing fasciitis status post I and D in followed today by Dr. Delatorre. She has a wound VAC in place this was complicated by MRSA bacteremia. Status post I and D this morning in the OR. Wound VAC removed and she does have [address] She has minimal pain in her leg and continues to ask about going home. # necrotizing fasciitis in the right upper leg, Complicated by MRSA severe sepsis and Staph Lugdunessis from wound. Currently on IV Vanco followed by ID and General surgery. Discussed care with Dr. Delatorre today. * Continue IV Vanco, length of therapy per Infectious Disease. I did discuss possibility of rehab post hospitalization depending on how long she needs to be on the IV antibiotics * Ongoing wound care here in the hospital or at skilled rehab until her wounds are out and she is safe for discharge. * Case management to talk with patient about possible skilled rehab post hospitalization. # acute renal failure due to sepsis and Toradol and antibiotics, improving, continue to follow # spontaneous miscarriage, beta HCG now negative. Will eventually need a transvaginal ultrasound to confirm complete evacuation # IV drug use * HIV negative * hep C positive # anemia: Low iron levels. Patient with minimal symptoms at this time will follow and add iron. If continues to drop would consider transfusion prior to discharge given her poor nutritional status. # deaf mute from , at 2 interpreters required Subjective: Patient in a good mood. She denies any pain in her leg. Wants to go home but is being reasonable about the possibility of rehab for wound care and IV antibiotics. Objective: Vital Signs Temp Pulse Resp BP Pulse Ox 36.7 C 104 H 16 122/81 H 90 L 10/18/16 12:39 10/18/16 12:39 10/18/16 12:39 10/18/16 12:39 10/18/16 12:39 Microbiology 10/12/16 16:30 Blood Culture - Final Blood Laboratory Results 10/18/16 09:30 10/16/16 05:20 10/17/16 10/18/16 10/19/16 05:59 05:59 05:59 Intake Total 265 285 960 Output Total 1475 1000 40 Balance -1210 -715 920 - Physical Exam Constitutional: not in pain, chronically ill appearing, unkempt Eyes: PERRL, anicteric sclera, EOMI Ears, Nose, Mouth, Throat: moist mucous membranes Cardiovascular: regular rate and rhythym, no murmur, rub, or gallop Respiratory: no respiratory distress, no rales or rhonchi, clear to auscultation Gastrointestinal: normoactive bowel sounds, soft, non-tender abdomen Genitourinary: no bladder fullness Skin: warm, other (Bandages on her right thigh with [address]) Musculoskeletal: no joint effusions, No asymmetric calves Neurologic: AAOx3 Psychiatric: interacting appropriately, not anxious ICD10 Worksheet Patient Problems: Problems Problem Status Onset MRSA (methicillin resistant Staphylococcus aureus) Acute ~10/07/16 Right thigh pain Acute Leukocytosis Acute Threatened in early Acute
[2016-10-18 14:12] LABS: CHLAMYDIA AMPLIFICATION GENPRB NEGATIVE (NEGATIVE)
[2016-10-18] MEDS: HYDROCODONE/APAP 5/325 TAB PO PRN (19:46)
[2016-10-18] MEDS: ZOLPIDEM TARTRATE 5 MG TAB PO PRN (21:14)
[2016-10-19] MEDS: LORazepam 0.5 MG TAB PO PRN ×3 (00:36→19:42)
[2016-10-19] MEDS: HYDROCODONE/APAP 5/325 TAB PO PRN ×3 (00:36→19:42)
[2016-10-19 05:52] LABS: ANION GAP 8 mEq/L (8-16); CALCIUM 8.3 mg/dL (8.5-10.4); CARBON DIOXIDE 26 mEq/l (22-31); CHLORIDE 109 mEq/L (97-110); CREATININE 1.4 mg/dL (0.6-1.0); GLOMERULAR FILTRATION RATE 44; GLUCOSE 88 mg/dL (70-100); POTASSIUM 4.8 mEq/L (3.5-5.2); SODIUM 143 mEq/L (134-144)
[2016-10-19] MEDS: ENOXAPARIN 40 MG/0.4 ML SYR SC SCH (07:42)
[2016-10-19] MEDS: SIMETHICONE 80 MG TAB CHEW PO SCH ×4 (07:46→20:54)
[2016-10-19] MEDS: FERROUS SULFATE 140 MG TAB.ER PO SCH (07:52)
[2016-10-19] MEDS: NICOTINE 21 MG/24 HR PATCH TD SCH (09:39)
[2016-10-19] MEDS: VANCOMYCIN 1.25 GM in D5W 250 ML IV SCH (09:40)
--- NOTE | 2016-10-19 13:57 | PCMIDPN ---
Assessment/Plan: Assessment/Plan: 1. RLE necrotizing fascitis: -Blood cx postiive for MRSa. f/u blood cx ngtd -Leg cx now showing Staph lugdenesis. -Creatinine at 1.4. -patient much more comfortable today -vanco trough at 14.2 on 10/15/16. will order f/u trough for AM. - wounds now closed, with drains in place. - On D#13 of antibiotics - care coordinated with surgery. 2. MrsA bacteremia: - ON Vancomycin -D#7 from negative cultures on 10/12/16. D#13 overall Meds vanco 1.25gm qd-10/15/16 (restarted) Has been on Vanco since 10/07/16 s/p zosyn, clinda Subjective: Afebrile. Denies sob, abd pain or diarrhea. Denies pain involving her right thigh. Objective: Vital Signs Temp Pulse Resp BP Pulse Ox 36.9 C 91 18 127/88 H 96 10/19/16 11:27 10/19/16 11:27 10/19/16 11:27 10/19/16 11:27 10/19/16 11:27 Microbiology 10/12/16 16:30 Blood Culture - Final Blood Laboratory Results 10/19/16 05:05 10/19/16 05:05 10/18/16 10/19/16 10/20/16 05:59 05:59 05:59 Intake Total 285 2490 Output Total 1000 1575 Balance -715 915 ESR 27 MM/HR (0-20) H 10/07/16 06:10 C-Reactive Protein 255.0 mg/L (<10.0) H 10/07/16 06:10 - Physical Exam General Appearance: alert, no apparent distress Respiratory: lungs clear Cardiac/Chest: regular rate, rhythm Extremities: No swelling Abdomen: normal bowel sounds, non-tender, soft, No distended Skin: other (right thigh: wounds are sutured now, medially and laterally. intact. no erythema, or drainage. some induration medially. nontender. two drains noted. with serosanguinous drainage.) ICD10 Worksheet Patient Problems: Problems Problem Status Onset Leukocytosis Acute MRSA (methicillin resistant Staphylococcus aureus) Acute ~10/07/16 Right thigh pain Acute Threatened in early Acute
--- NOTE | 2016-10-19 15:20 | HOSPPROG ---
Hospitalist Progress Note Assessment/Plan: 31-year-old with a history of IV drug use is admitted with necrotizing fasciitis status post I and D in followed today by Dr. Delatorre. She has a wound VAC in place this was complicated by MRSA bacteremia. Status post I and D this morning in the OR. Wound VAC removed and she does have [address] She has minimal pain in her leg and continues to ask about going home. # necrotizing fasciitis in the right upper leg, Complicated by MRSA severe sepsis and Staph Lugdunessis from wound. Currently on IV Vanco followed by ID and General surgery. Day 13. Of antibiotics, day 7. Of vancomycin * Continue IV Vanco, length of therapy per Infectious Disease. I did discuss possibility of rehab post hospitalization depending on how long she needs to be on the IV antibiotics * Ongoing wound care here in the hospital or at skilled rehab until her wounds are out and she is safe for discharge. * Case management to talk with patient about possible skilled rehab post hospitalization. # acute renal failure due to sepsis and Toradol and antibiotics, improving, continue to follow # spontaneous miscarriage, beta HCG now negative. Will eventually need a transvaginal ultrasound to confirm complete evacuation patient has had no issues here in the hospital. # IV drug use * HIV negative * hep C positive # anemia: Low iron levels. Patient with minimal symptoms at this time will follow and add iron. If continues to drop would consider transfusion prior to discharge given her poor nutritional status. # deaf mute from , at 2 interpreters required * Disposition: Patient cannot go home on IV antibiotics given her history of methamphetamine use, and she should not go home while drains are in place and she needs ongoing wound care. I did discuss possibility of rehab and she is thinking about it. It really depends on how long she is going to need IV antibiotics per ID. In the meantime will continue her inpatient care. Case management has been involved. Subjective: Patient has no complaints. No vaginal bleeding. Able to ambulate with minimal pain in her leg. She does become quite agitated at times. Objective: Vital Signs Temp Pulse Resp BP Pulse Ox 36.9 C 91 18 127/88 H 96 10/19/16 11:27 10/19/16 11:27 10/19/16 11:27 10/19/16 11:27 10/19/16 11:27 Laboratory Results 10/19/16 05:05 10/19/16 05:05 10/18/16 10/19/16 10/20/16 05:59 05:59 05:59 Intake Total 285 7340 Output Total 1000 1575 Balance -715 915 - Physical Exam Constitutional: uncomfortable, unkempt Ears, Nose, Mouth, Throat: moist mucous membranes Cardiovascular: regular rate and rhythym Respiratory: no respiratory distress, no rales or rhonchi Gastrointestinal: soft, non-tender abdomen Skin: other ( Right leg bandaged, 2 drains with bloody discharge) ICD10 Worksheet Patient Problems: Problems Problem Status Onset MRSA (methicillin resistant Staphylococcus aureus) Acute ~10/07/16 Right thigh pain Acute Leukocytosis Acute Threatened in early Acute
[2016-10-19] MEDS: ACETAMINOPHEN 325 MG TAB PO PRN (17:54)
[2016-10-19] MEDS: ZOLPIDEM TARTRATE 5 MG TAB PO PRN (21:26)
[2016-10-20] MEDS: HYDROCODONE/APAP 5/325 TAB PO PRN ×4 (01:33→19:26)
[2016-10-20] MEDS: LORazepam 0.5 MG TAB PO PRN ×4 (01:34→19:26)
[2016-10-20 06:25] LABS: % IMMATURE GRANULYOCYTES 1.5 % (0.0-1.1); ABSOLUTE IMMATURE GRANULOCYTES 0.19 10^3/uL (0.00-0.10); ADD DIFF? NO; ADD MORPH? YES; ADD SCAN? NO; ATYPICAL LYMPHOCYTE FLAG 0 (0-99); FRAGMENT RBC FLAG 0 (0-99); HEMATOCRIT 21.5 % (38.0-47.0); LEFT SHIFT FLG 10 (0-99); LIPEMIA HEMOLYSIS FLAG 80 (0-99); MEAN CELL HEMOGLOBIN 28.6 pg (27.9-34.1); MEAN CELL HEMOGLOBIN CONCENTR. 31.6 g/dL (32.4-36.7); MEAN CELL VOLUME 90.3 fL (81.5-99.8); MEAN PLATELET VOLUME 9.3 fL (8.7-11.7); PLATELET CLUMPS FLAG 0 (0-99); RED BLOOD CELL COUNT 2.38 10^6/uL (4.18-5.33); RED CELL DISTRIBUTION WIDTH 13.2 % (11.5-15.2)
[2016-10-20 06:34] LABS: HEMOGLOBIN 6.8 g/dL (12.6-16.3)
[2016-10-20 06:35] LABS: PLATELET COUNT 1075 10^3/uL (150-400)
[2016-10-20] MEDS: SIMETHICONE 80 MG TAB CHEW PO SCH ×4 (08:26→19:34)
[2016-10-20] MEDS: FERROUS SULFATE 140 MG TAB.ER PO SCH (08:27)
[2016-10-20] MEDS: NICOTINE 21 MG/24 HR PATCH TD SCH (08:28)
[2016-10-20 08:59] LABS: PLATELET ESTIMATE INCREASED (ADEQ); POLYCHROMASIA 1+
[2016-10-20 09:00] LABS: HYPOCHROMIA 1+
[2016-10-20] MEDS: ENOXAPARIN 40 MG/0.4 ML SYR SC SCH (11:01)
[2016-10-20] MEDS: VANCOMYCIN 1.25 GM in D5W 250 ML IV SCH (16:49)
--- NOTE | 2016-10-20 17:05 | HOSPPROG ---
Hospitalist Progress Note Assessment/Plan: 31-year-old with a history of IV drug use is admitted with necrotizing fasciitis status post I and D in followed today by Dr. Delatorre. She has a wound VAC in place this was complicated by MRSA bacteremia. Status post I and D this morning in the OR. Wound VAC removed and she does have [address] She has minimal pain in her leg and continues to ask about going home. # necrotizing fasciitis in the right upper leg, Complicated by MRSA severe sepsis and Staph Lugdunessis from wound. MRI (personally reviewed and interpreted) Currently on IV Vanco followed by ID and General surgery. Day 14. Of antibiotics, day 8. Of vancomycin * Continue IV Vanco, length of therapy per Infectious Disease. I did discuss possibility of rehab post hospitalization depending on how long she needs to be on the IV antibiotics * Ongoing wound care here in the hospital * working on more comfortable bandaging # acute renal failure due to sepsis and Toradol and antibiotics- creatinine stable 1.4 oxygen saturations 95% on RA - cont to monitor # spontaneous miscarriage, beta HCG now negative. Will eventually need a transvaginal ultrasound to confirm complete evacuation patient has had no issues here in the hospital. # IV drug use * HIV negative * hep C positive # anemia: Low iron levels. Patient with minimal symptoms at this time will follow and add iron. If continues to drop would consider transfusion prior to discharge given her poor nutritional status. # deaf mute from , at 2 interpreters required * Disposition: Patient cannot go home on IV antibiotics given her history of methamphetamine use, and she should not go home while drains are in place and she needs ongoing wound care.- I have discussed the case with CM - working on rehab placement- they will file an APS report to improve access to dispo support - pt clearly vulnerable Subjective: alot of pain Objective: Vital Signs Temp Pulse Resp BP Pulse Ox 36.7 C 89 16 136/89 H 94 10/20/16 16:00 10/20/16 16:00 10/20/16 16:00 10/20/16 16:00 10/20/16 16:00 Laboratory Results 10/20/16 06:00 10/19/16 05:05 10/19/16 10/20/16 10/21/16 05:59 05:59 05:59 Intake Total 2490 Output Total 1575 70 Balance 915 -70 - Physical Exam Constitutional: appears nourished Eyes: anicteric sclera Ears, Nose, Mouth, Throat: moist mucous membranes Cardiovascular: regular rate and rhythym Respiratory: no respiratory distress, no rales or rhonchi Gastrointestinal: normoactive bowel sounds, soft, non-tender abdomen Genitourinary: no bladder fullness Skin: other (incisions healing well) Musculoskeletal: No asymmetric calves Neurologic: AAOx3 Psychiatric: anxious Lymph, Heme, Immunologic: no cervical LAD ICD10 Worksheet Patient Problems: Problems Problem Status Onset Leukocytosis Acute MRSA (methicillin resistant Staphylococcus aureus) Acute ~10/07/16 Right thigh pain Acute Threatened in early Acute
[2016-10-21] MEDS: LORazepam 0.5 MG TAB PO PRN (04:52)
[2016-10-21] MEDS: HYDROCODONE/APAP 5/325 TAB PO PRN ×3 (04:53→20:56)
--- NOTE | 2016-10-21 09:08 | SOAPPROG ---
SOAP Progress Note Assessment/Plan: Assessment: completely uncooperative 31 female with nec fasciitis/ wbc 29k/ temp 39+ very tender rt thigh needs debridement soon but unable to obtain consent and no apparent family or guardian this is a rapidly devastating situation that needs surgery quickly to prevent and limb loss/ even with surgery we may not save her Plan:to or as an emergency for debridement of nec fasciitis 10/07/16 19:24 10/07/16 22:25 POSTOP STABLE/ SURGICAL FINDINGS VERY UNDERWHELMING COMPARED TO CLINICAL COURSE AND MRI 10/08/16 21:39 overall better vital signs in urine output / still difficult to evaluate / wound VAC change Tuesday unless needed sooner by clinical indicators 10/16/16 11:00 WOUNDS STABLE/ AFEBRILE/ NO NEW PROBLEMS/ VAC CHANGE Tuesday10/17/16 08:45 wounds stable/ vac change in am/ wbc still 21k/ hct 10/21/16 09:07 AFEBRILE/ COMFORTABLE/ COOPERATIVE TODAY/ WOUNDS OK/ MINIMAL DRAINAGE/ PLACEMENT SOON Objective: Vital Signs Temp Pulse Resp BP Pulse Ox 36.4 C 84 16 132/66 H 96 10/21/16 07:19 10/21/16 07:19 10/21/16 07:19 10/21/16 07:19 10/21/16 07:19 Laboratory Results 10/20/16 06:00 10/19/16 05:05 10/20/16 10/21/16 10/22/16 05:59 05:59 05:59 Output Total 70 Balance -70 ICD10 Worksheet Patient Problems: Problems Problem Status Onset Leukocytosis Acute MRSA (methicillin resistant Staphylococcus aureus) Acute ~10/07/16 Right thigh pain Acute Threatened in early Acute
[2016-10-21] MEDS: ENOXAPARIN 40 MG/0.4 ML SYR SC SCH (09:24)
[2016-10-21] MEDS: NICOTINE 21 MG/24 HR PATCH TD SCH (09:24)
[2016-10-21] MEDS: FERROUS SULFATE 140 MG TAB.ER PO SCH (09:25)
[2016-10-21] MEDS: SIMETHICONE 80 MG TAB CHEW PO SCH ×3 (09:25→20:08)
[2016-10-21] MEDS: VANCOMYCIN 1.25 GM in D5W 250 ML IV SCH (13:51)
[2016-10-21] MEDS ORDERED: VANCOMYCIN 1.25 GM in D5W 250 ML IV SCH (14:00)
--- NOTE | 2016-10-21 15:53 | HOSPPROG ---
Hospitalist Progress Note Assessment/Plan: 31-year-old with a history of IV drug use is admitted with necrotizing fasciitis status post I and D in followed today by Dr. Delatorre. She has a wound VAC in place this was complicated by MRSA bacteremia. Status post I and D this morning in the OR. Wound VAC removed and she does have [address] She has minimal pain in her leg and continues to ask about going home. # necrotizing fasciitis in the right upper leg, Complicated by MRSA severe sepsis and Staph Lugdunessis from wound. Currently on IV Vanco followed by ID and General surgery. Day 14. Of antibiotics, day 9. Of vancomycin vancomycin level 7.2 this am * Continue IV Vanco- suspect will need to complete tx inpatient * Ongoing wound care here in the hospital * working on more comfortable bandaging # acute renal failure due to sepsis and Toradol and antibiotics- creatinine 1.4 oxygen saturations 95% on RA - cxr (personally reviewed and interpreted) no infiltrates - recheck in am # spontaneous miscarriage, beta HCG now negative. Will eventually need a transvaginal ultrasound to confirm complete evacuation patient has had no issues here in the hospital. # IV drug use * HIV negative * hep C positive # anemia: Low iron levels. Patient with minimal symptoms at this time will follow and add iron. If continues to drop would consider transfusion prior to discharge given her poor nutritional status. # deaf mute from , at 2 interpreters required * Disposition: Patient cannot go home on IV antibiotics given her history of methamphetamine use, and she should not go home while drains are in place and she needs ongoing wound care.- I have discussed the case with CM - not many opportunities for dispo with the patients translation and medication needs - cont inpatient care Subjective: pain improved Objective: Vital Signs Temp Pulse Resp BP Pulse Ox 36.4 C 99 14 126/74 H 96 10/21/16 15:28 10/21/16 15:28 10/21/16 15:28 10/21/16 15:28 10/21/16 15:28 Laboratory Results 10/20/16 06:00 10/19/16 05:05 10/20/16 10/21/16 10/22/16 05:59 05:59 05:59 Output Total 70 Balance -70 - Physical Exam Constitutional: appears nourished Eyes: anicteric sclera Ears, Nose, Mouth, Throat: moist mucous membranes Cardiovascular: regular rate and rhythym Respiratory: no respiratory distress Gastrointestinal: normoactive bowel sounds, soft, non-tender abdomen Genitourinary: no bladder fullness Skin: warm, normal color Musculoskeletal: No asymmetric calves Neurologic: AAOx3 Psychiatric: anxious Lymph, Heme, Immunologic: no cervical LAD ICD10 Worksheet Patient Problems: Problems Problem Status Onset Leukocytosis Acute MRSA (methicillin resistant Staphylococcus aureus) Acute ~10/07/16 Right thigh pain Acute Threatened in early Acute
--- NOTE | 2016-10-21 16:01 | PCMIDPN ---
Assessment/Plan: #Right thigh necrotizing fasciitis status post multiple debridements: Operative cultures show Staphylococcus lugdunensis. Translators not available at time of my visit but Dr. Gonzalez reports wound appear healthy # MRSA bacteremia: blood cx negative since 10/12 Plan 1) 2 weeks IV antibiotics through 10/26/16 followed by 2 weeks PO antibiotics 2) Adjust vancomycin dose up for low trough 3) Monitor in hospital until completes IV antibiotics 4) some irregularity of dosing of vancomycin. No Cr since 10/19. Check Cr in AM and decide if need another trough. Adjust dosing of vancomycin to afternoon. 10/07 blood culture 1/ MRSA 10/12 blood culture 1 set no growth today 10/07 surgical cultures Staphylococcus lugdunensis 10/13 C diff negative meds vancomycin 1.25gm IV daily (skipped dose 10/20 for trough 18), #03/19 Objective: Vital Signs Temp Pulse Resp BP Pulse Ox 36.4 C 99 14 126/74 H 96 10/21/16 15:28 10/21/16 15:28 10/21/16 15:28 10/21/16 15:28 10/21/16 15:28 Laboratory Results 10/20/16 06:00 10/19/16 05:05 10/20/16 10/21/16 10/22/16 05:59 05:59 05:59 Output Total 70 Balance -70 ESR 27 MM/HR (0-20) H 10/07/16 06:10 C-Reactive Protein 255.0 mg/L (<10.0) H 10/07/16 06:10 AF PE Saw patient ambulating the hallways, smiling, breathing easy ICD10 Worksheet Patient Problems: Problems Problem Status Onset Leukocytosis Acute MRSA (methicillin resistant Staphylococcus aureus) Acute ~10/07/16 Right thigh pain Acute Threatened in early Acute
[2016-10-21] MEDS: ZOLPIDEM TARTRATE 5 MG TAB PO PRN (21:01)
[2016-10-22] MEDS: HYDROCODONE/APAP 5/325 TAB PO PRN ×4 (01:05→21:27)
[2016-10-22 05:17] LABS: ALANINE AMINOTRANSFERASE 28 IU/L (9-52); ALBUMIN 3.3 g/dL (3.5-5.0); ALKALINE PHOSPHATASE 89 IU/L (38-126); ANION GAP 8 mEq/L (8-16); ASPARTATE AMINOTRANSFERASE 16 IU/L (14-46); BILIRUBIN,TOTAL 0.3 mg/dL (0.1-1.4); CALCIUM 9.1 mg/dL (8.5-10.4); CARBON DIOXIDE 28 mEq/l (22-31); CHLORIDE 105 mEq/L (97-110); CREATININE 1.1 mg/dL (0.6-1.0); GLOMERULAR FILTRATION RATE 59; GLUCOSE 88 mg/dL (70-100); SODIUM 141 mEq/L (134-144); TOTAL PROTEIN 6.8 g/dL (6.3-8.2)
[2016-10-22] MEDS: SIMETHICONE 80 MG TAB CHEW PO SCH ×4 (07:58→21:27)
[2016-10-22] MEDS: ENOXAPARIN 40 MG/0.4 ML SYR SC SCH (07:58)
[2016-10-22] MEDS: FERROUS SULFATE 140 MG TAB.ER PO SCH (08:02)
[2016-10-22] MEDS: NICOTINE 21 MG/24 HR PATCH TD SCH (08:04)
--- NOTE | 2016-10-22 12:56 | HOSPPROG ---
Hospitalist Progress Note Assessment/Plan: 31-year-old with a history of IV drug use is admitted with necrotizing fasciitis status post I and D in followed today by Dr. Delatorre. She has a wound VAC in place this was complicated by MRSA bacteremia. Status post I and D this morning in the OR. Wound VAC removed and she does have [address] She has minimal pain in her leg and continues to ask about going home. # Necrotizing fasciitis in the right upper leg, Complicated by MRSA severe sepsis and Staph Lugdunessis from wound. Currently on IV Vanco followed by ID and General surgery. Day 15. Of antibiotics, day 10 Of vancomycin vancomycin level 7.2 yesterday -Continue IV Vanco- suspect will need to complete tx inpatient -Ongoing wound care here in the hospital # acute renal failure due to sepsis and Toradol and antibiotics- creatinine 1.4 -> 1.1 this am oxygen saturations 95% on RA - cxr (personally reviewed and interpreted) no infiltrates - continue to follow # spontaneous miscarriage, beta HCG now negative. Will eventually need a transvaginal ultrasound to confirm complete evacuation patient has had no issues here in the hospital. # IV drug use * HIV negative * hep C positive # anemia: Low iron levels. - cont iron. - recheck monique # deaf mute from , at 2 interpreters required * Disposition: Patient cannot go home on IV antibiotics given her history of methamphetamine use, and she should not go home while drains are in place and she needs ongoing wound care.- I have discussed the case with CM- will need to keep pt here to complete antibiotics- will need to extend translation services while inpt Subjective: nauseated Objective: Vital Signs Temp Pulse Resp BP Pulse Ox 36.6 C 95 14 133/85 H 96 10/22/16 11:51 10/22/16 11:51 10/22/16 11:51 10/22/16 11:51 10/22/16 11:51 Laboratory Results 10/20/16 06:00 10/22/16 04:30 10/21/16 10/22/16 10/23/16 05:59 05:59 05:59 Intake Total 700 Output Total 15 Balance 700 -15 - Physical Exam Constitutional: cachectic Eyes: anicteric sclera Ears, Nose, Mouth, Throat: dry mucous membranes Cardiovascular: regular rate and rhythym Respiratory: no respiratory distress Gastrointestinal: normoactive bowel sounds Genitourinary: no bladder fullness Skin: warm, normal color Musculoskeletal: No asymmetric calves Neurologic: AAOx3 Psychiatric: anxious Lymph, Heme, Immunologic: no cervical LAD ICD10 Worksheet Patient Problems: Problems Problem Status Onset Leukocytosis Acute MRSA (methicillin resistant Staphylococcus aureus) Acute ~10/07/16 Right thigh pain Acute Threatened in early Acute
[2016-10-22] MEDS: LORazepam 0.5 MG TAB PO PRN ×2 (13:21→21:27)
[2016-10-22] MEDS: VANCOMYCIN 1.25 GM in D5W 250 ML IV SCH (14:19)
--- NOTE | 2016-10-22 19:33 | GOP ---
[f rep st] OPERATIVE REPORT DATE OF OPERATION: 10/22/2016 SURGEON: Ezra Delatorre MD ANESTHESIOLOGIST: Royce Sánchez DO PREOPERATIVE DIAGNOSIS: Right thigh pain and infection; possible necrotizing fasciitis. POSTOPERATIVE DIAGNOSIS: Right thigh pain and infection; possible necrotizing fasciitis. PROCEDURE PERFORMED: Incision, drainage, and excisional debridement of medial and lateral compartme nts of the right thigh with wound VAC placement. FINDINGS: Patient was found have thin serous purulent fluid throughout all compartments of her medi al and lateral thigh; however, her muscle was all good and viable on both sides of her thigh, and th e fascia was largely intact. DESCRIPTION OF PROCEDURE: Patient was taken to the operating room, where she received a satisfactor y general endotracheal anesthesia by Dr. Sánchez. She was placed in the supine position and prepped a nd draped in the usual sterile fashion. A longitudinal incision was made in the medial aspect of th e left thigh, and a marked amount of edema in the subcutaneous tissue and the fascia was encountered ; however, the fascia was intact and adherent. Muscle compartments were opened up, and they were ea sily , but because of edema and cloudy thin fluid among the layers, this was all washed out and irrigated. The muscles, themselves, were intact. Any hint of necrotic tissue was debrided skylar y, including in the subcutaneous tissue. A similar incision was made in the lateral aspect of the r ight thigh and hip, and again encountered similar findings with thin watery fluid in the interstices of the muscles, but no necrotic muscle or necrotic fascia. Both wounds were thoroughly irrigated a nd debrided and then covered with wound VAC's. They were infiltrated with 0.5% Marcaine as well. S he tolerated the procedure well. Blood loss was less than 75 cc. There were no complications. Jovani en to the recovery room in good condition. /[id number]/MODL
[2016-10-23 05:34] LABS: LIPEMIA HEMOLYSIS FLAG 80 (0-99); MEAN CELL HEMOGLOBIN 28.8 pg (27.9-34.1); MEAN CELL VOLUME 89.9 fL (81.5-99.8); RED BLOOD CELL COUNT 2.78 10^6/uL (4.18-5.33)
[2016-10-23 05:36] LABS: PLATELET COUNT 1077 10^3/uL (150-400)
[2016-10-23 06:03] LABS: PLATELET ESTIMATE INCREASED (ADEQ)
--- NOTE | 2016-10-23 08:34 | SOAPPROG ---
SOAP Progress Note Assessment/Plan: Assessment/Plan: - RLE closed, drains removed. Dressings taken down today and are c/d/i., continue to change those daily as needed. Cont IV abx. No new recommendations from surgery standpoint. 10/15/16 07:48 10/23/16 08:33 Subjective: Actually seems somewhat happy today Objective: Vital Signs Temp Pulse Resp BP Pulse Ox 36.4 C 95 16 125/64 H 96 10/23/16 08:00 10/23/16 08:00 10/23/16 08:00 10/23/16 08:00 10/23/16 08:00 Laboratory Results 10/23/16 05:15 10/22/16 04:30 10/22/16 10/23/16 10/24/16 05:59 05:59 05:59 Intake Total 700 Output Total 15 Balance 700 -15 ICD10 Worksheet Patient Problems: Problems Problem Status Onset Leukocytosis Acute MRSA (methicillin resistant Staphylococcus aureus) Acute ~10/07/16 Right thigh pain Acute Threatened in early Acute
[2016-10-23] MEDS: ENOXAPARIN 40 MG/0.4 ML SYR SC SCH (08:44)
[2016-10-23] MEDS: FERROUS SULFATE 140 MG TAB.ER PO SCH (08:44)
[2016-10-23] MEDS: NICOTINE 21 MG/24 HR PATCH TD SCH (08:45)
[2016-10-23] MEDS: SIMETHICONE 80 MG TAB CHEW PO SCH ×2 (08:46→12:20)
[2016-10-23] MEDS: VANCOMYCIN 1.25 GM in D5W 250 ML IV SCH (13:15)
--- NOTE | 2016-10-23 13:56 | HOSPPROG ---
Hospitalist Progress Note Assessment/Plan: 31-year-old with a history of IV drug use is admitted with necrotizing fasciitis status post I and D in followed today by Dr. Delatorre. She has a wound VAC in place this was complicated by MRSA bacteremia. Status post I and D this morning in the OR. Wound VAC removed and she does have [address] She has minimal pain in her leg and continues to ask about going home. # Necrotizing fasciitis in the right upper leg, Complicated by MRSA severe sepsis and Staph Lugdunessis from wound. MRI Lumbar (personally reviewed and interpreted) no acute abnormalities Currently on IV Vanco followed by ID and General surgery. Day 15. Of antibiotics, day 11 Of vancomycin vancomycin level 7.2 last checked - pain improved today - LIGIA drains removed yesterday -Continue IV Vanco- suspect will need to complete tx inpatient -Ongoing wound care here in the hospital # Reactive thrombocytosis - plt 1077 today - discussed with MARIA TERESA Mora - cont prophylactic enoxaparin - will start ASA now # acute renal failure due to sepsis and Toradol and antibiotics- creatinine 1.4 -> 1.1 oxygen saturations 95% on RA - cxr (personally reviewed and interpreted) no infiltrates - recheck in am # spontaneous miscarriage, beta HCG now negative. Will eventually need a transvaginal ultrasound to confirm complete evacuation patient has had no issues here in the hospital. # IV drug use * HIV negative * hep C positive # anemia: Low iron levels. - cont iron. - recheck monique # deaf mute from , at 2 interpreters required * Disposition: Patient cannot go home on IV antibiotics given her history of methamphetamine use, and she should not go home while drains are in place and she needs ongoing wound care.- I have discussed the case with HEME - we will prophylax against thrombosis with ASA and enoxaparin Subjective: pain improved - tolerated more PO Objective: Vital Signs Temp Pulse Resp BP Pulse Ox 36.5 C 86 16 123/72 H 97 10/23/16 12:20 10/23/16 12:20 10/23/16 12:20 10/23/16 12:20 10/23/16 12:20 Laboratory Results 10/23/16 05:15 10/22/16 04:30 10/22/16 10/23/16 10/24/16 05:59 05:59 05:59 Intake Total 700 Output Total 15 Balance 700 -15 - Physical Exam Constitutional: cachectic Eyes: anicteric sclera Ears, Nose, Mouth, Throat: moist mucous membranes Cardiovascular: regular rate and rhythym Respiratory: no respiratory distress, no rales or rhonchi Gastrointestinal: normoactive bowel sounds, soft, non-tender abdomen Genitourinary: no bladder fullness Skin: warm, normal color Musculoskeletal: No asymmetric calves Neurologic: AAOx3 Psychiatric: interacting appropriately, anxious Lymph, Heme, Immunologic: no cervical LAD ICD10 Worksheet Patient Problems: Problems Problem Status Onset Leukocytosis Acute MRSA (methicillin resistant Staphylococcus aureus) Acute ~10/07/16 Right thigh pain Acute Threatened in early Acute
[2016-10-23] MEDS: HYDROCODONE/APAP 5/325 TAB PO PRN ×2 (16:06→21:36)
[2016-10-23] MEDS: ASPIRIN EC 325 MG TAB PO SCH (16:06)
[2016-10-23] MEDS: LORazepam 0.5 MG TAB PO PRN (21:35)
[2016-10-24 07:50] LABS: HEMOGLOBIN 8.2 g/dL (12.6-16.3); LIPEMIA HEMOLYSIS FLAG 80 (0-99); MEAN CELL HEMOGLOBIN 29.3 pg (27.9-34.1); MEAN CELL HEMOGLOBIN CONCENTR. 32.8 g/dL (32.4-36.7); MEAN CELL VOLUME 89.3 fL (81.5-99.8); PLATELET CLUMPS FLAG 10 (0-99); RED CELL DISTRIBUTION WIDTH 13.2 % (11.5-15.2)
[2016-10-24 08:14] LABS: ANION GAP 11 mEq/L (8-16); CALCIUM 9.5 mg/dL (8.5-10.4); CARBON DIOXIDE 24 mEq/l (22-31); CHLORIDE 105 mEq/L (97-110); CREATININE 1.1 mg/dL (0.6-1.0); GLOMERULAR FILTRATION RATE 59; GLUCOSE 94 mg/dL (70-100); POTASSIUM 4.6 mEq/L (3.5-5.2); SODIUM 140 mEq/L (134-144)
[2016-10-24 08:32] LABS: PLATELET COUNT 970 10^3/uL (150-400)
[2016-10-24] MEDS: ASPIRIN EC 325 MG TAB PO SCH (09:59)
[2016-10-24] MEDS: FERROUS SULFATE 140 MG TAB.ER PO SCH (09:59)
[2016-10-24] MEDS: ENOXAPARIN 40 MG/0.4 ML SYR SC SCH (10:47)
[2016-10-24 11:24] LABS: PLATELET ESTIMATE INCREASED (ADEQ)
--- NOTE | 2016-10-24 13:15 | HOSPPROG ---
Hospitalist Progress Note Assessment/Plan: 31-year-old with a history of IV drug use is admitted with necrotizing fasciitis status post I and D in followed today by Dr. Delatorre. She has a wound VAC in place this was complicated by MRSA bacteremia. Status post I and D this morning in the OR. Wound VAC removed and she does have [address] She has minimal pain in her leg and continues to ask about going home. # Necrotizing fasciitis in the right upper leg, Complicated by MRSA severe sepsis and Staph Lugdunessis from wound. MRI Lumbar - no acute abnormalities MRI LE (personally reviewed and interpreted) extensive medial, lateral, posterior myositis and fascitis Currently on IV Vanco followed by ID and General surgery-day 12 Of vancomycin vancomycin level 7.2 last checked - pain improved today - LIGIA drains removed yesterday -Continue IV Vanco- suspect will need to complete tx inpatient -Ongoing wound care here in the hospital # Reactive thrombocytosis - plt 1077-> 970 today - discussed with HEME Dr. Mora - cont prophylactic enoxaparin - will cont ASA for now # acute renal failure due to sepsis and Toradol and antibiotics- creatinine 1.4 -> 1.1 this am oxygen saturations 95% on RA - cxr -no infiltrates - recheck in am # spontaneous miscarriage, beta HCG now negative. Will eventually need a transvaginal ultrasound to confirm complete evacuation patient has had no issues here in the hospital. # IV drug use - HIV negative - hep C positive # anemia: Low iron levels. - cont iron. - recheck monique # deaf mute from , at 2 interpreters required * Disposition: Patient cannot go home on IV antibiotics given her history of methamphetamine use, and she should not go home while drains are in place and she needs ongoing wound care.- I have discussed the case with ID - anticipate dc on 10/26 with PO abx Subjective: improved appetite Objective: Vital Signs Temp Pulse Resp BP Pulse Ox 36.1 C 113 H 14 119/79 98 10/24/16 12:14 10/24/16 12:14 10/24/16 12:14 10/24/16 12:14 10/24/16 12:14 Laboratory Results 10/24/16 05:05 10/24/16 05:00 05/20/17 05/21/17 05/22/17 05:59 05:59 05:59 Output Total 15 Balance -15 - Physical Exam Constitutional: appears nourished Eyes: anicteric sclera Ears, Nose, Mouth, Throat: moist mucous membranes Cardiovascular: regular rate and rhythym Respiratory: no respiratory distress Gastrointestinal: normoactive bowel sounds, soft, non-tender abdomen Genitourinary: no bladder fullness Skin: warm, normal color, other (incisions healing well) Musculoskeletal: No asymmetric calves Neurologic: AAOx3 Psychiatric: interacting appropriately, not anxious Lymph, Heme, Immunologic: no cervical LAD ICD10 Worksheet Patient Problems: Problems Problem Status Onset Leukocytosis Acute MRSA (methicillin resistant Staphylococcus aureus) Acute ~10/07/16 Right thigh pain Acute Threatened in early Acute
[2016-10-24] MEDS: ACETAMINOPHEN 325 MG TAB PO PRN (13:50)
[2016-10-24] MEDS ORDERED: SIMETHICONE 80 MG TAB CHEW PO PRN (13:58)
[2016-10-24] MEDS: VANCOMYCIN 1.25 GM in D5W 250 ML IV SCH (14:02)
[2016-10-24] MEDS: NICOTINE 21 MG/24 HR PATCH TD SCH (17:04)
[2016-10-24] MEDS ORDERED: SIMETHICONE 80 MG TAB CHEW PO SCH (19:00)
[2016-10-24] MEDS: LORazepam 0.5 MG TAB PO PRN (20:32)
[2016-10-24] MEDS: HYDROCODONE/APAP 5/325 TAB PO PRN (20:32)
[2016-10-25 05:31] LABS: HEMATOCRIT 25.4 % (38.0-47.0); HEMOGLOBIN 8.1 g/dL (12.6-16.3); MEAN CELL HEMOGLOBIN CONCENTR. 31.9 g/dL (32.4-36.7); RED BLOOD CELL COUNT 2.79 10^6/uL (4.18-5.33); RED CELL DISTRIBUTION WIDTH 13.4 % (11.5-15.2)
[2016-10-25] MEDS: FERROUS SULFATE 140 MG TAB.ER PO SCH (10:01)
[2016-10-25] MEDS: ASPIRIN EC 325 MG TAB PO SCH (10:01)
[2016-10-25] MEDS: ENOXAPARIN 40 MG/0.4 ML SYR SC SCH (10:02)
[2016-10-25] MEDS: HYDROCODONE/APAP 5/325 TAB PO PRN ×2 (10:07→19:10)
[2016-10-25] MEDS: LORazepam 0.5 MG TAB PO PRN ×2 (10:09→20:08)
[2016-10-25] MEDS: NICOTINE 21 MG/24 HR PATCH TD SCH (10:59)
[2016-10-25] MEDS: VANCOMYCIN 1.25 GM in D5W 250 ML IV SCH (14:55)
--- NOTE | 2016-10-25 15:56 | HOSPPROG ---
Hospitalist Progress Note Assessment/Plan: 31 year-old female new to my care today with a history of IV drug use is admitted with necrotizing fasciitis status post I and D in followed today by Dr. Delatorre. She has a wound VAC in place this was complicated by MRSA bacteremia. Status post I and D this morning in the OR. Wound VAC removed and she does have [address] She has minimal pain in her leg and continues to ask about going home. # Necrotizing fasciitis in the right upper leg, Complicated by MRSA severe sepsis and Staph Lugdunessis from wound. MRI Lumbar - no acute abnormalities MRI LE (personally reviewed and interpreted) extensive medial, lateral, posterior myositis and fascitis Currently on IV Vanco followed by ID and General surgery-day 13 Of vancomycin pain improved / LIGIA drains removed -Continue IV Vanco- suspect will need to complete tx inpatient -Ongoing wound care here in the hospital # Reactive thrombocytosis (improving) - cont prophylactic enoxaparin - will cont ASA for now # acute renal failure due to sepsis and Toradol and antibiotics- creatinine 1.4 -> 1.1 (stable) oxygen saturations 95% on RA - cxr -no infiltrates # spontaneous miscarriage, beta HCG now negative. Will eventually need a transvaginal ultrasound to confirm complete evacuation patient has had no issues here in the hospital. # IV drug use - HIV negative - hep C positive # anemia: Low iron levels. - cont iron. - recheck monique # deaf mute from , at 2 interpreters required * Disposition: Patient cannot go home on IV antibiotics given her history of methamphetamine use, and she should not go home while drains are in place and she needs ongoing wound care.- I have discussed the case with ID - anticipate dc on 10/26 with PO abx. Will need outpatient followup for Hep C Subjective: Patient was seen with ASL interpreters present. She denies any pain. She denies any fevers or chills. Her wounds are healing well. She does want to go home with her friend Lee plans to maintain sobriety. Objective: Vital Signs Temp Pulse Resp BP Pulse Ox 36.7 C 88 14 118/67 95 10/25/16 12:00 10/25/16 12:00 10/25/16 12:00 10/25/16 04:00 10/25/16 12:00 Laboratory Results 10/25/16 05:05 10/24/16 05:00 10/24/16 10/25/16 10/26/16 05:59 05:59 05:59 Intake Total 1000 500 Balance 1000 500 - Physical Exam Constitutional: no apparent distress, appears nourished, not in pain Cardiovascular: regular rate and rhythym, no murmur, rub, or gallop Respiratory: no respiratory distress, no rales or rhonchi, clear to auscultation Gastrointestinal: normoactive bowel sounds, soft, non-tender abdomen, no palpable masses, No guarding, No rebound Neurologic: AAOx3, No weakness, No numbness, No facial droop ICD10 Worksheet Patient Problems: Problems Problem Status Onset MRSA (methicillin resistant Staphylococcus aureus) Acute ~10/07/16 Right thigh pain Acute Leukocytosis Acute Threatened in early Acute
[2016-10-26 09:04] VITALS: BP 135/80; PULSE 101; RESP 16; TEMP 98; O2SAT 98
[2016-10-26] MEDS: HYDROCODONE/APAP 5/325 TAB PO PRN (09:19)
[2016-10-26] MEDS: FERROUS SULFATE 140 MG TAB.ER PO SCH (09:19)
[2016-10-26] MEDS: ASPIRIN EC 325 MG TAB PO SCH (09:19)
[2016-10-26] MEDS: ENOXAPARIN 40 MG/0.4 ML SYR SC SCH (09:20)
[2016-10-26] MEDS: NICOTINE 21 MG/24 HR PATCH TD SCH (09:21)
[2016-10-26] MEDS: VANCOMYCIN 1.25 GM in D5W 250 ML IV SCH (13:03)
--- NOTE | 2016-10-26 13:45 | GDS ---
[f rep st] DISCHARGE SUMMARY DISCHARGE DIAGNOSES: 1. Necrotizing fasciitis of the right upper leg, complicated by methicillin-resistant Staphylococcu s aureus, severe sepsis and staph lugdunensis. 2. Reactive thrombocytosis. 3. Acute renal failure due to sepsis, improved. 4. Spontaneous miscarriage. 5. IV drug abuse. 6. Hepatitis C positive. 7. Iron deficiency anemia. 8. Deaf and mute from . CONSULTANTS: Dr. Ezra Delatorre, General Surgery, [facility]. HOSPITAL COURSE AND STAY BY PROBLEM: 1. Necrotizing fasciitis: The patient was admitted to the hospital, where she was seen by Infectio us Disease, who started her on IV vancomycin, clindamycin, and Zosyn. She was taken to the operatin g room on 10/07/[address] Delatorre, where she had an I and D and debridement of her medial and latera l compartments of the thigh. She was taken back to the operating room on 10/11/2016, where she had a washout and partial closure with wound VAC placement. She was, again, taken to the operating room on 10/14/2016, 10/18/2016, and 10/22/2016 for continued wound debridement and flap closure. 2. The patient has had a prolonged hospital course to complete 2 weeks of antibiotics, since she wa s not safe to discharge with a PICC line given her history of IV substance abuse. 3. acute renal failure: Patient presented with sepsis and a creatinine of up to 1.7 on 10/13/2016, which has decreased to 1.1 on day of discharge. She will need further monitoring of her renal func tion on an outpatient basis. 4. Hepatitis C antibody positive. Patient will need further outpatient treatment for her hepatitis C as indicated. Hepatitis C viral load was ordered but was not completed. 5. Spontaneous miscarriage: Patient will need an outpatient transvaginal ultrasound to confirm com plete evacuation at some point after leaving the hospital. PHYSICAL EXAM: VITAL SIGNS: On day of discharge, blood pressure 135/80, pulse of 101, respiratory rate 16, O2 saturation 98% on room air, temperature afebrile. GENERAL: In no acute distress. HEAR T: S1 and S2. LUNGS: Clear. ABDOMEN: Soft. EXTREMITIES: No edema. PROCEDURES: Done this hospital stay: Patient was taken to the operating room on 10/07/2016, 2016, 10/14/2016, 10/18/2016, and 10/22/2016 for debridement and closure of her necrotizing fasciiti s. Diagnostics done this hospital stay: A lumbar spine MRI done 10/07/2016, refer to report. Lower extremity MRI done 10/07/2016, refer to report. DISCHARGE MEDICATIONS: Please refer to discharge medication reconciliation in [facility] for details. DISCHARGE INSTRUCTIONS: The patient will be discharged from the hospital, where once again she shou ld have further followup of her hepatitis C. She will need to complete 2 weeks of oral doxycycline. She should follow up with Dr. Delatorre for suture removal in 2 weeks. She should also have an outpat ient pelvic ultrasound to ensure complete evacuation of her uterus. Greater than 30 minutes were spent on the discharge of this patient. /[id number]/MODL
== END 2016-10-26 16:02 | disposition home or self-care (01) | DRG 853 ==
LOC: F2N 11:50 → F3E 10-12 23:32
PROVIDERS: ADMIT Internal Medicine; ATTEND Internal Medicine
PROC: 0JBL0ZX Excision of Right Upper Leg Subcutaneous Tissue and Fascia, Open Approach, Diagnostic (ICD-10-PCS; 2016-10-07)
PROC: 2W1NX6Z Compression of Right Upper Leg using Pressure Dressing (ICD-10-PCS; 2016-10-07)
PROC: 3E1038Z Irrigation of Skin and Mucous Membranes using Irrigating Substance, Percutaneous Approach (ICD-10-PCS; 2016-10-07)
PROC: 3E1038Z Irrigation of Skin and Mucous Membranes using Irrigating Substance, Percutaneous Approach (ICD-10-PCS; 2016-10-11)
PROC: 2W1NX6Z Compression of Right Upper Leg using Pressure Dressing (ICD-10-PCS; 2016-10-11)
PROC: 3E1038Z Irrigation of Skin and Mucous Membranes using Irrigating Substance, Percutaneous Approach (ICD-10-PCS; 2016-10-18 09:15)
PROC: 0HDHXZZ Extraction of Right Upper Leg Skin, External Approach (ICD-10-PCS; 2016-10-18 09:15)
PROC: 0HXHXZZ Transfer Right Upper Leg Skin, External Approach (ICD-10-PCS; 2016-10-18 09:15)
PROC: 2W1NX6Z Compression of Right Upper Leg using Pressure Dressing (ICD-10-PCS; principal; 2016-10-22)
PROC: 0KBQ0ZZ Excision of Right Upper Leg Muscle, Open Approach (ICD-10-PCS; principal; 2016-10-22)
DX: A41.02 Sepsis due to Methicillin resistant Staphylococcus aureus (principal); R65.20 Severe sepsis without septic shock; M72.6 Necrotizing fasciitis; O03.9 Complete or unspecified spontaneous abortion without complication; N17.9 Acute kidney failure, unspecified; D62 Acute posthemorrhagic anemia; E87.6 Hypokalemia; F15.10 Other stimulant abuse, uncomplicated; B19.20 Unspecified viral hepatitis C without hepatic coma; D47.3 Essential (hemorrhagic) thrombocythemia; F17.210 Nicotine dependence, cigarettes, uncomplicated; H91.3 Deaf nonspeaking, not elsewhere classified; Z59.0 Homelessness
CPT/HCPCS: 80307; 86708-90; 86709-90; 92507-GN; 92523-GN; 96365; 96374; 97116-GP; 97163-GP; 97167-GO; 97535-GO; G0472; G0480; J1100; J1170; J1642; J1650; J1885; J2001; J2060; J2250; J2370; J2405; J2543; J2704; J3010; J3370; J3475

== ENCOUNTER → 2017-05-23 | Outpatient (CLI) | payer MEDICAID | LOC: FIMAGING 11:38 | PROVIDERS: ATTEND Family Medicine | DX: O98.412 Viral hepatitis complicating pregnancy, second trimester (principal); O99.332 Smoking (tobacco) complicating pregnancy, second trimester; H90.5 Unspecified sensorineural hearing loss; Z87.59 Personal history of other complications of pregnancy, childbirth and the puerperium; Z3A.22 22 weeks gestation of pregnancy ==

== ENCOUNTER 2017-10-27 11:35 | Emergency (ER) | payer MEDICAID ==
[2017-10-27] MEDS ORDERED: AMOXICILLIN/CLAVULANATE POT 875/125 MG TAB PO ONE (13:15)
[2017-10-27] MEDS ORDERED: BENZOCAINE UNIT DOSE SPRAY HURRICAINE MM ONE (13:15)
--- NOTE | 2017-10-27 13:17 | EDPHY ---
H & P Smoking Status: Current every day smoker Time Seen by Provider: 10/27/17 13:14 HPI/ROS: CHIEF COMPLAINT: Dental pain, facial pain HISTORY OF PRESENT ILLNESS: Patient presents with complaints of 2-3 day history of right upper dental and facial pain. Gradual onset. Constant duration. She is evaluated by her primary care physician yesterday at [facility]. She was prescribed ibuprofen and penicillin VK. She is taking this with no improvement. She woke this morning with worsening pain and swelling. No fever. No chest pain. No difficulty breathing or swelling. No cough. No trauma or injury. She has not seen a dentist in over a year but was scheduled to see 1 later next week. No other associated complaints or modifying factors. HPI obtained with the ASL multimedia instructional designer at bedside. MEDICAL/SURGICAL/SOCIAL HISTORY: Uncomplicated. Daily smoker. REVIEW OF SYSTEMS: Ten systems reviewed and are negative unless otherwise noted in the HPI EXAMINATION General Appearance: Alert, no distress Head: normocephalic, atraumatic ENT: Poor dentition. There is a 1.5 cm abscess in the mucosa just above teeth 4 and 5. No drainage. Cardiovascular: Pulses normal throughout. Brisk cap refill Neurological: A&O, sensory symmetric, strength symmetric Skin: Warm and dry, no rash. No lesions of the palms of the hands or fingernails. Extremities: Nontender, no pedal edema DIFFERENTIAL DIAGNOSES: Including but not limited to dental abscess, dental infection, pulpitis MDM: 1:15 p.m. Dental abscess that needs to be incised and drained. She is in no acute distress vital signs stable. I will administer a dental block, performed the drainage and transition her from penicillin Augmentin. 2:00 p.m. Incision drainage performed without difficulty. Patient tolerated the procedure well after a dental block. I was able to express 3 mL of purulence. I then placed a gauze packing. We discuss salt water rinses and transition to Augmentin from her previous care. We discuss definitive care with her dentist as scheduled. We discussed ED precautions and short course of pain medication. PROCEDURE: Incision and Drainage Consent: Verbal Location: Right maxillary mucosa Length: 1.5 cm Complexity: Simple Anesthesia: Dental block Procedure description: After good anesthesia the area was irrigated and incised with 11 blade. There was 3 mL of purulence expressed without difficulty. Tolerated well. No complication Expressed: 3 mL purulent Wound care: Salt water rinses daily Follow-up: 2 days wound check SUPERVISION: This patient was independently evaluated without direct involvement of or examination by the attending physician. ED Precautions: Worsening pain. Erythema, edema, cyanosis, pallor, paresthesia or anesthesia. Examination, procedure and medical decision making performed and discussed with pediatric anesthesiologist at bedside (Devon Arredondo) Constitutional: Initial Vital Signs Temperature (C) 36.4 C 10/27/17 11:41 Heart Rate 109 H 10/27/17 11:41 Respiratory Rate 18 10/27/17 11:41 Blood Pressure 116/69 10/27/17 11:41 O2 Sat (%) 94 10/27/17 11:41 O2 Delivery Mode Room Air Allergies/Adverse Reactions: chicken derived Allergy (Mild, Verified 10/27/17 11:41) oranges Allergy (Uncoded 10/07/16 06:18) Home Medications: Medication Instructions Recorded Amoxicillin/Clavulanate Pot 875 mg PO BID #20 tab 10/27/17 [Augmentin 875 MG TAB (*)] oxyCODONE HCL/ACETAMINOPHEN 1 each PO Q4-6PRN PRN #7 tablet 10/27/17 [Percocet 5-325 mg Tablet] MDM/Departure - MDM Medications Given: Discontinued Medications Amoxicillin/Clavulanate Potassium (Augmentin 875mg) 875 mg PO EDNOW ONE PRN Reason: Protocol Stop: 10/27/17 13:16 Last Admin: 10/27/17 14:06 Dose: 875 mg Benzocaine (Hurricaine [place]) 1 each MM EDNOW ONE Stop: 10/27/17 13:16 Last Admin: 10/27/17 13:15 Dose: 1 each ED Course/Re-evaluation: I did not see this patient while she was in the emergency department. However her care was discussed with the PA while the patient was in the department. I agree with treatment plan and management (Franco Cobian) - Depart Disposition: Home, Routine, Self-Care Clinical Impression: Dental abscess Condition: Good Instructions: Dental Abscess (ED) Additional Instructions: 1. Salt water rinses 3 times daily 2. Antibiotics as prescribed to completion 3. Pain medication as prescribed as needed 4. Avoid smoking 5. Definitive care with dentist as scheduled 6. ED precautions as discussed Prescriptions: Amoxicillin/Clavulanate Pot [Augmentin 875 MG TAB (*)] 875 mg PO BID #20 tab oxyCODONE HCL/ACETAMINOPHEN [Percocet 5-325 mg Tablet] 1 each PO Q4-6PRN PRN #7 tablet PRN Reason: Pain, Breakthrough Referrals: [facility],. [Clinic] - As per Instructions
[2017-10-27 14:13] VITALS: BP 118/71
== END 2017-10-27 14:12 | disposition home or self-care (01) ==
PROC: 0N9R0ZZ Drainage of Maxilla, Open Approach (ICD-10-PCS; principal; 2017-10-27)
DX: K04.7 Periapical abscess without sinus (principal); F17.200 Nicotine dependence, unspecified, uncomplicated

== ENCOUNTER 2018-10-16 07:21 | Emergency (ER) | payer SELFPAY ==
[~2018-10-16 07:21] MED LIST: CEPHALEXIN 500 MG CAP PO SCH
[2018-10-16] MEDS ORDERED: NS 1,000 ML IV ONE (07:46)
--- NOTE | 2018-10-16 07:49 | EDPHY ---
H & P Stated Complaint: Pt c/0 L inguinal pn, exac by breathing, with burning urination x2D Time Seen by Provider: 10/16/18 07:28 HPI/ROS: CHIEF COMPLAINT: Left flank pain, dysuria HISTORY OF PRESENT ILLNESS: The patient presents the ED with 2 days of acute left flank pain and dysuria. The patient has a history of mild to moderate symptoms occurring intermittently over the past 2 months. The patient has not had any workup of the condition. The patient is deaf and history was obtained through the analog design engineer. The patient denies any vomiting or diarrhea. She denies fever, cough or congestion. Past abdominal surgical history is significant for and hernia repair. The patient takes no regular medications. The patient denies any right-sided complaints of abdominal pain. REVIEW OF SYSTEMS: A comprehensive 10 point review of systems is otherwise negative aside from elements mentioned in the history of present illness. Source: Patient Exam Limitations: No limitations - Personal History Current Tetanus/Diphtheria Vaccine: Yes Tetanus Vaccine Date: < 10 years - Medical/Surgical History Hx Asthma: No Hx Chronic Respiratory Disease: No Hx Diabetes: No Hx Cardiac Disease: No Hx Renal Disease: No Hx Cirrhosis: No Hx Alcoholism: No Hx HIV/AIDS: No Hx Splenectomy or Spleen Trauma: No Other PMH: DEAF - Social History Smoking Status: Current every day smoker - Physical Exam Exam: General Appearance: Alert, no distress Eyes: Pupils equal and round no pallor or injection ENT, Mouth: Mucous membranes moist Respiratory: There are no retractions, lungs are clear to auscultation Cardiovascular: Regular rate and rhythm Gastrointestinal: Tenderness to palpation left mid quadrant, left CVA tenderness noted Neurological: 5/5 strength all 4 extremities Skin: Warm and dry, no rashes Musculoskeletal: Neck is supple nontender Extremities: symmetrical, full range of motion Constitutional: Initial Vital Signs Temperature (C) 36.5 C 10/16/18 07:26 Heart Rate 102 H 10/16/18 07:26 Respiratory Rate 18 10/16/18 07:26 Blood Pressure 127/102 H 10/16/18 07:26 O2 Sat (%) 95 10/16/18 07:26 O2 Delivery Mode Room Air Allergies/Adverse Reactions: chicken derived Allergy (Mild, Verified 10/16/18 07:26) oranges Allergy (Uncoded 10/07/16 06:18) Home Medications: Medication Instructions Recorded Amoxicillin/Clavulanate Pot 875 mg PO BID #20 tab 10/27/17 [Augmentin 875 MG TAB (*)] oxyCODONE HCL/ACETAMINOPHEN 1 each PO Q4-6PRN PRN #7 tablet 10/27/17 [Percocet 5-325 mg Tablet] Cephalexin [Keflex] 500 mg PO TID #30 cap 10/16/18 Hydrocodone/APAP 5/325 [[place] 1 - 2 each PO Q6 PRN #20 tab 10/16/18 5/325] Medical Decision Making - Diagnostics Imaging Results: CT abdomen pelvis without contrast: Negative for ureterolithiasis, nephrolithiasis or obvious intra-abdominal/retroperitoneal pathology. Images reviewed by myself and discussed with radiologist Dr. Hitchcock ED Course/Re-evaluation: Patient presents the ED for evaluation of 2 days of severe left flank pain and dysuria. The patient has had several month history of mild intermittent symptoms. The patient is nontoxic well-appearing. There is no evidence of septic physiology. Urinalysis does demonstrate evidence of a urinary tract infection with associated hematuria. Given the duration of her moderate intermittent symptoms I did obtain a CT scan to evaluate for the possibility of an infected kidney stone. Fortunately the results of that study demonstrate no evidence of obvious disease or nephrolithiasis. The patient was treated with IV ceftriaxone in the emergency department. She will be discharged home with a 10 day course of Keflex. She is given customary aftercare instructions and return precautions. Differential Diagnosis: Differential diagnosis considered includes nephrolithiasis, ureterolithiasis, pyelonephritis, dehydration, renal failure, perinephric abscess - Data Points Laboratory Results: Laboratory Results 10/16/18 07:45 10/16/18 07:45 10/16/18 10/16/18 10/16/18 07:45 07:45 07:30 WBC 10.68 10^3/uL H 10^3/uL (3.80-9.50) RBC 4.86 10^6/uL 10^6/uL (4.18-5.33) Hgb 13.9 g/dL g/dL (12.6-16.3) Hct 41.9 % % (38.0-47.0) MCV 86.2 fL fL (81.5-99.8) MCH 28.6 pg pg (27.9-34.1) MCHC 33.2 g/dL g/dL (32.4-36.7) RDW 13.2 % % (11.5-15.2) Plt Count 409 10^3/uL H 10^3/uL (150-400) MPV 9.2 fL fL (8.7-11.7) Neut % (Auto) 64.5 % % (39.3-74.2) Lymph % (Auto) 25.7 % % (15.0-45.0) [place] % (Auto) 7.6 % % (4.5-13.0) Eos % (Auto) 1.2 % % (0.6-7.6) Baso % (Auto) 0.6 % % (0.3-1.7) Nucleat RBC Rel Count 0.0 % % (0.0-0.2) Absolute Neuts (auto) 6.90 10^3/uL H 10^3/uL (1.70-6.50) Absolute Lymphs (auto) 2.74 10^3/uL 10^3/uL (1.00-3.00) Absolute Monos (auto) 0.81 10^3/uL H 10^3/uL (0.30-0.80) Absolute Eos (auto) 0.13 10^3/uL 10^3/uL (0.03-0.40) Absolute Basos (auto) 0.06 10^3/uL 10^3/uL (0.02-0.10) Absolute Nucleated RBC 0.00 10^3/uL 10^3/uL (0-0.01) Immature Gran % 0.4 % % (0.0-1.1) Immature Gran # 0.04 10^3/uL 10^3/uL (0.00-0.10) Sodium 138 mEq/L mEq/L (135-145) Potassium 4.3 mEq/L mEq/L (3.5-5.2) Chloride 100 mEq/L mEq/L (97-110) Carbon Dioxide 27 mEq/l mEq/l (22-31) Anion Gap 11 mEq/L mEq/L (6-14) BUN 15 mg/dL mg/dL (7-23) Creatinine 0.6 mg/dL mg/dL (0.6-1.0) Estimated GFR > 60 Glucose 90 mg/dL mg/dL (70-100) Calcium 10.0 mg/dL mg/dL (8.5-10.4) Urine Color Urine Appearance Urine pH Ur Specific [place] Urine Protein Urine Ketones Urine Blood Urine Nitrate Urine Bilirubin Urine Urobilinogen Ur Leukocyte Esterase Urine RBC Urine WBC Ur Epithelial Cells Urine Bacteria Urine Mucus Urine Glucose Urine Test NEGATIVE 10/16/18 07:30 WBC RBC Hgb Hct MCV MCH MCHC RDW Plt Count MPV Neut % (Auto) Lymph % (Auto) [place] % (Auto) Eos % (Auto) Baso % (Auto) Nucleat RBC Rel Count Absolute Neuts (auto) Absolute Lymphs (auto) Absolute Monos (auto) Absolute Eos (auto) Absolute Basos (auto) Absolute Nucleated RBC Immature Gran % Immature Gran # Sodium Potassium Chloride Carbon Dioxide Anion Gap BUN Creatinine Estimated GFR Glucose Calcium Urine Color YELLOW Urine Appearance HAZY Urine pH 7.0 (5.0-7.5) Ur Specific [place] 1.009 (1.002-1.030) Urine Protein NEGATIVE (NEGATIVE) Urine Ketones NEGATIVE (NEGATIVE) Urine Blood 2+ H (NEGATIVE) Urine Nitrate NEGATIVE (NEGATIVE) Urine Bilirubin NEGATIVE (NEGATIVE) Urine Urobilinogen NEGATIVE EU EU (0.2-1.0) Ur Leukocyte Esterase 2+ H (NEGATIVE) Urine RBC 15-25 /hpf H /hpf (0-3) Urine WBC 50-182 /hpf H /hpf (0-3) Ur Epithelial Cells TRACE /lpf /lpf (NONE-1+) Urine Bacteria TRACE /hpf H /hpf (NONE SEEN) Urine Mucus TRACE /lpf /lpf (NONE-1+) Urine Glucose NEGATIVE (NEGATIVE) Urine Test Medications Given: Ceftriaxone Sodium/Dextrose (Rocephin 1 Gm (Premix)) 50 mls @ 100 mls/hr IV EDNOW ONE PRN Reason: Protocol Stop: 10/16/18 09:07 Last Admin: 10/16/18 08:46 Dose: 50 mls Discontinued Medications Sodium Chloride (Ns) 1,000 mls @ 0 mls/hr IV EDNOW ONE; Wide Open PRN Reason: Protocol Stop: 10/16/18 07:47 Last Admin: 10/16/18 07:55 Dose: 1,000 mls Departure - Departure Disposition: Home, Routine, Self-Care Clinical Impression: Urinary tract infection Condition: Good Instructions: Urinary Tract Infection in Women (ED) Additional Instructions: 1. Take Ibuprofen or Motrin 600 mg by mouth three times a day. 2. Take antibiotics as prescribed. 3. [place] as needed for severe pain 4. I do recommend scheduling a follow-up appointment at [facility] to establish primary care. 5. Please return to the ED for markedly worsening symptoms or other concerns. Referrals: [facility],. [Clinic] - As per Instructions Prescriptions: Cephalexin [Keflex] 500 mg PO TID #30 cap
[2018-10-16 08:08] LABS: PLATELET COUNT 409 10^3/uL (150-400)
[2018-10-16 08:47] VITALS: BP 144/95
== END 2018-10-16 09:22 | disposition home or self-care (01) ==
DX: N39.0 Urinary tract infection, site not specified (principal); E86.9 Volume depletion, unspecified
CPT/HCPCS: 96365; J0696